=== PATIENT | male | born 1935 | race Caucasian/White ===

== ENCOUNTER 2020-04-11 13:55 | Inpatient (IN) ==
[2020-04-11] MEDS ORDERED: 0.9 % SODIUM CHLORIDE 1,000 ML IV ONE ×2 (15:27→17:23)
[2020-04-11] MEDS ORDERED: HYDROmorphone 0.5 MG/0.5 ML SYRINGE IV PRN (15:27)
[2020-04-11] MEDS ORDERED: ONDANSETRON 4 MG/2 ML VIAL IV ONE (15:27)
[2020-04-11] MEDS ORDERED: PIPERACILLIN SODIUM/TAZOBACTAM 3.375 GM in DEXTROSE 5% IN WATER 50 ML IV ONE (15:55)
[2020-04-11 16:56] LABS: Basophils # (Auto) 0.01 K/mcL (0.00-0.20); Basophils % (Auto) 0.1 % (0.0-2.0); Eosinophils # (Auto) 0.07 K/mcL (0.00-0.70); Eosinophils % (Auto) 0.8 % (0.0-7.0); Hematocrit 39.3 % (41.0-55.0); Hemoglobin 14.6 g/dL (13.5-16.5); Lymphocytes % (Auto) 14.3 % (15.0-49.0); Mean Cell Volume 91.4 fL (80.0-100.0); Mean Corpuscular HGB Conc 37.2 g/dL (31.0-36.0); Mean Platelet Volume 11.1 fL (7.4-10.4); Monocytes # (Auto) 1.18 K/mcL (0.10-0.90); Neutrophils % (Auto) 71.8 % (38.0-78.0); Platelet Count 227 K/mcL (140-440); Red Cell Distribution Width 12.2 % (11.5-14.5); WBC 9.1 K/mcL (4.5-11.0)
[2020-04-11 17:01] LABS: Thyroid Stimulating Hormone 2.68 uIU/mL (0.27-5.01)
[2020-04-11 17:06] LABS: ALT/SGPT 20 U/L (<40); AST/SGOT 28 U/L (<40); Albumin 3.8 gm/dL (3.2-5.2); Albumin/Globulin Ratio 1.1 (1.0-2.3); Alkaline Phosphatase 94 U/L (39-117); Bilirubin,Total 0.6 mg/dL (0.1-1.0); Blood Urea Nitrogen 72 mg/dL (8-23); Calcium 9.6 mg/dL (8.6-10.4); Carbon Dioxide 27 mmol/L (22-30); Chloride 80 mmol/L (96-108); Globulin 3.4 gm/dL (2.2-3.7); Glomerular Filtration Rate 20; Glucose 138 mg/dL (70-105)
[2020-04-11] MEDS ORDERED: POTASSIUM CHLORIDE 20 MEQ TABLET PO ONE ×2 (17:07→22:00)
[2020-04-11] MEDS ORDERED: POTASSIUM CHLORIDE 40 MEQ in DEXTROSE 5% IN WATER 500 ML IV ONE (17:07)
--- NOTE | 2020-04-11 17:13 | Emergency Department Note ---
HPI General Chief complaint: Weakness Stated complaint: Weak, cough Time Seen by Provider: 04/11/20 14:32 Source: patient and EMS Mode of arrival: EMS Limitations: no limitations History of Present Illness HPI Narrative: Narrative: Related Data Home Medications Medication Instructions Recorded Confirmed apixaban [Eliquis] 2.5 mg PO BID 04/11/20 04/11/20 atenolol 25 mg PO QDAY 04/11/20 04/11/20 fosinopril 40 mg PO QDAY 04/11/20 04/11/20 furosemide 80 mg PO QDAY 04/11/20 04/11/20 omeprazole 2 PO 04/11/20 simvastatin 10 mg PO QHS 04/11/20 04/11/20 Allergies Allergy/AdvReac Type Severity Reaction Status Date / Time NKA Allergy Unknown Uncoded 07/18/14 05:17 No to Iodine Allergy Unknown Unknown Uncoded 07/18/14 05:17 No to Latex Allergy Unknown Uncoded 07/18/14 05:17 Review of Systems ROS ROS Narrative: Narrative: PFSH Narrative Patient History Narrative: Narrative: Medical/Surgical/Family History All Active Problems (Updated 04/11/20 @ 18:02 by Moses Collins DO) Sepsis (Acute) Hypokalemia (Acute) Acute renal failure (ARF) (Acute) Hyponatremia (Acute) Hypermagnesemia (Acute) Elevated brain natriuretic peptide (BNP) level (Acute) Chronic anticoagulation (Acute) Daily consumption of alcohol (Acute) Obesity (BMI 30.0-34.9) (Acute) History of CHF (congestive heart failure) (Acute) Atrial fibrillation, chronic (Acute) Medical History (Updated 04/11/20 @ 18:02 by Moses Collins DO) Atrial fibrillation, chronic Chronic anticoagulation Apixaban/Eliquis Daily consumption of alcohol Was six beer per day. Changing to three drinks per day in March 2020. History of CHF (congestive heart failure) Presumptive, based on patient's description of why he was put on diuretics s everal years ago with "some fluid around my heart and lungs" and given by a clinical trial manager. Obesity (BMI 30.0-34.9) Surgical History (Updated 04/11/20 @ 17:50 by Moses Collins DO) History of appendectomy History of arthroscopy of right knee History of herniorrhaphy Umbilical History of herniorrhaphy Inguinal History of repair of right rotator cuff History of tonsillectomy Family History (Updated 04/11/20 @ 17:52 by Moses Collins DO) Myocardial infarction Mother, Onset Age: 78 Social History Smoking Status: Unknown if ever smoked Exam Narrative Narrative: Narrative: General Limitations: no limitations General appearance: Present alert, grimacing (At times with generalized discomforts.), in no apparent distress, malaise (Moderate) and nontoxic Head Head: Present atraumatic and normocephalic Eye Eye: Present normal appearance, PERRL and EOMI ENT ENT: Present mucous membranes dry Neck Neck: Present trachea midline; Absent lymphadenopathy and thyromegaly Chest Chest: Present symmetric chest wall rise Respiratory Respiratory: Present normal lung sounds bilaterally; Absent respiratory distress, rales/crackles, wheezes, stridor, accessory muscle use and prolonged expiratory phase Cardiovascular Cardiovascular: Present regular rate and irregular rhythm; Absent systolic murmur and diastolic murmur Adbominal Abdominal: Present soft; Absent distention, tenderness, guarding, rebound, rigidity, organomegaly and mass Extremities Extremities: Present pretibial edema (Trace or mild); Absent pedal edema, calf tenderness and cyanosis Back Back: Absent CVA tenderness (R), CVA tenderness (L) and spinous process tenderness Neurological Neurological: Present alert and oriented X3 Psychiatric Psychiatric: Present normal affect, flat affect (Mildly) and serious; Absent depressed, agitated, anxious and poor eye contact Skin Skin: Present warm (WNL), dry and other (Moderate to large skin slip on the outer left forearm with the slip not perfectly in place. On the right lower extremity has a bandaged lesion.); Absent cyanosis and pallor Course Vital Signs Vital signs: Vital Signs Temperature 97 F 04/11/20 13:56 Pulse Rate 61 04/11/20 13:56 Respiratory Rate 18 04/11/20 13:56 Blood Pressure 120/81 04/11/20 13:56 Pulse Oximetry (%) 96 04/11/20 13:56 Temperature 97 F 04/11/20 13:56 Pulse Rate 91 H 04/11/20 15:46 Respiratory Rate 18 04/11/20 16:31 Blood Pressure 137/87 04/11/20 17:17 Pulse Oximetry (%) 100 04/11/20 15:46 MDM MDM Narrative Medical decision making narrative: Narrative: 2:58 PM - interviewed and examined. Terms of multiple organ systems. Rule out sepsis, a urinary tract infection, dehydration, cardiac or metabolic or infectious complicating concerns and/or issues. Multiple labs, imaging, etc. EKG demonstrates atrial fibrillation without ACS. 5:06 PM - potassium level called as 2.5. Magnesium a bit elevated at 3.2. BNP elevated at 5576. No prior levels to compare with. Troponin 0 0.01. TSH 2.68. CBC is largely unremarkable. (Very slight decrease under normal of RBC at 4.30 (4.5-5.90) and hematocrit of 39.3 (41.0-55.0). CMP is pending. Because of the low potassium will go ahead with a potassium rider and oral potassium. 5:08 PM - chest x-ray on my review: No specific infiltrate (unless at the right cardiophrenic border). No pneumo. Ribs unremarkable. Borderline cardiomegaly. Fissures in the right side appeared to be visible/present. Possible mild CHF. 5:11 PM - CMP returns with a sodium also low at 128, chloride of 80, anion gap of 21.0, BUN 72, creatinine 2.8. Glucose is 138. 5:15 PM - spoke with patient and he reports he has no history prior of kidney disease. His CODE STATUS he indicates his DNR. He requested Covid test. He is likely to be admitted based on his Creatinine of 2.8, potassium of 2.5, and probable sepsis with a lactic acid elevated. I will request previous labs from [facility], February,. 5:20 PM -labs from [facility] on date February include a creatinine of 1.0 in the labs of 2 days prior were 1.1. In other words, he has acute renal failure presently. His urine was moderately dark yellow-orange just now. A year ago did have minor anemia at that time. Glucose was normal. Urine was unremarkable at that time Chest x-ray on 14 February demonstrated "infiltrate in the right upper lobe suspect for pneumonia." 5:32 AM - I spoke with Dr. Rosas, wool supplier, who will consult on patient. He requests order of a urine eosinophil evaluation which I ordered. He recommends this based on patient recently being on the Bactrim. He is aware of the elevated magnesium and the oral and IV potassium replacement. A second liter of normal saline also was previously initiated. Blood cultures were also obtained and Zosyn previously given. Urine was already sent for a culture but likely to be negative because of patient having his last antibiotic this morning. 5:46 PM - I spoke with Dr. Garcia, hospitalist, who will see patient and admit him to the hospital, assuming care. Lab Data Result diagrams: 04/11/20 15:53 04/11/20 15:53 Labs: Lab Results 04/11/20 04/11/20 04/11/20 Range/Units 15:53 15:53 15:53 WBC 9.1 (4.5-11.0) K/mcL RBC 4.30 L (4.50-5.90) M/mcL Hgb 14.6 (13.5-16.5) g/dL Hct 39.3 L (41.0-55.0) % MCV 91.4 (80.0-100.0) fL MCH 34.0 (26.0-34.0) pg MCHC 37.2 H (31.0-36.0) g/dL RDW 12.2 (11.5-14.5) % Plt Count 227 (140-440) K/mcL MPV 11.1 H (7.4-10.4) fL Neut % (Auto) 71.8 (38.0-78.0) % Lymph % (Auto) 14.3 L (15.0-49.0) % [place] % (Auto) 13.0 H (1.0-12.0) % Eos % (Auto) 0.8 (0.0-7.0) % Baso % (Auto) 0.1 (0.0-2.0) % Lymph # (Auto) 1.30 L (1.50-4.80) K/mcL [place] # (Auto) 1.18 H (0.10-0.90) K/mcL Eos # (Auto) 0.07 (0.00-0.70) K/mcL Baso # (Auto) 0.01 (0.00-0.20) K/mcL Absolute Neutrophils 6.55 (1.80-8.00) K/mcL Sodium 128 L (133-145) mmol/L Potassium 2.5 L* (3.3-5.1) mmol/L Chloride 80 L (96-108) mmol/L Carbon Dioxide 27 (22-30) mmol/L Anion Gap 21.0 H (8.0-16.0) BUN 72 H (8-23) mg/dL Creatinine 2.8 H (0.7-1.2) mg/dL GFR Calculation 20 Glucose 138 H (70-105) mg/dL Calcium 9.6 (8.6-10.4) mg/dL Magnesium 3.2 H (1.6-2.5) mg/dL Total Bilirubin 0.6 (0.1-1.0) mg/dL AST 28 (<40) U/L ALT 20 (<40) U/L Alkaline Phosphatase 94 (39-117) U/L Troponin T 0.01 (<0.03) ng/mL NT-Pro-B Natriuret Pep 5576.0 H (<450.0) pg/mL Total Protein 7.2 (5.9-8.4) gm/dL Albumin 3.8 (3.2-5.2) gm/dL Globulin 3.4 (2.2-3.7) gm/dL Albumin/Globulin Ratio 1.1 (1.0-2.3) TSH 2.68 (0.27-5.01) uIU/mL Discharge Plan Patient/Caregiver Discharge Instructions Pt seen by [employer]/PA only: No Clinical Impression: Sepsis, Hypokalemia, Acute renal failure (ARF), Hyponatremia, Hypermagnesemia, Elevated brain natriuretic peptide (BNP) level Patient Disposition: Xfer As Inpt ([facility]) Follow up with: Fitz Deleon MD [Primary Care Provider] - Prescriptions: No Action simvastatin 10 mg Tablet 10 mg PO QHS RF: 0 atenolol 25 mg Tablet 25 mg PO QDAY RF: 0 furosemide 80 mg Tablet 80 mg PO QDAY RF: 0 fosinopril 40 mg Tablet 40 mg PO QDAY RF: 0 Eliquis 2.5 mg Tablet 2.5 mg PO BID RF: 0 omeprazole 20 mg Capsule,Delayed Release(Dr/Ec) 2 PO RF: 0
[2020-04-11] MEDS ORDERED: POTASSIUM CHLORIDE 20 MEQ/10 ML VIAL IV ONE (17:36)
--- NOTE | 2020-04-11 18:06 | Internal Med History&Physical ---
HPI History of Present Illness Patient information: Note initiated : 04/11/20 at 5:57 pm Service Date, if different from initiated Date: [] Patient: Isaac Conde a 85 y/o M admitted on for Weak, cough. Chief Complaint: [] History of present illness: Mr. Conde is a 85 year old M Presents the ED with generalized aches and pains and feeling very weak and fatigued. He states that he started feeling crummy about a week ago. Was diagnosed with urinary tract infection and has had dysuria urgency frequency. He finished Bactrim this morning. Because of the worsening of his weakness generalized aches and pains that he came in the ED. All signs are stable. However he did have a hyponatremia and hypokalemia. He had acute kidney injury and an elevated lactate 3.5. Urinalysis is pending. He was started on IV antibiotics and given IV fluid boluses. Case discussed with Dr. Rosas who recommended checking urine eosinophils as since has been on Bactrim. Also describes decreased oral intake the past few days. Denies fever chills. Denies chest pain/ coughing. No diarrhea. Review of Systems: Pertinent positives as above. Denies headache/fever/chills/nausea/vomiting/chest or abdominal pain/cough/diarrhea. Remaining 10 point review of system reviewed negative PFSH PFSH All Active Problems (Updated 04/11/20 @ 18:02 by Moses Collins DO) Sepsis (Acute) Hypokalemia (Acute) Acute renal failure (ARF) (Acute) Hyponatremia (Acute) Hypermagnesemia (Acute) Elevated brain natriuretic peptide (BNP) level (Acute) Chronic anticoagulation (Acute) Daily consumption of alcohol (Acute) Obesity (BMI 30.0-34.9) (Acute) History of CHF (congestive heart failure) (Acute) Atrial fibrillation, chronic (Acute) Medical History (Updated 04/11/20 @ 18:02 by Moses Collins DO) Atrial fibrillation, chronic Chronic anticoagulation Apixaban/Eliquis Daily consumption of alcohol Was six beer per day. Changing to three drinks per day in March 2020. History of CHF (congestive heart failure) Presumptive, based on patient's description of why he was put on diuretics several years ago with "some fluid around my heart and lungs" and given by a rn maternal child. Obesity (BMI 30.0-34.9) Surgical History (Updated 04/11/20 @ 17:50 by Moses Collins DO) History of appendectomy History of arthroscopy of right knee History of herniorrhaphy Umbilical History of herniorrhaphy Inguinal History of repair of right rotator cuff History of tonsillectomy Family History (Updated 04/11/20 @ 17:52 by Moses Collins DO) Mother Myocardial infarction, Onset Age: 78 Social History (Updated 04/11/20 @ 18:01 by Bashir Garcia DO) smoking status: Unknown if ever smoked additional history: Social history: Patient quit smoking in the early 80s drinks 4-6 drinks of alcohol per night but lately has cut down to 3. Uses a cane to ambulate sometimes a walker in the middle the night. By himself. MEDS/ALLERGIES Home Medications and Allergies Home Medications Medication Instructions Recorded Confirmed Type apixaban [Eliquis] 2.5 mg PO BID 04/11/20 04/11/20 History atenolol 25 mg PO QDAY 04/11/20 04/11/20 History fosinopril 40 mg PO QDAY 04/11/20 04/11/20 History furosemide 80 mg PO QDAY 04/11/20 04/11/20 History omeprazole 2 PO 04/11/20 History simvastatin 10 mg PO QHS 04/11/20 04/11/20 History Allergies Allergy/AdvReac Type Severity Reaction Status Date / Time NKA Allergy Unknown Uncoded 07/18/14 05:17 No to Iodine Allergy Unknown Unknown Uncoded 07/18/14 05:17 No to Latex Allergy Unknown Uncoded 07/18/14 05:17 EXAM Constitutional Vitals: Temp Pulse Resp BP Pulse Ox 97 F 91 H 18 137/87 100 04/11/20 13:56 04/11/20 15:46 04/11/20 16:31 04/11/20 17:17 04/11/20 15:46 Exam: General: Alert, Awake, No acute Distress, obese Eyes/N/T: EOMI, PERRL, dry MM, Head/Neck: neck supple, normocephalic atraumatic, no JVD CV: irreg irreg, No murmurs, normal s1/s2 Pulm: Clear b/l, no wheezing/rhonchi/rales Abd: soft, nontender, +BS x4 Ext: no clubbing/cyanosis, 2-3+ chronic b/l LE edema Neuro: Alert, no focal deficits, moves all extremities, CN 2-12 grossly intact, symmetrical strength b/l upper/lower, sensations intact b/l upper/lower Skin: warm/dry DATA Data Completed and Pending Labs: Labs from last 24 hours 04/11/20 04/11/20 04/11/20 16:23 16:23 16:23 WBC RBC Hgb Hct MCV MCH MCHC RDW Plt Count MPV Neut % (Auto) Lymph % (Auto) [place] % (Auto) Eos % (Auto) Baso % (Auto) Lymph # (Auto) [place] # (Auto) Eos # (Auto) Baso # (Auto) Absolute Neutrophils Sodium Potassium Chloride Carbon Dioxide Anion Gap BUN Creatinine GFR Calculation Glucose Calcium Magnesium Total Bilirubin AST ALT Alkaline Phosphatase Total Creatine Kinase Troponin T NT-Pro-B Natriuret Pep Total Protein Albumin Globulin Albumin/Globulin Ratio TSH Urine Eosinophils Ur Random Creatinine Pending Ur Random Sodium Pending Urine Urea Nitrogen Pending 04/11/20 04/11/20 04/11/20 16:23 15:53 15:53 WBC RBC Hgb Hct MCV MCH MCHC RDW Plt Count MPV Neut % (Auto) Lymph % (Auto) [place] % (Auto) Eos % (Auto) Baso % (Auto) Lymph # (Auto) [place] # (Auto) Eos # (Auto) Baso # (Auto) Absolute Neutrophils Sodium Potassium Chloride Carbon Dioxide Anion Gap BUN Creatinine GFR Calculation Glucose Calcium Magnesium Total Bilirubin AST ALT Alkaline Phosphatase Total Creatine Kinase Pending Troponin T 0.01 NT-Pro-B Natriuret Pep Total Protein Albumin Globulin Albumin/Globulin Ratio TSH Urine Eosinophils Pending Ur Random Creatinine Ur Random Sodium Urine Urea Nitrogen 04/11/20 04/11/20 15:53 15:53 WBC 9.1 RBC 4.30 L Hgb 14.6 Hct 39.3 L MCV 91.4 MCH 34.0 MCHC 37.2 H RDW 12.2 Plt Count 227 MPV 11.1 H Neut % (Auto) 71.8 Lymph % (Auto) 14.3 L [place] % (Auto) 13.0 H Eos % (Auto) 0.8 Baso % (Auto) 0.1 Lymph # (Auto) 1.30 L [place] # (Auto) 1.18 H Eos # (Auto) 0.07 Baso # (Auto) 0.01 Absolute Neutrophils 6.55 Sodium 128 L Potassium 2.5 L* Chloride 80 L Carbon Dioxide 27 Anion Gap 21.0 H BUN 72 H Creatinine 2.8 H GFR Calculation 20 Glucose 138 H Calcium 9.6 Magnesium 3.2 H Total Bilirubin 0.6 AST 28 ALT 20 Alkaline Phosphatase 94 Total Creatine Kinase Troponin T NT-Pro-B Natriuret Pep 5576.0 H Total Protein 7.2 Albumin 3.8 Globulin 3.4 Albumin/Globulin Ratio 1.1 TSH 2.68 Urine Eosinophils Ur Random Creatinine Ur Random Sodium Urine Urea Nitrogen A/P Narrative A/P Narrative: A: *UTI: *Sepsis: w/elevated lactate. 2/2 above *WILLIAM: 2/2 above + volume depletion + ?bactrim *Volume depletion: *Hyponatremia/hypokalemia (been mildly hyponatremic on old labs): *HTN/HLD: *COPD (typically uses 2L@night, but stopped on own 1-month ago): *Chronic Afib: On Eliquis and atenolol *Obesity: *GERD: *Alcohol use 4-6 drinks/day but cut back this month to 3: P: -Rocephin, pending UC/BC -IVF -Monitor renal function and urine output -Monitor electrolytes and replace -pending urine eosinophils -Continue home Eliquis/BB -Hold home ACEI/Lasix for renal fxn -compression wraps to legs -PT/OT -Clarify home medications, Spiriva -ppx: Eliquis/home PPI DNR Time Spent With Patient Time: Total time spent is greater than 50% in coordination of care (as documented) at patient's floor/unit and/or counseling patient:
--- NOTE | 2020-04-11 18:34 | Nephrology Consult Note ---
HPI Data of Consult Primary Care Provider: Fitz Deleon Consult Narrative Patient Information: Note initiated : 04/11/20 at 6:32 pm Service Date, if different from initiated Date: [] Patient: Isaac Conde 85 y/o M admitted on for Weak, cough. Chief Complaint: [ARF] I was called by the ED physician concerning an 85 yr male with a Hx of chronic A fib, CHF, morbid obesity and chronic EtOH intake. Prior records suggest SCr 1.0-1.2 over past 13 months. Developed UTI Sx ~1 week ROD [employer] and was on TMP/SMX till this am. Developed worsening myalgias and fatigue and was brought by EMS to ED Tm 36.1 BP 109/60-137/75 HR 30-90 with most in 60-70 range RR 20's 02 sat >95% Laboratory Results - last 48 hr 04/11/20 04/11/20 04/11/20 15:53 15:53 15:53 WBC 9.1 RBC 4.30 L Hgb 14.6 Hct 39.3 L MCV 91.4 MCH 34.0 MCHC 37.2 H RDW 12.2 Plt Count 227 MPV 11.1 H Neut % (Auto) 71.8 Lymph % (Auto) 14.3 L [place] % (Auto) 13.0 H Eos % (Auto) 0.8 Baso % (Auto) 0.1 Lymph # (Auto) 1.30 L [place] # (Auto) 1.18 H Eos # (Auto) 0.07 Baso # (Auto) 0.01 Absolute Neutrophils 6.55 Sodium 128 L Potassium 2.5 L* Chloride 80 L Carbon Dioxide 27 Anion Gap 21.0 H BUN 72 H Creatinine 2.8 H GFR Calculation 20 Glucose 138 H Calcium 9.6 Magnesium 3.2 H Total Bilirubin 0.6 AST 28 ALT 20 Alkaline Phosphatase 94 Total Creatine Kinase 185 Troponin T 0.01 NT-Pro-B Natriuret Pep 5576.0 H Total Protein 7.2 Albumin 3.8 Globulin 3.4 Albumin/Globulin Ratio 1.1 TSH 2.68 Ur Random Creatinine 85 Ur Random Sodium 25 Urine Urea Nitrogen 655 FeNa 0.84% FeUrea 26.7% Home meds: NOAC B-Suma ACEi PPi loop diuretic Statin cc:: CC: Review of Systems All systems: reviewed and no additional remarkable complaints except as stated Constitutional Constitutional: Present malaise and weakness; Absent fever(s) Cardiovascular Cardiovascular: Present dyspnea, leg edema and orthopnea Respiratory Respiratory: Present dyspnea on exertion Gastrointestinal Gastrointestinal: Absent diarrhea and vomiting Neurological Neurological: Present weakness Psychiatric Psychiatric: Present other (No hx of DT'd or EtOH withdrawal Sz); Absent hallucinations PFSH PFSH All Active Problems (Updated 04/11/20 @ 18:02 by Moses Collins DO) Sepsis (Acute) Hypokalemia (Acute) Acute renal failure (ARF) (Acute) Hyponatremia (Acute) Hypermagnesemia (Acute) Elevated brain natriuretic peptide (BNP) level (Acute) Chronic anticoagulation (Acute) Daily consumption of alcohol (Acute) Obesity (BMI 30.0-34.9) (Acute) History of CHF (congestive heart failure) (Acute) Atrial fibrillation, chronic (Acute) Medical History (Updated 04/11/20 @ 18:02 by Moses Collins DO) Atrial fibrillation, chronic Chronic anticoagulation Apixaban/Eliquis Daily consumption of alcohol Was six beer per day. Changing to three drinks per day in March 2020. History of CHF (congestive heart failure) Presumptive, based on patient's description of why he was put on diuretics several years ago with "some fluid around my heart and lungs" and given by a middle school history teacher. Obesity (BMI 30.0-34.9) Surgical History (Updated 04/11/20 @ 17:50 by Moses Collins DO) History of appendectomy History of arthroscopy of right knee History of herniorrhaphy Umbilical History of herniorrhaphy Inguinal History of repair of right rotator cuff History of tonsillectomy Family History (Updated 04/11/20 @ 17:52 by Moses Collins DO) Mother Myocardial infarction, Onset Age: 78 Social History (Updated 04/11/20 @ 18:01 by Bashir Garcia DO) smoking status: Unknown if ever smoked additional history: Social history: Patient quit smoking in the early 80s drinks 4-6 drinks of alcohol per night but lately has cut down to 3. Uses a cane to ambulate sometimes a walker in the middle the night. By himself. MEDS/ALLERGIES Home Medications and Allergies Home Medications Medication Instructions Recorded Confirmed Type apixaban [Eliquis] 2.5 mg PO BID 04/11/20 04/11/20 History atenolol 25 mg PO QDAY 04/11/20 04/11/20 History febuxostat [Uloric] 40 mg PO QDAY 04/11/20 04/11/20 History fosinopril 40 mg PO QDAY 04/11/20 04/11/20 History furosemide 40 mg PO BID 04/11/20 04/11/20 History magnesium 250 mg PO QDAY 04/11/20 04/11/20 History methylprednisolone 4 mg PO QAM 04/11/20 04/11/20 History omeprazole 80 mg PO DAILY 04/11/20 04/11/20 History simvastatin 10 mg PO QHS 04/11/20 04/11/20 History tiotropium bromide [Spiriva with 1 cap INHALATION QDAY 04/11/20 04/11/20 History HandiHaler] vitamins A,C,Q-gziq-mwwdif 2 tab PO BID 04/11/20 04/11/20 History [Ocuvite Preservision] Allergies Allergy/AdvReac Type Severity Reaction Status Date / Time No Known Drug Allergies Allergy Verified 04/11/20 20:11 Physical Examination Vital Signs Vital signs: Temp Pulse Resp BP Pulse Ox 36.1 C 68 23 H 136/73 100 04/11/20 13:56 04/11/20 18:16 04/11/20 18:16 04/11/20 18:16 04/11/20 18:16 General Appearance General appearance: obese and chronically ill EENT EENT: PERRL and mucous membranes dry Neck Neck: no JVD and no carotid bruit Respiratory Respiratory: course breath sounds and rhonchi Cardiovascular Cardiology: no rub, no gallops, edema, normal S1 and normal S2 Integumentary Integumentary: erythema, ecchymotic, chronic venous stasis and hyperkeratosis Neurologic Neurologic: no focal deficit, no asterixis, alert and oriented x3 and CN 3-12 intact Musculoskeletal Musculoskeletal: decreased ROM Psychiatric Psychiatric: mood/affect appropriate Results Lab Results Result Diagrams: 04/11/20 15:53 04/11/20 15:53 Lab results: Most recent lab results Calcium 9.6 mg/dL (8.6-10.4) 04/11/20 15:53 Magnesium 3.2 mg/dL (1.6-2.5) H 04/11/20 15:53 A/P Assessment and plan (1) Acute renal failure (ARF): Assessment and plan: D/Dx 1. Acute prerenal azotemia Evidenced by low FeNa Likely etiology is dehydration from look diuretics and decreased po intake in combination with ACEi and possible underlying CHF If this is the case should improve within 72 hours after holding fosinopril and lasix Hydrate Review U/A 2. Recent Bactrim therapy requires examination for signs and sx of Acute Interstitial Nephritis. Urine eos Check peripheral smear for eos ESR and CRP 3. Obstruction Renal U/S 4. GN Nothing to date to suggest this Review urine studies 5. ATN Could have some early ATN but urine indicies currently favor prerenal insult Look for casts in urine Low CPK makes rhabdomyolysis unlikely Status: Acute Qualifiers: Acute renal failure type: unspecified Qualified Code(s): N17.9 - Acute kidney failure, unspecified (2) Hypokalemia: Assessment and plan: The combination of low Na and K strongly suggests diuretic related plus excess free water and low K intake from excessive BEER intake If he has CHF, sharad levels are usually high and contribute to the hyponatremia He must have a profound deficiency in K at baseline as Bactrim, ACEi and ARF all tend to raise the serum potassium. Check for GI K losses with diarrhea Status: Acute (3) Hyponatremia: Assessment and plan: As above: loop diuretics and excess free H20 (Beer) tend to drive Na down, as dose low grade elevation of Ang II/Sharad system with CHF. NS IV and free water restriction upon dischaarge Needs to quit drinking beer Status: Acute (4) Daily consumption of alcohol: Assessment and plan: Stopping EtOH will be colon to correcting and preventing future electrolyte abnormalities. Status: Acute Comment: Was six beer per day. Changing to three drinks per day in March 2020. Time Spent With Patient Time: Total time spent is greater than 50% in coordination of care (as joel dawson) at patient's floor/unit and/or counseling patient:
[2020-04-11] MEDS ORDERED: ONDANSETRON 4 MG/2 ML VIAL IV PRN (18:55)
[2020-04-11] MEDS ORDERED: POTASSIUM CHLORIDE 20 MEQ TABLET PO PRN ×2 (18:55)
[2020-04-11] MEDS ORDERED: SENNOSIDES 1 TABLET PO PRN (18:55)
[2020-04-11] MEDS ORDERED: POTASSIUM CHLORIDE 40 MEQ in DEXTROSE 5% IN WATER 500 ML IV PRN (18:55)
[2020-04-11] MEDS ORDERED: IPRATROPIUM/ALBUTEROL 3 ML AMPUL.NEB NEB PRN (18:55)
[2020-04-11] MEDS ORDERED: MAGNESIUM SULFATE 2 GM/50 ML BAG IV PRN (18:55)
--- NOTE | 2020-04-11 19:06 | XRay Report ---
CLINICAL INFORMATION: short of breath, wekaness edema COMPARISON: 11/09/2007 FINDINGS: Heart size, mediastinum and pulmonary vessels are normal. Minimal patchy right basilar infiltrate has developed. No effusions. IMPRESSION: Minimal patchy right basilar infiltrate. Interpreted and Authenticated by: Durga Woo 04/11/20
[2020-04-11 19:34] LABS: Appearance,Urine CLEAR (Clear); Bilirubin,Urine Negative (Negative); Color,Urine AMBER; Glucose,Urine (UA) Negative (Negative); Ketones,Urine 5 mg/dL (Negative); Leukocyte Esterase,Urine 250 /ug (Negative); Mucus,Urine FEW /hpf; Nitrate,Urine Color Interference (Negative); Protein,Urine 30 mg/dL (Negative); Specific Gravity,Urine 1.016 (1.000-1.035); Urine Blood Negative (Negative); Urine Hyaline Cast 19 /lph (0-2); Urine RBC 2 /hpf (0-3); Urine Squamous Epithelial Cell 0 /hpf (0-4); Urine WBC > 182 /hpf (0-4)
[2020-04-11 19:37] LABS: Culture Indicated,Urine No
[2020-04-11] MEDS: APIXABAN 5 MG TABLET PO SCH (21:14)
[2020-04-11] MEDS: cefTRIAXone 2 GM in DEXTROSE 5% IN WATER 50 ML IV SCH (21:14)
[2020-04-11] MEDS ORDERED: cefTRIAXone 2 GM VIAL ONE (21:14)
[2020-04-11] MEDS: DOCUSATE SODIUM 100 MG CAPSULE PO SCH (21:15)
[2020-04-11] MEDS: SIMVASTATIN 10 MG TABLET PO SCH (21:15)
[2020-04-11] MEDS: 0.9 % SODIUM CHLORIDE 10 ML SYRINGE IV SCH (21:15)
[2020-04-12] MEDS: 0.9 % SODIUM CHLORIDE 1,000 ML IV SCH ×3 (01:01→14:12)
[2020-04-12] MEDS: 0.9 % SODIUM CHLORIDE 10 ML SYRINGE IV SCH ×3 (05:56→21:32)
[2020-04-12 06:50] LABS: Hematocrit 34.6 % (41.0-55.0); Hemoglobin 12.4 g/dL (13.5-16.5); Mean Cell Volume 92.8 fL (80.0-100.0); Mean Corpuscular HGB Conc 35.8 g/dL (31.0-36.0); Mean Platelet Volume 10.4 fL (7.4-10.4); Platelet Count 178 K/mcL (140-440); RBC 3.73 M/mcL (4.50-5.90); Red Cell Distribution Width 12.3 % (11.5-14.5); WBC 7.4 K/mcL (4.5-11.0)
[2020-04-12] MEDS: PANTOPRAZOLE 40 MG PACKET PO SCH (07:43)
[2020-04-12 07:59] LABS: ALT/SGPT 17 U/L (<40); AST/SGOT 25 U/L (<40); Albumin 3.1 gm/dL (3.2-5.2); Albumin/Globulin Ratio 1.2 (1.0-2.3); Alkaline Phosphatase 73 U/L (39-117); Bilirubin,Direct < 0.2 mg/dL (<0.3); Bilirubin,Total 0.5 mg/dL (0.1-1.0); Blood Urea Nitrogen 55 mg/dL (8-23); Calcium 8.2 mg/dL (8.6-10.4); Carbon Dioxide 29 mmol/L (22-30); Chloride 91 mmol/L (96-108); Globulin 2.5 gm/dL (2.2-3.7); Glomerular Filtration Rate 26; Glucose 93 mg/dL (70-105); Lactate Dehydrogenase 255 U/L (135-225); Phosphorous 2.2 mg/dL (2.5-4.5); Triglycerides 211 mg/dL (<150); Uric Acid 10.7 mg/dL (2.5-8.0)
[2020-04-12] MEDS: ATENOLOL 25 MG TABLET PO SCH (08:41)
[2020-04-12] MEDS: DOCUSATE SODIUM 100 MG CAPSULE PO SCH ×2 (08:41→21:30)
[2020-04-12] MEDS: APIXABAN 5 MG TABLET PO SCH ×2 (08:42→21:29)
--- NOTE | 2020-04-12 08:47 | Internal Med Progress Note ---
SUBJECTIVE Subjective Patient information: Note initiated : 04/12/20 at 8:41 am Service Date, if different from initiated Date: [] Patient: Isaac Conde 85 y/o M admitted on 04/11/20 for Weak, cough. Chief Complaint: [] Interval history: History of present illness: Mr. Conde is a 85 year old M Presents the ED with generalized aches and pains and feeling very weak and fatigued. He states that he started feeling crummy about a week ago. Was diagnosed with urinary tract infection and has had dysuria urgency frequency. He finished Bactrim this morning. Because of the worsening of his weakness generalized aches and pains that he came in the ED. All signs are stable. However he did have a hyponatremia and hypokalemia. He had acute kidney injury and an elevated lactate 3.5. Urinalysis is pending. He was started on IV antibiotics and given IV fluid boluses. Case discussed with Dr. Rosas who recommended checking urine eosinophils as since has been on Bactrim. Also describes decreased oral intake the past few days. Denies fever chills. Denies chest pain/ coughing. No diarrhea. 04/12 Patient feeling better today no overnight event or new complaints. Low potassium. But improved renal function. Review of Systems: denies headache/fever/chills/nausea/vomiting/chest or abdominal pain/cough/dyspnea/diarrhea. Otherwise see above. Constitutional Vitals: Vital Signs Temp Pulse Resp BP Pulse Ox 98.5 F 79 18 135/70 96 04/12/20 06:49 04/12/20 06:49 04/12/20 06:49 04/12/20 06:49 04/12/20 06:49 Period Temp Pulse Resp BP Sys/Koo Pulse Ox Last 24 Hr 97 F-98.5 F 30-91 16-27 109-137/59-89 93-100 Intake and Output 04/11/20 04/12/20 04/12/20 21:59 05:59 13:59 Intake Total 1100 1940 240 Output Total 125 550 250 Balance 975 1390 -10 Weight 108.136 kg Intake & Output: Intake & Output 04/11/20 04/12/20 04/12/20 21:59 05:59 13:59 Intake Total 1100 1940 240 Output Total 125 550 250 Balance 975 1390 -10 Weight 108.136 kg Intake: IV 1100 1520 Sodium Chloride 0.9% 1,000 ml @ 1000 1000 Wide Open IV BOLUS ONE Rx#: [id number] Zosyn 3.375 gm In Dextrose 5% 50 in Water 50 ml @ 100 mls/hr IV ONCE ONE Rx#:[id number] Potassium Chloride 40 Meq In 520 Dextrose 5% in Water 500 ml @ 130 mls/hr IV ONCE ONE Rx#: [id number] Rocephin 2 gm In Dextrose 5% in 50 Water 50 ml @ 100 mls/hr IV Q24H [facility] Rx#:[id number] Oral 420 240 Output: Void Amount 125 550 250 Other: Meal Breakfast Percent of Meal Consumed 25% Feeding Ability Independent Urine Appearance Clear Clear Clear Urine Color [employer] Bright Yellow Exam: General: Alert, Awake, No acute Distress, obese Eyes/N/T: EOMI, Head/Neck: neck supple, CV: irreg irreg, No murmurs, Pulm: Clear b/l, no wheezing/rhonchi/rales Abd: soft, nontender, +BS x4 Ext: no clubbing/cyanosis, 2-3+ chronic b/l LE edema Neuro: Alert, no focal deficits, moves all extremities, Skin: warm/dry OBJ DATA Labs CBC & Chem 7: 04/12/20 05:24 04/12/20 05:24 Labs: Abnormal Lab Results 04/12/20 04/12/20 04/12/20 05:24 05:24 05:24 RBC 3.73 L Hgb 12.4 L Hct 34.6 L MCHC MPV Lymph % (Auto) [place] % (Auto) Lymph # (Auto) [place] # (Auto) Sodium 129 L Potassium 2.7 L* Chloride 91 L Anion Gap BUN 55 H Creatinine 2.2 H Glucose Uric Acid 10.7 H Calcium 8.2 L Phosphorus 2.2 L Magnesium 2.9 H Lactate Dehydrogenase 255 H NT-Pro-B Natriuret Pep Total Protein 5.6 L Albumin 3.1 L Triglycerides 211 H Procalcitonin 0.18 H Urine Protein Urine Ketones Urine Nitrate Urine Urobilinogen Ur Leukocyte Esterase Urine WBC Hyaline Casts Urine Mucus 04/11/20 04/11/20 04/11/20 17:30 15:53 15:53 RBC 4.30 L Hgb Hct 39.3 L MCHC 37.2 H MPV 11.1 H Lymph % (Auto) 14.3 L [place] % (Auto) 13.0 H Lymph # (Auto) 1.30 L [place] # (Auto) 1.18 H Sodium 128 L Potassium 2.5 L* Chloride 80 L Anion Gap 21.0 H BUN 72 H Creatinine 2.8 H Glucose 138 H Uric Acid Calcium Phosphorus Magnesium 3.2 H Lactate Dehydrogenase NT-Pro-B Natriuret Pep 5576.0 H Total Protein Albumin Triglycerides Procalcitonin Urine Protein 30 A Urine Ketones 5 A Urine Nitrate Color interference A Urine Urobilinogen 4.0 A Ur Leukocyte Esterase 250 A Urine WBC > 182 H Hyaline Casts 19 H Urine Mucus Few A Meds: Medications Acetaminophen (Acetaminophen 325 Mg Tablet) 650 mg PO Q6HP PRN PRN Reason: PAIN/FEVER > 101 Albuterol/Ipratropium (Ipratropium/Albuterol 3 Ml Ampul.Neb) 3 ml NEB Q4HP PRN PRN Reason: Shortness Of Breath Apixaban (Apixaban 5 Mg Tablet) 2.5 mg PO BID [facility] Last Admin: 04/11/20 21:14 Dose: 2.5 mg Documented by: Atenolol (Atenolol 25 Mg Tablet) 25 mg PO QDAY [facility] Docusate Sodium (Docusate Sodium 100 Mg Capsule) 100 mg PO BID [facility] Last Admin: 04/11/20 21:15 Dose: 100 mg Documented by: Potassium Chloride 40 meq/ (Dextrose) 520 mls @ 130 mls/hr IV UD PRN PRN Reason: Potassium < 3 Magnesium Sulfate (Magnesium Sulfate) 2 gm in 50 mls @ 50 mls/hr IV UD PRN PRN Reason: Magnesium </= 1.6 Sodium Chloride (Sodium Chloride 0.9%) 1,000 mls @ 100 mls/hr IV .Q10H [facility] Last Admin: 04/12/20 05:55 Dose: Not Given Documented by: Ceftriaxone Sodium 2 gm/ (Dextrose) 50 mls @ 100 mls/hr IV Q24H [facility]; Protocol Last Infusion: 04/11/20 21:55 Dose: Infused Documented by: Ondansetron HCl (Ondansetron 4 Mg/2 Ml Vial) 4 mg IV Q4HP PRN PRN Reason: Nausea And Vomiting Pantoprazole Sodium (Pantoprazole 40 Mg Packet) 40 mg PO QAMAC [facility] Last Admin: 04/12/20 07:43 Dose: 40 mg Documented by: Polyethylene Glycol (Polyethylene Glycol 3350 17 Gm Packet) 17 gm PO DAILYP PRN PRN Reason: Constipation Potassium Chloride (Potassium Chloride 20 Meq Tablet) 40 meq PO UD PRN PRN Reason: Potssium is 3-3.5 Potassium Chloride (Potassium Chloride 20 Meq Tablet) 40 meq PO UD PRN PRN Reason: Potassium < 3 Senna (Sennosides 1 Tablet) 2 tab PO DAILYP PRN PRN Reason: Constipation Simvastatin (Simvastatin 10 Mg Tablet) 10 mg PO QHS [facility] Last Admin: 04/11/20 21:15 Dose: 10 mg Documented by: Sodium Chloride (0.9 % Sodium Chloride 10 Ml Syringe) 10 ml IV Q8 [facility] Last Admin: 04/12/20 05:56 Dose: Not Given Documented by: A/P Narrative A/P Narrative: A: *UTI: *Sepsis: w/elevated lactate. 2/2 above *WILLIAM unkown baseline: 2/2 above + volume depletion + ?bactrim -improving *Volume depletion: *Hyponatremia/hypokalemia (has been mildly hyponatremic on old labs): -hypermag, is on supp daily at home *Generalized weakness/deconditioning: improving *HTN/HLD: *COPD (typically uses 2L@night, but stopped on own 1-month ago): -states he is on methylprednisolone for copd *Chronic Afib: On Eliquis and atenolol *Obesity: *GERD: *Alcohol use 4-6 drinks/day but cut back this month to 3: P: -Rocephin, pending UC/BC -IVF -Monitor renal function and urine output -Monitor electrolytes and replace -Continue home Eliquis/BB -Hold home ACEI/Lasix for renal fxn -cont home methylprednisolone -compression wraps to legs -PT/OT -ciwa monitor -ppx: Eliquis/home PPI DNR Time Spent With Patient Time: Total time spent is greater than 50% in coordination of care (as documented) at patient's floor/unit and/or counseling patient: QUALITY Stroke Symptom Onset Unknown: No VTE Deep Vein Thrombosis/Pulmonary Embolism Present on Admission: No
[2020-04-12] MEDS: cefTRIAXone 2 GM in DEXTROSE 5% IN WATER 50 ML IV SCH (09:47)
[2020-04-12] MEDS: TIOTROPIUM BROMIDE 18 MCG INHALANT INH SCH (09:48)
[2020-04-12 10:01] LABS: Band Neutrophils % 1 % (0-10); Lymphocytes % 8 % (15-49); Monocytes % (Manual) 6 % (1-12); Platelet Estimate NORMAL (Normal); RBC Morphology NORMAL (Normal); Segmented Neutrophils % 85 % (38-78)
--- NOTE | 2020-04-12 14:19 | Nephrology Progress Note ---
SUBJECTIVE Subjective Patient information: Note initiated : 04/12/20 at 2:13 pm Service Date, if different from initiated Date: [] Patient: Isaac Conde 85 y/o M admitted on 04/11/20 for Weak, cough. Chief Complaint: [feels bad all over] Patient admitted with recnt UTI tx with bactrim..Hx of daily EtOH use, CHF on Loop diuretic and ACEi. Hyponatremia, hypokalemia, and acute on chronic renal failure. Though to be septic by ED physician but I see little to support the Dx of sepsis (no fever, elevated WBC, hemodynamic instability or positive cultures), only a mildly elevated lactic acid. Now on vanco/ceftriaxone but I doubt sepsis Suspect pyuria has more to do with Acute tubulointerstial nephritis than infection I'd stop ABx when cultures return negative. Urine eos negative PO fluid restriction for hyponatremia Replace K and PO4 Spironolactone and Atenolol but ACEi and loop diuretic on hold Constitutional Vitals: Vital Signs Temp Pulse Resp BP Pulse Ox 36.7 C 82 20 114/68 96 04/12/20 11:00 04/12/20 11:00 04/12/20 11:00 04/12/20 11:00 04/12/20 11:00 Period Temp Pulse Resp BP Sys/Koo Pulse Ox Last 24 Hr 36.1 C-36.9 C 30-91 16-27 109-137/59-89 93-100 Intake and Output 04/12/20 04/12/20 04/12/20 05:59 13:59 21:59 Intake Total 1939 2049 Output Total 550 350 Balance 1390 1700 Intake & Output: Intake & Output 04/12/20 04/12/20 04/12/20 05:59 13:59 21:59 Intake Total 1939 2049 Output Total 550 350 Balance 1390 1700 Intake: IV 1520 1570 Sodium Chloride 0.9% 1,000 ml @ 1000 1000 100 mls/hr IV .Q10H [facility] Rx#: [id number] Potassium Chloride 40 Meq In 520 520 Dextrose 5% in Water 500 ml @ 130 mls/hr IV UD PRN Rx#: [id number] Rocephin 2 gm In Dextrose 5% in 50 Water 50 ml @ 100 mls/hr IV Q24H [facility] Rx#:[id number] Oral 420 480 Output: Void Amount 550 350 Other: Meal Lunch Percent of Meal Consumed 50% Feeding Ability Independent Urine Appearance Clear Clear Urine Color [place] Bright Yellow Laboratory Tests 04/12/20 04/12/20 05:24 05:24 Sodium 129 L Potassium 2.7 L* Chloride 91 L Carbon Dioxide 29 Anion Gap 9.0 BUN 55 H Creatinine 2.2 H GFR Calculation 26 Glucose 93 Uric Acid 10.7 H Calcium 8.2 L Phosphorus 2.2 L Magnesium 2.9 H AST 25 ALT 17 Alkaline Phosphatase 73 Lactate Dehydrogenase 255 H Albumin 3.1 L Procalcitonin 0.18 H 04/11/20 04/11/20 16:23 17:30 Urine pH 6.0 Ur Specific [place] 1.016 Urine Protein 30 A Urine Glucose (UA) Negative Urine Ketones 5 A Ur Leukocyte Esterase 250 A Urine RBC 2 Urine WBC > 182 H Urine Bacteria None Urine Eosinophils None seen General appearance: cooperative, no acute distress and obese Head Head exam: Present atraumatic and normocephalic Eye Eye exam: Present EOMI and PERRL ENT ENT exam: Present normal external ear exam Neck Neck exam: Present meningismus and normal inspection Respiratory Respiratory exam: Present decreased breath sounds Cardiovascular Cardiovascular exam: Present normal rate and rhythm, +S1 and +S2 GI/Abdominal GI/Abdominal exam: Present normal bowel sounds Neurological Exam Neurological exam: Present CN II-XII intact and oriented X3 Psychiatric Psychiatric exam: Present normal affect Skin Skin exam: Present dry; Absent rash Additional comments: ecchymosis A/P Assessment and plan (1) Acute renal failure (ARF): Assessment and plan: Acute renal failure (ARF): Assessment and plan: D/Dx 1. Acute prerenal azotemia Evidenced by low FeNa Likely etiology is dehydration from look diuretics and decreased po intake in combination with ACEi and possible underlying CHF If this is the case should improve within 72 hours after holding fosinopril and lasix Hydrate Review U/A 2. Recent Bactrim therapy requires examination for signs and sx of Acute Interstitial Nephritis. Urine eos Check peripheral smear for eos ESR and CRP 3. Obstruction Renal U/S 4. GN Nothing to date to suggest this Review urine studies 5. ATN Could have some early ATN but urine indicies currently favor prerenal insult Look for casts in urine Low CPK makes rhabdomyolysis unlikely Status: Acute Comment: Even though there are no eosinophils, the lg number of WBC and no bacteria s upports interstitial nephritis > UTI/sepsis Stop ABx if cultures negative at 48 hours Qualifiers: Acute renal failure type: unspecified Qualified Code(s): N17.9 - Acute kidney failure, unspecified (2) Hypokalemia: Assessment and plan: Hypokalemia: Assessment and plan: The combination of low Na and K strongly suggests diuretic related plus excess free water and low K intake from excessive BEER intake If he has CHF, sharad levels are usually high and contribute to the hyponatremia He must have a profound deficiency in K at baseline as Bactrim, ACEi and ARF all tend to raise the serum potassium. Check for GI K losses with diarrhea Status: Acute Comment: Replace K po/IV including KPO4 for phosphorous replacement Aldactone started for low K and CHF (3) Hyponatremia: Assessment and plan: Hyponatremia: Assessment and plan: As above: loop diuretics and excess free H20 (Beer) tend to drive Na down, as dose low grade elevation of Ang II/Sharad system with CHF. NS IV and free water restriction upon dischaarge Needs to quit drinking beer Status: Acute Comment: PO fluid restriction Use hyperosmolar TF (Nephro) in place of H2O to swallow Rx Stay on sodium restricted diet due to edema and probable CHF (4) Elevated brain natriuretic peptide (BNP) level: Status: Acute Comment: Sodium restrict diet Add spironolactone today, furosemide BID tomorrow Cardiac echo tomorrow Treat CHF with usual Tx of ACEi/ARB, loop diuretic and possibly B-benjie or ald osterone antagonist (5) History of CHF (congestive heart failure): Assessment and plan: As above Echocardiogrm Status: Acute Comment: Presumptive, based on patient's description of why he was put on diuretics several years ago with "some fluid around my heart and lungs" and given by a crop insurance claims adjuster. (6) Atrial fibrillation, chronic: Status: Chronic Comment: Noac and b-benjie Time Spent With Patient Time: Total time spent is greater than 50% in coordination of care (as docume nted) at patient's floor/unit and/or counseling patient:
[2020-04-12] MEDS ORDERED: POTASSIUM PHOSPHATE 20 MEQ in DEXTROSE 5% IN WATER 250 ML IV ONE (14:30)
[2020-04-12] MEDS: SPIRONOLACTONE 25 MG TABLET PO SCH (15:34)
[2020-04-12 16:10] LABS: POC Blood Urea Nitrogen 42 mg/dL (6-20); POC CO2 29 mmol/L (22-30); POC Calcium, Ionized 1.11 mmEq/L (1.16-1.32); POC Chloride 92 mEq/L (96-108); POC Glucose, Random 123 mg/dL (70-105); POC Hematocrit 35 % (41-55); POC Potassium 3.6 mEql/L (3.3-5.1); POC Sodium 130 mEq/L (133-145)
[2020-04-12 17:07] LABS: Uric Acid 8.9 mg/dL (2.5-8.0)
[2020-04-12] MEDS: SIMVASTATIN 10 MG TABLET PO SCH (21:30)
[2020-04-13] MEDS: POLYETHYLENE GLYCOL 3350 17 GM PACKET PO PRN ×2 (00:49→11:09)
[2020-04-13] MEDS: 0.9 % SODIUM CHLORIDE 1,000 ML IV SCH ×3 (00:59→12:03)
[2020-04-13] MEDS: 0.9 % SODIUM CHLORIDE 10 ML SYRINGE IV SCH ×3 (05:43→20:52)
[2020-04-13] MEDS: PANTOPRAZOLE 40 MG PACKET PO SCH (07:06)
[2020-04-13 07:17] LABS: ALT/SGPT 21 U/L (<40); AST/SGOT 36 U/L (<40); Albumin 3.3 gm/dL (3.2-5.2); Albumin/Globulin Ratio 1.1 (1.0-2.3); Alkaline Phosphatase 86 U/L (39-117); Bilirubin,Direct 0.2 mg/dL (<0.3); Bilirubin,Total 0.5 mg/dL (0.1-1.0); Blood Urea Nitrogen 37 mg/dL (8-23); Calcium 8.4 mg/dL (8.6-10.4); Carbon Dioxide 28 mmol/L (22-30); Chloride 94 mmol/L (96-108); Globulin 3.1 gm/dL (2.2-3.7); Glomerular Filtration Rate 42; Glucose 102 mg/dL (70-105); Lactate Dehydrogenase 332 U/L (135-225); Phosphorous 2.4 mg/dL (2.5-4.5); Triglycerides 168 mg/dL (<150); Uric Acid 8.3 mg/dL (2.5-8.0)
--- NOTE | 2020-04-13 07:31 | Internal Med Progress Note ---
SUBJECTIVE Subjective Patient information: Note initiated : 04/13/20 at 7:27 am Service Date, if different from initiated Date: [] Patient: Isaac Conde 85 y/o M admitted on 04/11/20 for Weak, cough. Chief Complaint: [] Interval history: History of present illness: Mr. Conde is a 85 year old M Presents the ED with generalized aches and pains and feeling very weak and fatigued. He states that he started feeling crummy about a week ago. Was diagnosed with urinary tract infection and has had dysuria urgency frequency. He finished Bactrim this morning. Because of the worsening of his weakness generalized aches and pains that he came in the ED. All signs are stable. However he did have a hyponatremia and hypokalemia. He had acute kidney injury and an elevated lactate 3.5. Urinalysis is pending. He was started on IV antibiotics and given IV fluid boluses. Case discussed with Dr. Rosas who recommended checking urine eosinophils as since has been on Bactrim. Also describes decreased oral intake the past few days. Denies fever chills. Denies chest pain/ coughing. No diarrhea. 04/12 Patient feeling better today no overnight event or new complaints. Low potassium. But improved renal function. 04/13 No overnight event or new complaints. Renal function improving. Urine culture not growing anything, however he was on antibiotics Review of Systems: denies headache/fever/chills/nausea/vomiting/chest or abdominal pain/co ugh/dyspnea/diarrhea. Otherwise see above. Constitutional Vitals: Vital Signs Temp Pulse Resp BP Pulse Ox 97 F 75 18 129/74 96 04/13/20 07:08 04/13/20 07:08 04/13/20 07:08 04/13/20 07:08 04/13/20 07:08 Period Temp Pulse Resp BP Sys/Koo Pulse Ox Last 24 Hr 97 F-98.8 F 70-83 16-20 114-138/66-74 93-96 Intake and Output 04/12/20 04/13/20 04/13/20 21:59 05:59 13:59 Intake Total 1534.5455 1000 Output Total 525 375 150 Balance 1009.5455 625 -150 Weight 109.543 kg Intake & Output: Intake & Output 04/12/20 04/13/2004/13/21 21:59 05:59 13:59 Intake Total 1534.5455 1000 Output Total 525 375 150 Balance 1009.5455 625 -150 Weight 109.543 kg Intake: IV 254.5455 1000 Sodium Chloride 0.9% 1,000 ml @ 1000 100 mls/hr IV .Q10H [facility] Rx#: [id number] Potassium Phosphate 20 Meq In 254.5455 Dextrose 5% in Water 250 ml @ 127.273 mls/hr IV ONCE ONE Rx#: [id number] Oral 1280 Output: Void Amount 525 375 150 Other: Meal Dinner Percent of Meal Consumed 100% Feeding Ability Assist with Tray Set Up Urine Appearance Clear Clear Clear Urine Color Bright Yellow Bright Yellow Bright Yellow Urine Odor Normal Exam: General: Alert, Awake, No acute Distress, obese Eyes/N/T: EOMI, Head/Neck: neck supple, CV: irreg irreg, No murmurs, Pulm: Clear b/l, no wheezing/rhonchi/rales Abd: soft, nontender, +BS x4 Ext: no clubbing/cyanosis, 1-2+ chronic b/l LE edema improved Neuro: Alert, no focal deficits, moves all extremities, Skin: warm/dry OBJ DATA Labs CBC & Chem 7: 04/12/20 05:24 04/13/20 05:16 Labs: Abnormal Lab Results 04/13/20 04/12/20 04/12/20 05:16 15:58 05:24 RBC Hgb Hct POC Hct 35 L MCHC MPV Lymph % (Auto) [place] % (Auto) Lymph # (Auto) [place] # (Auto) Seg Neutrophils % Lymphocytes % POC Sodium 130 L Sodium 131 L Potassium POC Chloride 92 L Chloride 94 L Anion Gap POC BUN 42 H BUN 37 H Creatinine 1.5 H POC Creatinine 2.0 H Glucose POC Glucose 123 H Uric Acid 8.3 H 8.9 H Calcium 8.4 L POC WB Ioniz Calcium 1.11 L Phosphorus 2.4 L Magnesium Lactate Dehydrogenase 332 H NT-Pro-B Natriuret Pep Total Protein Albumin Triglycerides 168 H Procalcitonin 0.18 H Urine Protein Urine Ketones Urine Nitrate Urine Urobilinogen Ur Leukocyte Esterase Urine WBC Hyaline Casts Urine Mucus 04/12/20 04/12/20 04/11/20 05:24 05:24 17:30 RBC 3.73 L Hgb 12.4 L Hct 34.6 L POC Hct MCHC MPV Lymph % (Auto) [place] % (Auto) Lymph # (Auto) [place] # (Auto) Seg Neutrophils % 85 H Lymphocytes % 8 L POC Sodium Sodium 129 L Potassium 2.7 L* POC Chloride Chloride 91 L Anion Gap POC BUN BUN 55 H Creatinine 2.2 H POC Creatinine Glucose POC Glucose Uric Acid 10.7 H Calcium 8.2 L POC WB Ioniz Calcium Phosphorus 2.2 L Magnesium 2.9 H Lactate Dehydrogenase 255 H NT-Pro-B Natriuret Pep Total Protein 5.6 L Albumin 3.1 L Triglycerides 211 H Procalcitonin Urine Protein 30 A Urine Ketones 5 A Urine Nitrate Color interference A Urine Urobilinogen 4.0 A Ur Leukocyte Esterase 250 A Urine WBC > 182 H Hyaline Casts 19 H Urine Mucus Few A 04/11/20 04/11/20 15:53 15:53 RBC 4.30 L Hgb Hct 39.3 L POC Hct MCHC 37.2 H MPV 11.1 H Lymph % (Auto) 14.3 L [place] % (Auto) 13.0 H Lymph # (Auto) 1.30 L [place] # (Auto) 1.18 H Seg Neutrophils % Lymphocytes % POC Sodium Sodium 128 L Potassium 2.5 L* POC Chloride Chloride 80 L Anion Gap 21.0 H POC BUN BUN 72 H Creatinine 2.8 H POC Creatinine Glucose 138 H POC Glucose Uric Acid Calcium POC WB Ioniz Calcium Phosphorus Magnesium 3.2 H Lactate Dehydrogenase NT-Pro-B Natriuret Pep 5576.0 H Total Protein Albumin Triglycerides Procalcitonin Urine Protein Urine Ketones Urine Nitrate Urine Urobilinogen Ur Leukocyte Esterase Urine WBC Hyaline Casts Urine Mucus Meds: Medications Acetaminophen (Acetaminophen 325 Mg Tablet) 650 mg PO Q6HP PRN PRN Reason: PAIN/FEVER > 101 Albuterol/Ipratropium (Ipratropium/Albuterol 3 Ml Ampul.Neb) 3 ml NEB Q4HP PRN PRN Reason: Shortness Of Breath Apixaban (Apixaban 5 Mg Tablet) 2.5 mg PO BID [facility] Last Admin: 04/12/20 21:29 Dose: 2.5 mg Documented by: Atenolol (Atenolol 25 Mg Tablet) 25 mg PO QDAY [facility] Last Admin: 04/12/20 08:41 Dose: 25 mg Documented by: Docusate Sodium (Docusate Sodium 100 Mg Capsule) 100 mg PO BID [facility] Last Admin: 04/12/20 21:30 Dose: 100 mg Documented by: Potassium Chloride 40 meq/ (Dextrose) 520 mls @ 130 mls/hr IV UD PRN PRN Reason: Potassium < 3 Last Infusion: 04/12/20 13:27 Dose: Infused Documented by: Magnesium Sulfate (Magnesium Sulfate) 2 gm in 50 mls @ 50 mls/hr IV UD PRN PRN Reason: Magnesium </= 1.6 Sodium Chloride (Sodium Chloride 0.9%) 1,000 mls @ 100 mls/hr IV .Q10H [facility] Last Admin: 04/13/20 02:19 Dose: 100 mls/hr Documented by: Ceftriaxone Sodium 2 gm/ (Dextrose) 50 mls @ 100 mls/hr IV Q24H [facility]; Protocol Last Infusion: 04/12/20 10:45 Dose: Infused Documented by: Methylprednisolone 4 (Mg Tablet) 1 mg PO [facility] Last Admin: 04/12/20 09:47 Dose: 1 mg Documented by: Ondansetron HCl (Ondansetron 4 Mg/2 Ml Vial) 4 mg IV Q4HP PRN PRN Reason: Nausea And Vomiting Pantoprazole Sodium (Pantoprazole 40 Mg Packet) 40 mg PO [facility] Last Admin: 04/13/20 07:06 Dose: 40 mg Documented by: Febuxostat [Uloric] (40 Mg Tablet) 1 dose PO QDAY [facility] Last Admin: 04/12/20 09:47 Dose: Not Given Documented by: Polyethylene Glycol (Polyethylene Glycol 3350 17 Gm Packet) 17 gm PO DAILYP PRN PRN Reason: Constipation Last Admin: 04/13/20 00:49 Dose: 17 gm Documented by: Potassium Chloride (Potassium Chloride 20 Meq Tablet) 40 meq PO UD PRN PRN Reason: Potssium is 3-3.5 Potassium Chloride (Potassium Chloride 20 Meq Tablet) 40 meq PO UD PRN PRN Reason: Potassium < 3 Last Admin: 04/12/20 08:41 Dose: 40 meq Documented by: Senna (Sennosides 1 Tablet) 2 tab PO DAILYP PRN PRN Reason: Constipation Simvastatin (Simvastatin 10 Mg Tablet) 10 mg PO QHS [facility] Last Admin: 04/12/20 21:30 Dose: 10 mg Documented by: Sodium Chloride (0.9 % Sodium Chloride 10 Ml Syringe) 10 ml IV Q8 [facility] Last Admin: 04/13/20 05:43 Dose: Not Given Documented by: Spironolactone (Spironolactone 25 Mg Tablet) 25 mg PO BIDD [facility] Last Admin: 04/12/20 15:34 Dose: 25 mg Documented by: Tiotropium [place] (Tiotropium [place] 18 Mcg Inhalant) 18 mcg INH QDAY [facility] Last Admin: 04/12/20 09:48 Dose: Not Given Documented by: A/P Narrative A/P Narrative: A: *UTI: *Sepsis: w/elevated lactate. 2/2 above *WILLIAM unkown baseline: 2/2 above + volume depletion + ?bactrim -improving *Volume depletion: improving *Hyponatremia/hypokalemia (has been mildly hyponatremic on old labs): -hypermag, is on supp daily at home *Generalized weakness/deconditioning: improving *HTN/HLD: *COPD (typically uses 2L@night, but stopped on own 1-month ago): -states he is on methylprednisolone for copd *Chronic Afib: On Eliquis and atenolol *Obesity: *GERD: *Alcohol use 4-6 drinks/day but cut back this month to 3: P: -Rocephin, pending UC/BC -IVF -Monitor renal function and urine output -Monitor electrolytes and replace -Continue home Eliquis/BB -Hold home ACEI/Lasix for renal fxn -cont home methylprednisolone -compression wraps to legs -PT/OT -ciwa monitor -ppx: Eliquis/home PPI DNR Time Spent With Patient Time: Total time spent is greater than 50% in coordination of care (as documented) at patient's floor/unit and/or counseling patient: QUALITY Stroke Symptom Onset Unknown: No VTE Deep Vein Thrombosis/Pulmonary Embolism Present on Admission: No
--- NOTE | 2020-04-13 07:36 | Nephrology Progress Note ---
SUBJECTIVE Subjective Patient information: Note initiated : 04/13/20 at 7:34 am Service Date, if different from initiated Date: [] Patient: Isaac Conde 85 y/o M admitted on 04/11/20 for Weak, cough. Chief Complaint: [weakness and malaise] 85-year-old gentleman with CKD 3, presumed CHF, ongoing daily alcohol intake in the form of beer. Admitted with acute on chronic renal failure, hyponatremia and hypokalemia, and a mild elevation in his lactic acid Pending today her renal ultrasound and an echocardiogram JANEL inhibitor and loop diuretic have been discontinued He was volume resuscitated with 2 L of saline He was started on Aldactone and atenolol Laboratory Tests 04/13/20 05:16 Sodium 131 L Potassium 3.3 Chloride 94 L Carbon Dioxide 28 Anion Gap 9.0 BUN 37 H Creatinine 1.5 H GFR Calculation 42 Glucose 102 Uric Acid 8.3 H Calcium 8.4 L Phosphorus 2.4 L Magnesium 2.5 Total Bilirubin 0.5 AST 36 ALT 21 Alkaline Phosphatase 86 Lactate Dehydrogenase 332 H Total Protein 6.4 Albumin 3.3 Serum creatinine Renal U/S: The right kidney measures 4.9 x 5.3 x 10.0 cm and the left measures 5.7 x 6.1 x 10.3 cm. Cortex in the right kidney measures 1.1 cm in thickness on the left measures up to 1.4 cm. The cortex is slightly echogenic bilaterally, compared to the adjacent liver and spleen. There is no evidence of a mass, cyst, calculus or hydronephrosis. Doppler shows flow of urine through both ureters into the bladder. In the posterior pararenal space, behind the right kidney there is a hypoechoic band of fluid which measures up to 9 mm in thickness. The patient had urinated immediately prior to the exam. He was unable urinate again, at the end of the ultrasound study. There is 172 cc of urine within the bladder. No abnormality is seen within the bladder. IMPRESSION: Mild thinning of the renal cortex of both kidneys with slightly echogenic renal parenchyma due to chronic medical renal disease. Functioning kidneys with urine output bilaterally Very small fluid collection in the right posterior pararenal space Interpreted and Authenticated by: Darron Gimenez 04/13/20 Echo results pending: Constitutional Vitals: Vital Signs Temp Pulse Resp BP Pulse Ox 36.1 C 75 18 129/74 96 04/13/20 07:08 04/13/20 07:08 04/13/20 07:08 04/13/20 07:08 04/13/20 07:08 Period Temp Pulse Resp BP Sys/Koo Pulse Ox Last 24 Hr 36.1 C-37.1 C 70-83 16-20 114-138/66-74 93-96 Intake and Output 04/12/20 04/13/20 04/13/20 21:59 05:59 13:59 Intake Total 1534.5455 1000 Output Total 525 375 150 Balance 1009.5455 625 -150 Weight 109.543 kg Intake & Output: Intake & Output 04/12/20 04/13/20 04/13/20 21:59 05:59 13:59 Intake Total 1534.5455 1000 Output Total 525 375 150 Balance 1009.5455 625 -150 Weight 109.543 kg Intake: IV 254.5455 1000 Sodium Chloride 0.9% 1,000 ml @ 1000 100 mls/hr IV .Q10H [facility] Rx#: [id number] Potassium Phosphate 20 Meq In 254.5455 Dextrose 5% in Water 250 ml @ 127.273 mls/hr IV ONCE ONE Rx#: [id number] Oral 1280 Output: Void Amount 525 375 150 Other: Meal Dinner Percent of Meal Consumed 100% Feeding Ability Assist with Tray Set Up Urine Appearance Clear Clear Clear Urine Color Bright Yellow Bright Yellow Bright Yellow Urine Odor Normal General appearance: no acute distress and obese Exam: Berny complexion Head Head exam: Present normocephalic Eye Eye exam: Present EOMI and PERRL; Absent nystagmus and scleral icterus ENT ENT exam: Present mucous membranes moist Neck Neck exam: Present full ROM and normal inspection; Absent meningismus Respiratory Respiratory exam: Present CTAB, prolonged expiratory phase and rhonchi Cardiovascular Cardiovascular exam: Present normal rate and rhythm, +S1 and +S2; Absent JVD and +S3 GI/Abdominal GI/Abdominal exam: Present normal bowel sounds and soft Additional comments: Central obesity Extremities Exam Extremities exam: Present pedal edema Additional comments: Venous stasis changes and peripheral edema (pitting 2+ kota ateral) Neurological Exam Neurological exam: Present alert, CN II-XII intact and oriented X3 Additional comments: No signs or symptoms of impending DTs Psychiatric Psychiatric exam: Present normal mood Skin Skin exam: Present dry A/P Assessment and plan (1) Acute renal failure (ARF): Assessment and plan: Acute renal failure (ARF): Assessment and plan: D/Dx 1. Acute prerenal azotemia Evidenced by low FeNa Likely etiology is dehydration from look diuretics and decreased po intake in combination with ACEi and possible underlying CHF If this is the case should improve within 72 hours after holding fosinopril and lasix Hydrate Review U/A 2. Recent Bactrim therapy requires examination for signs and sx of Acute Interstitial Nephritis. Urine eos Check peripheral smear for eos ESR and CRP 3. Obstruction Renal U/S 4. GN Nothing to date to suggest this Review urine studies 5. ATN Could have some early ATN but urine indicies currently favor prerenal insult Look for casts in urine Low CPK makes rhabdomyolysis unlikely Status: Acute Comment: Even though there are no eosinophils, the lg number of WBC and no bacteria supports interstitial nephritis > UTI/sepsis Stop ABx if cultures negative at 48 hours Qualifiers: Acute renal failure type: unspecified Qualified Code(s): N17.9 - Acute kidney failure, unspecified (2) Hypokalemia: Assessment and plan: Hypokalemia: Assessment and plan: The combination of low Na and K strongly suggests diuretic related plus excess free water and low K intake from excessive BEER intake If he has CHF, sharad levels are usually high and contribute to the hyponatremia He must have a profound deficiency in K at baseline as Bactrim, ACEi and ARF all tend to raise the serum potassium. Check for GI K losses with diarrhea Status: Acute Comment: Replace K po/IV including KPO4 for phosphorous replacement Aldactone started for low K and CHF (3) Hyponatremia: Assessment and plan: Hyponatremia: Assessment and plan: As above: loop diuretics and excess free H20 (Beer) tend to drive Na down, as dose low grade elevation of Ang II/Sharad system with CHF. NS IV and free water restriction upon dischaarge Needs to quit drinking beer Status: Acute Comment: PO fluid restriction Use hyperosmolar TF (Nephro) in place of H2O to swallow Rx Stay on sodium restricted diet due to edema and probable CHF (4) Elevated brain natriuretic peptide (BNP) level: Status: Acute Comment: Sodium restrict diet Add spironolactone today, furosemide BID tomorrow Cardiac echo tomorrow Treat CHF with usual Tx of ACEi/ARB, loop diuretic and possibly B-benjie or aldosterone antagonist (5) History of CHF (congestive heart failure): Assessment and plan: As above Echocardiogrm Status: Chronic Comment: Presumptive, based on patient's description of why he was put on diuretics several years ago with "some fluid around my heart and lungs" and given by a hl7 interface developer. (6) Atrial fibrillation, chronic: Status: Chronic Comment: NOAC and B-benjie Narrative A/P Narrative: (1) Acute renal failure (ARF): Assessment and plan: Acute renal failure (ARF): Assessment and plan: D/Dx 1. Acute prerenal azotemia Evidenced by low FeNa Likely etiology is dehydration from look diuretics and decreased po intake in combination with ACEi and possible underlying CHF If this is the case should improve within 72 hours after holding fosinopril and lasix Hydrate Review U/A 2. Recent Bactrim therapy requires examination for signs and sx of Acute Interstitial Nephritis. Urine eos Check peripheral smear for eos ESR and CRP 3. Obstruction Renal U/S 4. GN Nothing to date to suggest this Review urine studies 5. ATN Could have some early ATN but urine indicies currently favor prerenal insult Look for casts in urine Low CPK makes rhabdomyolysis unlikely (2) Hypokalemia: Assessment and plan: Hypokalemia: Assessment and plan: The combination of low Na and K strongly suggests diuretic related plus excess free water and low K intake from excessive BEER intake If he has CHF, sharad levels are usually high and contribute to the hyponatremia He must have a profound deficiency in K at baseline as Bactrim, ACEi and ARF all tend to raise the serum potassium. Check for GI K losses with diarrhea (3) Hyponatremia: Assessment and plan: Hyponatremia: Assessment and plan: As above: loop diuretics and excess free H20 (Beer) tend to drive Na down, as dose low grade elevation of Ang II/Sharad system with CHF. NS IV and free water restriction upon dischaarge Needs to quit drinking beer (4) Elevated brain natriuretic peptide (BNP) level: (5) History of CHF (congestive heart failure): Assessment and plan: As above Echocardiogrm (6) Atrial fibrillation, chronic: Time Spent With Patient Time: Total time spent is greater than 50% in coordination of care (as documented) at patient's floor/unit and/or counseling patient: Total time spent with greater than 50% in coordination of care (as documented) at patient's floor/unit and/or counseling patient:: Greater than 35 minutes
[2020-04-13] MEDS ORDERED: POTASSIUM PHOSPHATE 20 MEQ in DEXTROSE 5% IN WATER 250 ML IV ONE (07:42)
[2020-04-13] MEDS: TIOTROPIUM BROMIDE 18 MCG INHALANT INH SCH (08:48)
[2020-04-13] MEDS: cefTRIAXone 2 GM in DEXTROSE 5% IN WATER 50 ML IV SCH (08:54)
[2020-04-13] MEDS: APIXABAN 5 MG TABLET PO SCH ×2 (08:55→20:41)
[2020-04-13] MEDS: DOCUSATE SODIUM 100 MG CAPSULE PO SCH ×2 (08:55→20:41)
[2020-04-13] MEDS: SPIRONOLACTONE 25 MG TABLET PO SCH ×2 (08:55→15:56)
[2020-04-13] MEDS: ATENOLOL 25 MG TABLET PO SCH (08:55)
--- NOTE | 2020-04-13 09:02 | Ultrasound Report ---
History: Acute renal failure superimposed upon stage III chronic kidney disease FINDINGS: The right kidney measures 4.9 x 5.3 x 10.0 cm and the left measures 5.7 x 6.1 x 10.3 cm. Cortex in the right kidney measures 1.1 cm in thickness on the left measures up to 1.4 cm. The cortex is slightly echogenic bilaterally, compared to the adjacent liver and spleen. There is no evidence of a mass, cyst, calculus or hydronephrosis. Doppler shows flow of urine through both ureters into the bladder. In the posterior pararenal space, behind the right kidney there is a hypoechoic band of fluid which measures up to 9 mm in thickness. The patient had urinated immediately prior to the exam. He was unable urinate again, at the end of the ultrasound study. There is 172 cc of urine within the bladder. No abnormality is seen within the bladder. IMPRESSION: Mild thinning of the renal cortex of both kidneys with slightly echogenic renal parenchyma due to chronic medical renal disease. Functioning kidneys with urine output bilaterally Very small fluid collection in the right posterior pararenal space Interpreted and Authenticated by: Darron Gimenez 04/13/20
--- NOTE | 2020-04-13 10:09 | Discharge Summary ---
Discharge Provider Provider Patient information: Note initiated : 04/13/20 at 10:06 am Service Date, if different from initiated Date: [] Patient: Isaac Conde a 85 y/o M admitted on 04/11/20 for Weak, cough. Chief Complaint: [] Date of admission: 04/11/20 18:48 Primary care physician: Fitz Deleon Consults: 04/11/20 Consult to Physician [CONS] Stat Comment: Consulting Provider: Isaac Rosas Reason For Exam: Physician to Consult 04/12/20 07:44 Consult to Physician [CONS] Routine Comment: Consulting Provider: Bashir Garcia Reason For Exam: Physician to Consult Discharge Meds Discharge Medications Home Medications Eliquis 2.5 mg PO BID 04/11/20 [History Confirmed 04/11/20 Last Taken 04/10/20 19:00] Spiriva with HandiHaler 1 cap INHALATION QDAY 04/11/20 [History Confirmed 04/11/20 Last Taken 04/10/20 09:00] atenolol 25 mg PO QDAY 04/11/20 [History Confirmed 04/11/20 Last Taken 04/10/20 19:00] febuxostat [Uloric] 40 mg PO QDAY 04/11/20 [History Confirmed 04/11/20 Last Taken 04/11/20 09:00] magnesium 250 mg PO QDAY 04/11/20 [History Confirmed 04/11/20 Last Taken 04/10/20 09:00] methylprednisolone 4 mg PO QAM 04/11/20 [History Confirmed 04/11/20 Last Taken 04/11/20 09:00] omeprazole 80 mg PO DAILY 04/11/20 [History Confirmed 04/11/20 Last Taken 04/11/20 09:00] simvastatin 10 mg PO QHS 04/11/20 [History Confirmed 04/11/20 Last Taken 04/10/20 19:00] vitamins A,C,V-ygsn-vogoxg 2 tab PO BID 04/11/20 [History Confirmed 04/11/20 Last Taken 04/10/20 19:00] COURSE Hospital Course Hospital course: History of present illness: Mr. Conde is a 85 year old M Presents the ED with generalized aches and pains and feeling very weak and fatigued. He states that he started feeling crummy about a week ago. Was diagnosed with u rinary tract infection and has had dysuria urgency frequency. He finished Bactrim this morning. Because of the worsening of his weakness generalized aches and pains that he came in the ED. All signs are stable. However he did have a hyponatremia and hypokalemia. He had acute kidney injury and an elevated lactate 3.5. Urinalysis is pending. He was started on IV antibiotics and given IV fluid boluses. Case discussed with Dr. Rosas who recommended checking urine eosinophils as since has been on Bactrim. Also describes decreased oral intake the past few days. Denies fever chills. Denies chest pain/ coughing. No diarrhea. 04/12 Patient feeling better today no overnight event or new complaints. Low potassium. But improved renal function. 04/13 No overnight event or new complaints. Renal function improving. Urine culture negative. A: *WILLIAM unkown baseline: 03/17 volume depletion/meds + ?bactrim -improving *?UTI: recently treated with bactrim *Sepsis vs hypovolemia/renal insult: w/elevated lactate *Volume depletion: improving *Hyponatremia/hypokalemia (has been mildly hyponatremic on old labs): -hypermag, is on supp daily at home *Generalized weakness/deconditioning: improving *HTN/HLD: *COPD (typically uses 2L@night, but stopped on own 1-month ago): -states he is on methylprednisolone for copd *Chronic Afib: On Eliquis and atenolol *Obesity: *GERD: *Alcohol use 4-6 drinks/day but cut back this month to 3: Discharge diagnosis: acute kidney injury volume depletion ?uti/sepis, electrolyte abnormalities Secondary discharge diagnosis: Generalized weakness deconditioning COPD chronic A. fib obesity GERD alcohol use Time Spent with Patient Time attestation: Total time spent providing and/or coordinating discharge services: Time spent: Greater than 30 minutes EXAM Constitutional Vitals: Temp Pulse Resp BP Pulse Ox 97 F 75 18 129/74 96 04/13/20 07:08 04/13/20 07:08 04/13/20 07:08 04/13/20 07:08 04/13/20 07:08 Discharge Data Data Completed and Pending Labs on day of discharge: Labs from last 24 hours 04/13/20 04/12/20 05:16 15:58 POC Hct 35 L POC Sodium 130 L Sodium 131 L POC Potassium 3.6 Potassium 3.3 POC Chloride 92 L Chloride 94 L Carbon Dioxide 28 POC Total CO2 29 Anion Gap 9.0 POC BUN 42 H BUN 37 H Creatinine 1.5 H POC Creatinine 2.0 H GFR Calculation 42 Glucose 102 POC Glucose 123 H Uric Acid 8.3 H 8.9 H Calcium 8.4 L POC WB Ioniz Calcium 1.11 L Phosphorus 2.4 L Magnesium 2.5 Total Bilirubin 0.5 Direct Bilirubin 0.2 GGT 51 AST 36 ALT 21 Alkaline Phosphatase 86 Lactate Dehydrogenase 332 H Total Protein 6.4 Albumin 3.3 Globulin 3.1 Albumin/Globulin Ratio 1.1 Triglycerides 168 H Preliminary micro results at discharge 04/11/20 16:23 Blood Culture - Preliminary Blood 04/11/20 16:15 Blood Culture - Preliminary Blood 04/11/20 16:23 Urine Culture - Preliminary Urine - Clean Void Mid-Stream Discharge Plan Patient/Caregiver Discharge Instructions Activity: increase activity as tolerated Diet: Regular Diet Activity Restrictions/Additional Instructions: Follow up at wound healing center for skin tears to left arm within 1 week- they need ongoing treatment, monitoring Prescriptions: Continued simvastatin 10 mg Tablet 10 mg PO QHS RF: 0 atenolol 25 mg Tablet 25 mg PO QDAY RF: 0 Eliquis 2.5 mg Tablet 2.5 mg PO BID RF: 0 methylprednisolone 4 mg Tablet 4 mg PO QAM RF: 0 omeprazole 40 mg Capsule,Delayed Release(Dr/Ec) 80 mg PO DAILY RF: 0 magnesium 250 mg Tablet 250 mg PO QDAY RF: 0 Spiriva with HandiHaler 18 mcg Capsule, W/Inhalation Device 1 cap INHALATION QDAY RF: 0 febuxostat [Uloric] 40 mg Tablet 40 mg PO QDAY RF: 0 vitamins A,C,J-kgle-aphudv 7,160 unit- 113 mg-100 unit Tablet 2 tab PO BID RF: 0 Discontinued fosinopril 40 mg Tablet 40 mg PO QDAY RF: 0 furosemide 40 mg Tablet 40 mg PO BID RF: 0 Follow Up Plan Follow up with: Isaac Rosas MD [Physician] - Fitz Deleon MD [Primary Care Provider] - Patient Disposition: Home, Self-Care Prognosis: Fair Overall status at discharge: patient is progressing back to baseline QUALITY VTE Deep Vein Thrombosis/Pulmonary Embolism Present on Admission: No
[2020-04-13] MEDS: SIMVASTATIN 10 MG TABLET PO SCH (20:41)
[2020-04-14] MEDS: ACETAMINOPHEN 325 MG TABLET PO PRN (00:11)
[2020-04-14] MEDS: LORazepam 2 MG/ML VIAL IV PRN (02:13)
[2020-04-14] MEDS: 0.9 % SODIUM CHLORIDE 10 ML SYRINGE IV SCH ×4 (02:15→19:40)
[2020-04-14] MEDS ORDERED: LORazepam 2 MG/ML VIAL ONE (02:20)
[2020-04-14 07:12] LABS: Albumin 3.3 gm/dL (3.2-5.2); Blood Urea Nitrogen 28 mg/dL (8-23); Calcium 8.5 mg/dL (8.6-10.4); Carbon Dioxide 28 mmol/L (22-30); Chloride 101 mmol/L (96-108); Glomerular Filtration Rate 50; Glucose 106 mg/dL (70-105); Phosphorous 3.3 mg/dL (2.5-4.5)
--- NOTE | 2020-04-14 07:36 | Internal Med Progress Note ---
SUBJECTIVE Subjective Patient information: Note initiated : 04/14/20 at 7:32 am Service Date, if different from initiated Date: [] Patient: Isaac Conde 85 y/o M admitted on 04/11/20 for Weak, cough. Chief Complaint: [] Interval history: History of present illness: Mr. Conde is a 85 year old M Presents the ED with generalized aches and pains and feeling very weak and fatigued. He states that he started feeling crummy about a week ago. Was diagnosed with urinary tract infection and has had dysuria urgency frequency. He finished Bactrim this morning. Because of the worsening of his weakness generalized aches and pains that he came in the ED. All signs are stable. However he did have a hyponatremia and hypokalemia. He had acute kidney injury and an elevated lactate 3.5. Urinalysis is pending. He was started on IV antibiotics and given IV fluid boluses. Case discussed with Dr. Rosas who recommended checking urine eosinophils as since has been on Bactrim. Also describes decreased oral intake the past few days. Denies fever chills. Denies chest pain/ coughing. No diarrhea. 04/12 Patient feeling better today no overnight event or new complaints. Low potassium. But improved renal function. 04/13 No overnight event or new complaints. Renal function improving. Urine culture not growing anything, however he was on antibiotics 04/14 He went into alcohol withdrawal last night. Sedated this morning from Ativan. Unable to gather review of systems given sedation Constitutional Vitals: Vital Signs Temp Pulse Resp BP Pulse Ox 97.0 F 88 16 120/65 98 04/14/20 03:11 04/14/20 03:11 04/14/20 03:11 04/14/20 03:11 04/14/20 03:11 Period Temp Pulse Resp BP Sys/Koo Pulse Ox Last 24 Hr 97.0 F-98.6 F 79-96 16-20 120-143/62-78 95-99 Intake and Output 04/13/20 04/14/20 04/14/20 21:59 05:59 13:59 Intake Total 1824.5455 30 Output Total 325 175 Balance 1499.5455 -145 Weight 108.136 kg Intake & Output: Intake & Output 04/13/20 04/14/20 04/14/20 21:59 05:59 13:59 Intake Total 1824.5455 30 Output Total 325 175 Balance 1499.5455 -145 Weight 108.136 kg Intake: IV 1304.5455 Sodium Chloride 0.9% 1,000 ml @ 1000 100 mls/hr IV .Q10H [facility] Rx#: [id number] Potassium Phosphate 20 Meq In 254.5455 Dextrose 5% in Water 250 ml @ 127.273 mls/hr IV ONCE ONE Rx#: [id number] Rocephin 2 gm In Dextrose 5% in 50 Water 50 ml @ 100 mls/hr IV Q24H [facility] Rx#:[id number] Oral 520 30 Output: Void Amount 325 175 Other: Meal Dinner Percent of Meal Consumed 80 Feeding Ability Independent Urine Appearance Clear Clear Urine Color Pale Bright Yellow Urine Odor Normal Stool Size Small # Voids 1 1 # Bowel Movements 1 Exam: General: sleeping No acute Distress, obese Eyes/N/T: EOMI, Head/Neck: neck supple, CV: irreg irreg, No murmurs, Pulm: Clear b/l, no wheezing/rhonchi/rales Abd: soft, nontender, +BS x4 Ext: no clubbing/cyanosis, 1-2+ chronic b/l LE edema improved Neuro: sedated, responds to touch, spontaneously moves all extremities, Skin: warm/dry OBJ DATA Labs CBC & Chem 7: 04/12/20 05:24 04/14/20 05:12 Labs: Abnormal Lab Results 04/14/20 04/13/20 04/12/20 05:12 05:16 15:58 RBC Hgb Hct POC Hct 35 L MCHC MPV Lymph % (Auto) [place] % (Auto) Lymph # (Auto) [place] # (Auto) Seg Neutrophils % Lymphocytes % POC Sodium 130 L Sodium 131 L Potassium POC Chloride 92 L Chloride 94 L Anion Gap 7.0 L POC BUN 42 H BUN 28 H 37 H Creatinine 1.3 H 1.5 H POC Creatinine 2.0 H Glucose 106 H POC Glucose 123 H Uric Acid 8.3 H 8.9 H Calcium 8.5 L 8.4 L POC WB Ioniz Calcium 1.11 L Phosphorus 2.4 L Magnesium Lactate Dehydrogenase 332 H NT-Pro-B Natriuret Pep 6381.0 H Total Protein Albumin Triglycerides 168 H Procalcitonin Urine Protein Urine Ketones Urine Nitrate Urine Urobilinogen Ur Leukocyte Esterase Urine WBC Hyaline Casts Urine Mucus 04/12/20 04/12/20 04/12/20 05:24 05:24 05:24 RBC 3.73 L Hgb 12.4 L Hct 34.6 L POC Hct MCHC MPV Lymph % (Auto) [place] % (Auto) Lymph # (Auto) [place] # (Auto) Seg Neutrophils % 85 H Lymphocytes % 8 L POC Sodium Sodium 129 L Potassium 2.7 L* POC Chloride Chloride 91 L Anion Gap POC BUN BUN 55 H Creatinine 2.2 H POC Creatinine Glucose POC Glucose Uric Acid 10.7 H Calcium 8.2 L POC WB Ioniz Calcium Phosphorus 2.2 L Magnesium 2.9 H Lactate Dehydrogenase 255 H NT-Pro-B Natriuret Pep Total Protein 5.6 L Albumin 3.1 L Triglycerides 211 H Procalcitonin 0.18 H Urine Protein Urine Ketones Urine Nitrate Urine Urobilinogen Ur Leukocyte Esterase Urine WBC Hyaline Casts Urine Mucus 04/11/20 04/11/20 04/11/20 17:30 15:53 15:53 RBC 4.30 L Hgb Hct 39.3 L POC Hct MCHC 37.2 H MPV 11.1 H Lymph % (Auto) 14.3 L [place] % (Auto) 13.0 H Lymph # (Auto) 1.30 L [place] # (Auto) 1.18 H Seg Neutrophils % Lymphocytes % POC Sodium Sodium 128 L Potassium 2.5 L* POC Chloride Chloride 80 L Anion Gap 21.0 H POC BUN BUN 72 H Creatinine 2.8 H POC Creatinine Glucose 138 H POC Glucose Uric Acid Calcium POC WB Ioniz Calcium Phosphorus Magnesium 3.2 H Lactate Dehydrogenase NT-Pro-B Natriuret Pep 5576.0 H Total Protein Albumin Triglycerides Procalcitonin Urine Protein 30 A Urine Ketones 5 A Urine Nitrate Color interference A Urine Urobilinogen 4.0 A Ur Leukocyte Esterase 250 A Urine WBC > 182 H Hyaline Casts 19 H Urine Mucus Few A Meds: Medications Acetaminophen (Acetaminophen 325 Mg Tablet) 650 mg PO Q6HP PRN PRN Reason: PAIN/FEVER > 101 Last Admin: 04/14/20 00:11 Dose: 650 mg Documented by: Albuterol/Ipratropium (Ipratropium/Albuterol 3 Ml Ampul.Neb) 3 ml NEB Q4HP PRN PRN Reason: Shortness Of Breath Apixaban (Apixaban 5 Mg Tablet) 2.5 mg PO BID [facility] Last Admin: 04/13/20 20:41 Dose: 2.5 mg Documented by: Atenolol (Atenolol 25 Mg Tablet) 25 mg PO QDAY [facility] Last Admin: 04/13/20 08:55 Dose: 25 mg Documented by: Docusate Sodium (Docusate Sodium 100 Mg Capsule) 100 mg PO BID [facility] Last Admin: 04/13/20 20:41 Dose: 100 mg Documented by: Potassium Chloride 40 meq/ (Dextrose) 520 mls @ 130 mls/hr IV UD PRN PRN Reason: Potassium < 3 Last Infusion: 04/12/20 13:27 Dose: Infused Documented by: Magnesium Sulfate (Magnesium Sulfate) 2 gm in 50 mls @ 50 mls/hr IV UD PRN PRN Reason: Magnesium </= 1.6 Lorazepam (Lorazepam 2 Mg/Ml Vial) 0 mg IV Q4HP PRN; Protocol PRN Reason: ANXIETY/SEDATION Last Admin: 04/14/20 02:13 Dose: 4 mg Documented by: Methylprednisolone 4 (Mg Tablet) 1 mg PO [facility] Last Admin: 04/13/20 10:24 Dose: 1 mg Documented by: Ondansetron HCl (Ondansetron 4 Mg/2 Ml Vial) 4 mg IV Q4HP PRN PRN Reason: Nausea And Vomiting Pantoprazole Sodium (Pantoprazole 40 Mg Packet) 40 mg PO [facility] Last Admin: 04/13/20 07:06 Dose: 40 mg Documented by: Febuxostat [Uloric] (40 Mg Tablet) 1 dose PO QDAY [facility] Last Admin: 04/13/20 08:48 Dose: Not Given Documented by: Polyethylene Glycol (Polyethylene Glycol 3350 17 Gm Packet) 17 gm PO DAILYP PRN PRN Reason: Constipation Last Admin: 04/13/20 11:09 Dose: 17 gm Documented by: Potassium Chloride (Potassium Chloride 20 Meq Tablet) 40 meq PO UD PRN PRN Reason: Potssium is 3-3.5 Last Admin: 04/13/20 11:55 Dose: 40 meq Documented by: Potassium Chloride (Potassium Chloride 20 Meq Tablet) 40 meq PO UD PRN PRN Reason: Potassium < 3 Last Admin: 04/12/20 08:41 Dose: 40 meq Documented by: Senna (Sennosides 1 Tablet) 2 tab PO DAILYP PRN PRN Reason: Constipation Simvastatin (Simvastatin 10 Mg Tablet) 10 mg PO QHS [facility] Last Admin: 04/13/20 20:41 Dose: 10 mg Documented by: Sodium Chloride (0.9 % Sodium Chloride 10 Ml Syringe) 10 ml IV Q8 [facility] Last Admin: 04/14/20 02:15 Dose: 10 ml Documented by: Spironolactone (Spironolactone 25 Mg Tablet) 25 mg PO BIDD [facility] Last Admin: 04/13/20 15:56 Dose: 25 mg Documented by: Tiotropium Olive (Tiotropium Olive 18 Mcg Inhalant) 18 mcg INH QDAY [facility] Last Admin: 04/13/20 08:48 Dose: Not Given Documented by: A/P Narrative A/P Narrative: A: *WILLIAM unkown baseline: 2/2 volume depletion/meds + ?bactrim + ?recent uti -improving *?UTI: recently treated with bactrim, UC negative *?Sepsis vs hypovolemia/renal insult: w/elevated lactate *Volume depletion: improving *Hyponatremia/hypokalemia (has been mildly hyponatremic on old labs): -hypermag, is on supp daily at home -improved *Alcohol disorder with Withdrawal: *Generalized weakness/deconditioning: improving *HTN/HLD: *COPD (typically uses 2L@night, but stopped on own 1-month ago): -states he is on methylprednisolone for copd *Chronic Afib: On Eliquis and atenolol *Obesity: *GERD: *Concern if pt able to care for self at home P: -CIWA, vitamins, prn benzo -UC/BC neg, will d/c abx -IVF d/c -Monitor renal function and urine output -Monitor electrolytes and replace -Continue home Eliquis/BB -Hold home ACEI/Lasix for renal fxn -cont home methylprednisolone -compression wraps to legs -PT/OT -CM for placement needs -ppx: Eliquis/home PPI DNR Time Spent With Patient Time: Total time spent is greater than 50% in coordination of care (as documented) at patient's floor/unit and/or counseling patient: QUALITY Stroke Symptom Onset Unknown: No VTE Deep Vein Thrombosis/Pulmonary Embolism Present on Admission: No
[2020-04-14] MEDS ORDERED: LEVOFLOXACIN 750 MG TABLET PO SCH (09:00)
[2020-04-14] MEDS: TIOTROPIUM BROMIDE 18 MCG INHALANT INH SCH (11:40)
[2020-04-14] MEDS: THIAMINE 100 MG in 0.9 % SODIUM CHLORIDE 50 ML IV SCH ×2 (12:00→14:49)
[2020-04-14] MEDS: PANTOPRAZOLE 40 MG PACKET PO SCH (13:46)
[2020-04-14] MEDS: SPIRONOLACTONE 25 MG TABLET PO SCH ×2 (13:46→16:35)
[2020-04-14] MEDS: APIXABAN 5 MG TABLET PO SCH ×2 (13:47→19:40)
[2020-04-14] MEDS: FOLIC ACID 1 MG TABLET PO SCH (13:47)
[2020-04-14] MEDS: DOCUSATE SODIUM 100 MG CAPSULE PO SCH ×2 (13:47→19:40)
[2020-04-14] MEDS: MULTIVIT,THER IRON,CA,FA & MIN 1 TABLET PO SCH (13:48)
[2020-04-14] MEDS: ATENOLOL 25 MG TABLET PO SCH (13:48)
--- NOTE | 2020-04-14 16:00 | Nephrology Progress Note ---
SUBJECTIVE Subjective Patient information: Note initiated : 04/14/20 at 3:57 pm Service Date, if different from initiated Date: [] Patient: Isaac Conde 85 y/o M admitted on 04/11/20 for Weak, cough. Chief Complaint: [weakness] Patient was admitted with acute on chronic renal failure, hyponatremia and hypokalemia along with hypophosphatemia in the setting of daily alcohol intake. He has responded to some volume expansion with normal saline, potassium and phosphorus replacement, and improvement in his serum creatinine over the past 4- days. Although he has no history of alcohol withdrawal syndromes, today he has been started on treatment for impending DTs./Alcohol withdrawal. This appears to have included a [facility] Laboratory Tests 04/14/20 05:12 Sodium 136 Potassium 3.6 Chloride 101 Carbon Dioxide 28 Anion Gap 7.0 L BUN 28 H Creatinine 1.3 H GFR Calculation 50 Glucose 106 H Calcium 8.5 L Phosphorus 3.3 Magnesium 2.4 NT-Pro-B Natriuret Pep 6381.0 H Albumin 3.3 Renal U/S 04/13/20: The right kidney measures 4.9 x 5.3 x 10.0 cm and the left measures 5.7 x 6.1 x 10.3 cm. Cortex in the right kidney measures 1.1 cm in thickness on the left measures up to 1.4 cm. The cortex is slightly echogenic bilaterally, compared to the adjacent liver and spleen. There is no evidence of a mass, cyst, calculus or hydronephrosis. Doppler shows flow of urine through both ureters into the bladder. In the posterior pararenal space, behind the right kidney there is a hypoechoic band of fluid which measures up to 9 mm in thickness. The patient had urinated immediately prior to the exam. He was unable urinate again, at the end of the ultrasound study. There is 172 cc of urine within the bladder. No abnormality is seen within the bladder. IMPRESSION: Mild thinning of the renal cortex of both kidneys with slightly echogenic renal parenchyma due to chronic medical renal disease. Functioning kidneys with urine output bilaterally Very small fluid collection in the right posterior pararenal space Constitutional Vitals: Vital Signs Temp Pulse Resp BP Pulse Ox 36.3 C 104 H 16 136/83 97 04/14/20 11:00 04/14/20 11:00 04/14/20 11:00 04/14/20 11:00 04/14/20 11:00 Period Temp Pulse Resp BP Sys/Koo Pulse Ox Last 24 Hr 36.0 C-36.8 C 78-104 16-20 120-136/62-83 95-100 Intake and Output 04/14/20 04/14/20 04/14/20 05:59 13:59 21:59 Intake Total 30 13 Output Total 175 176 100 Balance -145 -176 -87 Intake & Output: Intake & Output 04/14/20 04/14/20 04/14/20 05:59 13:59 21:59 Intake Total 30 13 Output Total 175 176 100 Balance -145 -176 -87 Intake: IV 13 Vitamin B1 100 mg In Sodium 13 Chloride 0.9% 50 ml @ 50 mls/hr IV DAILY [facility] Rx#:[id number] Oral 30 Output: Void Amount 175 175 100 # of times incontinent of urine 1 Other: Urine Appearance Clear Clear Urine Color Bright Yellow Dark Yellow # Voids 1 General appearance: obese Head Head exam: Present normocephalic Eye Eye exam: Present EOMI and PERRL; Absent nystagmus ENT ENT exam: Present mucous membranes moist Neck Neck exam: Present normal inspection Respiratory Respiratory exam: Present rhonchi Cardiovascular Cardiovascular exam: Present normal rate and rhythm, +S1 and +S2 GI/Abdominal GI/Abdominal exam: Present normal bowel sounds and soft Extremities Exam Extremities exam: Present pedal edema Neurological Exam Neurological exam: Present CN II-XII intact and oriented X3 Psychiatric Psychiatric exam: Present anxious A/P Assessment and plan (1) Acute renal failure (ARF): Assessment and plan: Acute renal failure (ARF): Assessment and plan: D/Dx 1. Acute prerenal azotemia Evidenced by low FeNa Likely etiology is dehydration from look diuretics and decreased po intake in combination with ACEi and possible underlying CHF If this is the case should improve within 72 hours after holding fosinopril and lasix Hydrate Review U/A 2. Recent Bactrim therapy requires examination for signs and sx of Acute Interstitial Nephritis. Urine eos Check peripheral smear for eos ESR and CRP 3. Obstruction Renal U/S 4. GN Nothing to date to suggest this Review urine studies 5. ATN Could have some early ATN but urine indicies currently favor prerenal insult Look for casts in urine Low CPK makes rhabdomyolysis unlikely Status: Acute Comment: Even though there are no eosinophils, the lg number of WBC and no bacteria supports interstitial nephritis > UTI/sepsis Stop ABx if cultures negative at 48 hours Qualifiers: Acute renal failure type: unspecified Qualified Code(s): N17.9 - Acute kidney failure, unspecified (2) Hypokalemia: Assessment and plan: Hypokalemia: Assessment and plan: The combination of low Na and K strongly suggests diuretic related plus excess free water and low K intake from excessive BEER intake If he has CHF, sharad levels are usually high and contribute to the hyponatremia He must have a profound deficiency in K at baseline as Bactrim, ACEi and ARF all tend to raise the serum potassium. Check for GI K losses with diarrhea Status: Acute Comment: Replace K po/IV including KPO4 for phosphorous replacement Aldactone started for low K and CHF (3) Hyponatremia: Assessment and plan: Hyponatremia: Assessment and plan: As above: loop diuretics and excess free H20 (Beer) tend to drive Na down, as dose low grade elevation of Ang II/Sharad system with CHF. NS IV and free water restriction upon dischaarge Needs to quit drinking beer in an ideal world...this is not going to happen Status: Acute Comment: PO fluid restriction Use hyperosmolar TF (Nephro) in place of H2O to swallow Rx Stay on sodium restricted diet due to edema and probable CHF (4) Elevated brain natriuretic peptide (BNP) level: Status: Acute Comment: Sodium restrict diet Add spironolactone today, (5) History of CHF (congestive heart failure): Assessment and plan: As above Echocardiogrm results pending Status: Chronic Comment: Presumptive, based on patient's description of why he was put on diuretics several years ago with "some fluid around my heart and lungs" and given by a buffing wheel raker. (6) Atrial fibrillation, chronic: Assessment and plan: Consider Holiday heart NOAC in an alcoholic is risky Status: Chronic Comment: NOAC and B-benjie Narrative A/P Narrative: Right now he is being managed under likely home conditions including beer drinking Time Spent With Patient Time: Total time spent is greater than 50% in coordination of care (as documented) at patient's floor/unit and/or counseling patient: Total time spent with greater than 50% in coordination of care (as documented) at patient's floor/unit and/or counseling patient:: 25 - 35 minutes
--- NOTE | 2020-04-14 17:14 | General Surgery Consult Note ---
HPI Data of Consult Consult date: 04/13/20 Requesting physician: Bashir Garcia Primary Care Provider: Fitz Deleon Consult Narrative Patient Information: Note initiated : 04/14/20 at 5:04 pm Service Date, if different from initiated Date: [] Patient: Isaac Conde 85 y/o M admitted on 04/11/20 for Weak, cough. Chief Complaint: [] Chief complaint: Alcohol intoxication, UTI, Skin tears LEFT UE. Reason for consult: Wound care / management and follow up cc:: CC:I saw this patient on Med/Surg floor today with Constanza BENAVIDES, In patient wound care nurse. Reviewed EHR notes and input from Dr. Garcia, Hospitalist Physician and Dr. Rosas Investment Specialist. PFSH PFSH All Active Problems CKD (chronic kidney disease) stage 3, GFR 30-59 ml/min (Acute) Sepsis (Acute) Hypokalemia (Acute) Acute renal failure (ARF) (Acute) Hyponatremia (Acute) Hypermagnesemia (Acute) Elevated brain natriuretic peptide (BNP) level (Acute) Chronic anticoagulation (Acute) Daily consumption of alcohol (Acute) Obesity (BMI 30.0-34.9) (Acute) History of CHF (congestive heart failure) (Chronic) Atrial fibrillation, chronic (Chronic) Medical History Atrial fibrillation, chronic NOAC and B-benjie Chronic anticoagulation Apixaban/Eliquis Daily consumption of alcohol Was six beer per day. Changing to three drinks per day in March 2020. History of CHF (congestive heart failure) Presumptive, based on patient's description of why he was put on diuretics several years ago with "some fluid around my heart and lungs" and given by a package delivery driver. Obesity (BMI 30.0-34.9) Surgical History History of appendectomy History of arthroscopy of right knee History of herniorrhaphy Umbilical History of herniorrhaphy Inguinal History of repair of right rotator cuff History of tonsillectomy Family History Mother Myocardial infarction, Onset Age: 78 Social History (Updated 04/11/20 @ 18:01 by Bashir Garcia DO) smoking status: Former smoker additional history: Social history: Patient quit smoking in the early 80s drinks 4-6 drinks of alcohol per night but lately has cut down to 3. Uses a cane to ambulate sometimes a walker in the middle the night. By himself. MEDS/ALLERGIES Home Medications and Allergies Home Medications Medication Instructions Recorded Confirmed Type Eliquis 2.5 mg PO BID 04/11/20 04/11/20 History Spiriva with HandiHaler 1 cap INHALATION QDAY 04/11/20 04/11/20 History atenolol 25 mg PO QDAY 04/11/20 04/11/20 History febuxostat [Uloric] 40 mg PO QDAY 04/11/20 04/11/20 History magnesium 250 mg PO QDAY 04/11/20 04/11/20 History methylprednisolone 4 mg PO QAM 04/11/20 04/11/20 History omeprazole 80 mg PO DAILY 04/11/20 04/11/20 History simvastatin 10 mg PO QHS 04/11/20 04/11/20 History vitamins A,C,Q-ikpi-reusmy 2 tab PO BID 04/11/20 04/11/20 History Allergies Allergy/AdvReac Type Severity Reaction Status Date / Time No Known Drug Allergies Allergy Verified 04/11/20 20:11 Physical Examination Vital Signs Vital signs: Temp Pulse Resp BP Pulse Ox 97.3 F 104 H 16 136/83 97 04/14/20 11:00 04/14/20 11:00 04/14/20 11:00 04/14/20 11:00 04/14/20 11:00 General physical appearance General physical exam: well developed, well nourished and other (Confused, ON NRB mask for respiration. ( Breathing treatment )) Eyes Eye exam: PERRL and normal ocular movement ENT ENT exam: normal pinna, normal mucosa and no congestion Head Head exam IM: Present atraumatic and normocephalic Neck Neck exam: no masses and no venous distension Cardiovascular Cardiovascular exam IM: Present normal rate and rhythm Respiratory Respiratory exam: normal expansion and other (Patient on breathing treatment at time of examination. ) Abdomen Abdomen: Present soft, non tender and bowel sounds Integumentary Integumentary: Present other (Softy tissue edema and skin tears Stage 2 LEFT forearm posterior lateral and LEFT arm. Soft issue edema of forearm and arm. Radial puse palpated. FROM of shouder, elbow and hand. ) Neurologic Neurologic: Present other (DTs. Moves all 4 extremities purposefully) Results Labs Result diagrams: 04/12/20 05:24 04/14/20 05:12 Labs: Abnormal lab results 04/14/20 Range/Units 05:12 Anion Gap 7.0 L (8.0-16.0) BUN 28 H (8-23) mg/dL Creatinine 1.3 H (0.7-1.2) mg/dL Glucose 106 H (70-105) mg/dL Calcium 8.5 L (8.6-10.4) mg/dL NT-Pro-B Natriuret Pep 6381.0 H (<450.0) pg/mL Diabetes panel 04/14/20 Range/Units 05:12 Sodium 136 (133-145) mmol/L Potassium 3.6 (3.3-5.1) mmol/L Chloride 101 (96-108) mmol/L Carbon Dioxide 28 (22-30) mmol/L BUN 28 H (8-23) mg/dL Creatinine 1.3 H (0.7-1.2) mg/dL Glucose 106 H (70-105) mg/dL Calcium 8.5 L (8.6-10.4) mg/dL Albumin 3.3 (3.2-5.2) gm/dL Calcium panel 04/14/20 Range/Units 05:12 Calcium 8.5 L (8.6-10.4) mg/dL Phosphorus 3.3 (2.5-4.5) mg/dL Albumin 3.3 (3.2-5.2) gm/dL Pituitary panel 04/14/20 Range/Units 05:12 Sodium 136 (133-145) mmol/L Potassium 3.6 (3.3-5.1) mmol/L Chloride 101 (96-108) mmol/L Carbon Dioxide 28 (22-30) mmol/L BUN 28 H (8-23) mg/dL Creatinine 1.3 H (0.7-1.2) mg/dL Glucose 106 H (70-105) mg/dL Calcium 8.5 L (8.6-10.4) mg/dL Adrenal panel 04/14/20 Range/Units 05:12 Sodium 136 (133-145) mmol/L Potassium 3.6 (3.3-5.1) mmol/L Chloride 101 (96-108) mmol/L Carbon Dioxide 28 (22-30) mmol/L BUN 28 H (8-23) mg/dL Creatinine 1.3 H (0.7-1.2) mg/dL Glucose 106 H (70-105) mg/dL Calcium 8.5 L (8.6-10.4) mg/dL Albumin 3.3 (3.2-5.2) gm/dL All other labs normal. A/P Narrative A/P Narrative: Assessment; UTI on treatment. Reviewed input from Dr. Rosas Investment Specialist. Reviewed patient's progress and subsequent relapse of DTs. Skin tears LEFT arm with serous oozing. No active bleeding, No purulence. Plan: Silvasorb and absorbent dressing at this time. Will follow patient during his hospitalization latera at the clinic. If discharged from hospital, please schedule F/U at wound care center. Time Spent With Patient Time: Total time spent is greater than 50% in coordination of care (as documented) at patient's floor/unit and/or counseling patient: Total time spent with greater than 50% in coordination of care (as documented) at patient's floor/unit and/or counseling patient:: 25 - 35 minutes
[2020-04-14] MEDS ORDERED: OLANZapine 10 MG VIAL IM PRN (19:11)
[2020-04-14] MEDS ORDERED: OLANZapine 5 MG TABLET PO ONE (19:13)
[2020-04-14] MEDS ORDERED: GABAPENTIN 300 MG CAPSULE PO ONE ×2 (19:15)
[2020-04-14] MEDS ORDERED: cloNIDine TTS 2 1 PATCH PATCH TD ONE (19:17)
[2020-04-14] MEDS ORDERED: hydrOXYzine 25 MG TABLET PO PRN (19:19)
[2020-04-14] MEDS: SIMVASTATIN 10 MG TABLET PO SCH (19:40)
[2020-04-14] MEDS ORDERED: MELATONIN 3 MG TABLET PO SCH (21:00)
[2020-04-15] MEDS: LORazepam 2 MG/ML VIAL IV PRN (00:59)
[2020-04-15] MEDS: 0.9 % SODIUM CHLORIDE 10 ML SYRINGE IV SCH ×3 (04:31→22:08)
--- NOTE | 2020-04-15 07:32 | Internal Med Progress Note ---
SUBJECTIVE Subjective Patient information: Note initiated : 04/15/20 at 7:28 am Service Date, if different from initiated Date: [] Patient: Isaac Conde 85 y/o M admitted on 04/11/20 for Weak, cough. Chief Complaint: [] Interval history: History of present illness: Mr. Conde is a 85 year old M Presents the ED with generalized aches and pains and feeling very weak and fatigued. He states that he started feeling crummy about a week ago. Was diagnosed with urinary tract infection and has had dysuria urgency frequency. He finished Bactrim this morning. Because of the worsening of his weakness generalized aches and pains that he came in the ED. All signs are stable. However he did have a hyponatremia and hypokalemia. He had acute kidney injury and an elevated lactate 3.5. Urinalysis is pending. He was started on IV antibiotics and given IV fluid boluses. Case discussed with Dr. Rosas who recommended checking urine eosinophils as since has been on Bactrim. Also describes decreased oral intake the past few days. Denies fever chills. Denies chest pain/ coughing. No diarrhea. 04/12 Patient feeling better today no overnight event or new complaints. Low potassium. But improved renal function. 04/13 No overnight event or new complaints. Renal function improving. Urine culture not growing anything, however he was on antibiotics 04/14 He went into alcohol withdrawal last night. Sedated this morning from Ativan. 04/15 CIWA Ativan last night for withdrawal. Deep sleep this morning. But respond to touch only. Vital signs stable. Unable to gather review of systems given sedation Constitutional Vitals: Vital Signs Temp Pulse Resp BP Pulse Ox 98.6 F 83 18 108/66 97 04/15/20 03:49 04/15/20 03:49 04/15/20 03:49 04/15/20 03:49 04/15/20 03:49 Period Temp Pulse Resp BP Sys/Koo Pulse Ox Last 24 Hr 97.3 F-98.6 F 83-104 16-20 108-149/66-83 97-99 Intake and Output 04/14/20 04/15/20 04/15/20 21:59 05:59 13:59 Intake Total 531 Output Total 503 104 Balance 28 -104 Weight 108.136 kg Intake & Output: Intake & Output 04/14/20 04/15/20 04/15/20 21:59 05:59 13:59 Intake Total 531 Output Total 503 104 Balance 28 -104 Weight 108.136 kg Intake: IV 51 Vitamin B1 100 mg In Sodium 51 Chloride 0.9% 50 ml @ 50 mls/hr IV DAILY ANA Rx#:[id number] Oral 480 Output: Void Amount 500 100 # of times incontinent of urine 3 4 Other: Meal Dinner Percent of Meal Consumed 100% Urine Appearance Clear Clear Urine Color Bright Yellow Bright Yellow Urine Odor Normal Normal Exam: General: sleeping No acute Distress, obese Eyes/N/T: PEERL Head/Neck: neck supple, CV: irreg irreg, No murmurs, Pulm: Clear b/l, no wheezing/rhonchi/rales Abd: soft, nontender, +BS x4 Ext: no clubbing/cyanosis, 1+ chronic b/l LE edema improved Neuro: sedated, responds to touch, spontaneously moves all extremities, Skin: warm/dry OBJ DATA Labs CBC & Chem 7: 04/12/20 05:24 04/14/20 05:12 Labs: Abnormal Lab Results 04/14/20 04/13/20 04/12/20 05:12 05:16 15:58 POC Hct 35 L Seg Neutrophils % Lymphocytes % POC Sodium 130 L Sodium 131 L Potassium POC Chloride 92 L Chloride 94 L Anion Gap 7.0 L POC BUN 42 H BUN 28 H 37 H Creatinine 1.3 H 1.5 H POC Creatinine 2.0 H Glucose 106 H POC Glucose 123 H Uric Acid 8.3 H 8.9 H Calcium 8.5 L 8.4 L POC WB Ioniz Calcium 1.11 L Phosphorus 2.4 L Magnesium Lactate Dehydrogenase 332 H NT-Pro-B Natriuret Pep 6381.0 H Total Protein Albumin Triglycerides 168 H Procalcitonin 04/12/20 04/12/20 04/12/20 05:24 05:24 05:24 POC Hct Seg Neutrophils % 85 H Lymphocytes % 8 L POC Sodium Sodium 129 L Potassium 2.7 L* POC Chloride Chloride 91 L Anion Gap POC BUN BUN 55 H Creatinine 2.2 H POC Creatinine Glucose POC Glucose Uric Acid 10.7 H Calcium 8.2 L POC WB Ioniz Calcium Phosphorus 2.2 L Magnesium 2.9 H Lactate Dehydrogenase 255 H NT-Pro-B Natriuret Pep Total Protein 5.6 L Albumin 3.1 L Triglycerides 211 H Procalcitonin 0.18 H Meds: Medications Acetaminophen (Acetaminophen 325 Mg Tablet) 650 mg PO Q6HP PRN PRN Reason: PAIN/FEVER > 101 Last Admin: 04/14/20 00:11 Dose: 650 mg Documented by: Albuterol/Ipratropium (Ipratropium/Albuterol 3 Ml Ampul.Neb) 3 ml NEB Q4HP PRN PRN Reason: Shortness Of Breath Apixaban (Apixaban 5 Mg Tablet) 2.5 mg PO BID [facility] Last Admin: 04/14/20 19:40 Dose: 2.5 mg Documented by: Atenolol (Atenolol 25 Mg Tablet) 25 mg PO QDAY [facility] Last Admin: 04/14/20 13:48 Dose: Not Given Documented by: Docusate Sodium (Docusate Sodium 100 Mg Capsule) 100 mg PO BID [facility] Last Admin: 04/14/20 19:40 Dose: 100 mg Documented by: Folic Acid (Folic Acid 1 Mg Tablet) 1 mg PO DAILY [facility] Last Admin: 04/14/20 13:47 Dose: Not Given Documented by: Hydroxyzine HCl (Hydroxyzine 25 Mg Tablet) 50 mg PO HSP PRN PRN Reason: Acne Potassium Chloride 40 meq/ (Dextrose) 520 mls @ 130 mls/hr IV UD PRN PRN Reason: Potassium < 3 Last Infusion: 04/12/20 13:27 Dose: Infused Documented by: Magnesium Sulfate (Magnesium Sulfate) 2 gm in 50 mls @ 50 mls/hr IV UD PRN PRN Reason: Magnesium </= 1.6 Thiamine HCl 100 mg/ Sodium (Chloride) 51 mls @ 50 mls/hr IV DAILY [facility] Stop: 04/16/20 10:02 Last Infusion: 04/14/20 16:31 Dose: Infused Documented by: Iron Carb/Multivit/Swabber/Folic Acid (Multivit,Ther Iron,Ca,Fa & Min 1 Tablet) 1 tab PO DAILY [facility] Last Admin: 04/14/20 13:48 Dose: Not Given Documented by: Lorazepam (Lorazepam 2 Mg/Ml Vial) 0 mg IV Q4HP PRN; Protocol PRN Reason: ANXIETY/SEDATION Last Admin: 04/15/20 00:59 Dose: 2 mg Documented by: Melatonin (Melatonin 3 Mg Tablet) 3 mg PO QHS [facility] Last Admin: 04/14/20 19:40 Dose: 3 mg Documented by: Methylprednisolone 4 (Mg Tablet) 1 mg PO [facility] Last Admin: 04/14/20 13:47 Dose: Not Given Documented by: Olanzapine (Olanzapine 10 Mg Vial) 5 mg IM Q6HP PRN PRN Reason: Alcohol Withdrawal Ondansetron HCl (Ondansetron 4 Mg/2 Ml Vial) 4 mg IV Q4HP PRN PRN Reason: Nausea And Vomiting Pantoprazole Sodium (Pantoprazole 40 Mg Packet) 40 mg PO [facility] Last Admin: 04/14/20 13:46 Dose: Not Given Documented by: Febuxostat [Uloric] (40 Mg Tablet) 1 dose PO QDAY [facility] Last Admin: 04/14/20 11:39 Dose: Not Given Documented by: Polyethylene Glycol (Polyethylene Glycol 3350 17 Gm Packet) 17 gm PO DAILYP PRN PRN Reason: Constipation Last Admin: 04/13/20 11:09 Dose: 17 gm Documented by: Potassium Chloride (Potassium Chloride 20 Meq Tablet) 40 meq PO UD PRN PRN Reason: Potssium is 3-3.5 Last Admin: 04/13/20 11:55 Dose: 40 meq Documented by: Potassium Chloride (Potassium Chloride 20 Meq Tablet) 40 meq PO UD PRN PRN Reason: Potassium < 3 Last Admin: 04/12/20 08:41 Dose: 40 meq Documented by: Senna (Sennosides 1 Tablet) 2 tab PO DAILYP PRN PRN Reason: Constipation Simvastatin (Simvastatin 10 Mg Tablet) 10 mg PO QHS [facility] Last Admin: 04/14/20 19:40 Dose: 10 mg Documented by: Sodium Chloride (0.9 % Sodium Chloride 10 Ml Syringe) 10 ml IV Q8 [facility] Last Admin: 04/15/20 04:31 Dose: 10 ml Documented by: Spironolactone (Spironolactone 25 Mg Tablet) 25 mg PO BIDD [facility] Last Admin: 04/14/20 16:35 Dose: 25 mg Documented by: Tiotropium [place] (Tiotropium [place] 18 Mcg Inhalant) 18 mcg INH QDAY [facility] Last Admin: 04/14/20 11:40 Dose: Not Given Documented by: A/P Narrative A/P Narrative: A: *Alcohol disorder with Withdrawal: *WILLIAM unknown baseline: 2/2 volume depletion/meds + ?bactrim + ?recent uti -improved *?UTI: recently treated with bactrim, UC negative *?Sepsis vs hypovolemia/renal insult: w/elevated lactate *Volume depletion: improved *Hyponatremia/hypokalemia (has been mildly hyponatremic on old labs): -hypermag, is on supp daily at home -resolved *Generalized weakness/deconditioning: improved *HTN/HLD: *COPD (typically uses 2L@night, but stopped on own 1-month ago): -on methylprednisolone 4mg daily chronically *Chronic Afib: On Eliquis and atenolol *Obesity: *GERD: *skin tears from fall: *Concern if pt able to care for self at home P: -awaiting recovery from etoh w/d -CIWA, vitamins, prn benzo -IVF d/c'd -abx d/c'd as uc/bc neg -Nephrology following -wound care, f/u with Dr. Garcia outpt -Continue home Eliquis/BB -Hold home ACEI/Lasix for renal fxn -cont home methylprednisolone -compression wraps to legs -PT/OT -CM for placement needs -ppx: Eliquis/home PPI DNR Time Spent With Patient Time: Total time spent is greater than 50% in coordination of care (as documented) at patient's floor/unit and/or counseling patient: QUALITY Stroke Symptom Onset Unknown: No VTE Deep Vein Thrombosis/Pulmonary Embolism Present on Admission: No
--- NOTE | 2020-04-15 08:36 | Nephrology Progress Note ---
SUBJECTIVE Subjective Patient information: Note initiated : 04/15/20 at 8:33 am Service Date, if different from initiated Date: [] Patient: Isaac Conde 85 y/o M admitted on 04/11/20 for Weak, cough. Chief Complaint: [Weakness] Patient was admitted with concern for sepsis due to a mildly elevated serum lactate level (venous) but has been culture negative since admission and without fever or white count or other signs or symptoms of sepsis. He had acute on chronic renal insufficiency along with hyponatremia and hypokalemia in the setting of daily beer consumption as well as JANEL inhibitor and diuretic therapy. His GFR is improved by discontinuing his JANEL inhibitor and with some volume exp ansion. He does have peripheral edema and an elevated BNP around 7000 Echocardiogram interpretation is pending He is currently on Aldactone and carvedilol. This morning he seems overly medicated and is fairly obtunded. I would recommend that you stop treating his impending DTs and at this point if I used anything it would be gabapentin as he is > 48 hrs from last drink except his Modelo yesterday. At this point time I think it is better that all his psychoactive medications be discontinued particularly those that can contribute to his hyponatremia such as Zyprexa. Constitutional Vitals: Vital Signs Temp Pulse Resp BP Pulse Ox 37.0 C 83 18 108/66 97 04/15/20 03:49 04/15/20 03:49 04/15/20 03:49 04/15/20 03:49 04/15/20 03:49 Period Temp Pulse Resp BP Sys/Koo Pulse Ox Last 24 Hr 36.3 C-37.0 C 83-104 16-20 108-149/66-83 97-99 Intake and Output 04/14/20 04/15/20 04/15/20 21:59 05:59 13:59 Intake Total 531 Output Total 503 104 Balance 28 -104 Weight 108.136 kg Intake & Output: Intake & Output 04/14/20 04/15/20 04/15/20 21:59 05:59 13:59 Intake Total 531 Output Total 503 104 Balance 28 -104 Weight 108.136 kg Intake: IV 51 Vitamin B1 100 mg In Sodium 51 Chloride 0.9% 50 ml @ 50 mls/hr IV DAILY ANA Rx#:[id number] Oral 480 Output: Void Amount 500 100 # of times incontinent of urine 3 4 Other: Meal Dinner Percent of Meal Consumed 100% Urine Appearance Clear Clear Urine Color Bright Yellow Bright Yellow Urine Odor Normal Normal General appearance: obese Exam: Obtunded Head Head exam: Present atraumatic and normocephalic Eye Eye exam: Present EOMI and PERRL; Absent nystagmus Neck Neck exam: Present normal inspection; Absent meningismus Respiratory Respiratory exam: Present normal respiratory exam and rhonchi Cardiovascular Cardiovascular exam: Present normal rate and rhythm, +S1 and +S2; Absent JVD GI/Abdominal GI/Abdominal exam: Present normal bowel sounds and soft Additional comments: Central obesity Extremities Exam Extremities exam: Present pedal edema Neurological Exam Neurological exam: Present altered; Absent oriented X3 Additional comments: Withdrawals to noxious stimuli Psychiatric Additional comments: Obtunded Skin Skin exam: Present dry A/P Assessment and plan (1) Acute renal failure (ARF): Assessment and plan: Acute renal failure (ARF): Assessment and plan: D/Dx 1. Acute prerenal azotemia Evidenced by low FeNa Likely etiology is dehydration from look diuretics and decreased po intake in combination with ACEi and possible underlying CHF If this is the case should improve within 72 hours after holding fosinopril and lasix Hydrate Review U/A 2. Recent Bactrim therapy requires examination for signs and sx of Acute Interstitial Nephritis. Urine eos Check peripheral smear for eos ESR and CRP 3. Obstruction Renal U/S 4. GN Nothing to date to suggest this Review urine studies 5. ATN Could have some early ATN but urine indicies currently favor prerenal insult Look for casts in urine Low CPK makes rhabdomyolysis unlikely Status: Acute Comment: Even though there are no eosinophils, the lg number of WBC and no bacteria supports interstitial nephritis > UTI/sepsis Stop ABx if cultures negative at 48 hours Qualifiers: Acute renal failure type: unspecified Qualified Code(s): N17.9 - Acute kidney failure, unspecified (2) Hypokalemia: Assessment and plan: Hypokalemia: Assessment and plan: The combination of low Na and K strongly suggests diuretic related plus excess free water and low K intake from excessive BEER intake If he has CHF, sharad levels are usually high and contribute to the hyponatremia He must have a profound deficiency in K at baseline as Bactrim, ACEi and ARF all tend to raise the serum potassium. Check for GI K losses with diarrhea Status: Acute Comment: Replace K po/IV including KPO4 for phosphorous replacement Aldactone started for low K and CHF (3) Hyponatremia: Assessment and plan: Hyponatremia: Assessment and plan: As above: loop diuretics and excess free H20 (Beer) tend to drive Na down, as dose low grade elevation of Ang II/Sharad system with CHF. NS IV and free water restriction upon dischaarge Needs to quit drinking beer in an ideal world...this is not going to happen Status: Acute Comment: PO fluid restriction Use hyperosmolar TF (Nephro) in place of H2O to swallow Rx Stay on sodium restricted diet due to edema and probable CHF (4) Elevated brain natriuretic peptide (BNP) level: Status: Acute Comment: Sodium restrict diet Add spironolactone today, (5) History of CHF (congestive heart failure): Assessment and plan: As above Echocardiogrm results pending Status: Chronic Comment: Presumptive, based on patient's description of why he was put on diuretics several years ago with "some fluid around my heart and lungs" and given by a board design engineer. (6) Atrial fibrillation, chronic: Assessment and plan: Consider Holiday heart NOAC in an alcoholic is risky Status: Chronic Comment: NOAC and B-benjie Time Spent With Patient Time: Total time spent is greater than 50% in coordination of care (as documented) at patient's floor/unit and/or counseling patient:
[2020-04-15] MEDS: PANTOPRAZOLE 40 MG PACKET PO SCH (08:38)
[2020-04-15] MEDS: SPIRONOLACTONE 25 MG TABLET PO SCH ×2 (08:39→16:05)
[2020-04-15] MEDS: THIAMINE 100 MG in 0.9 % SODIUM CHLORIDE 50 ML IV SCH (09:34)
[2020-04-15] MEDS: APIXABAN 5 MG TABLET PO SCH ×2 (09:44→22:07)
[2020-04-15] MEDS: DOCUSATE SODIUM 100 MG CAPSULE PO SCH ×2 (09:44→22:08)
[2020-04-15] MEDS: MULTIVIT,THER IRON,CA,FA & MIN 1 TABLET PO SCH (09:44)
[2020-04-15] MEDS: FOLIC ACID 1 MG TABLET PO SCH (09:44)
[2020-04-15] MEDS: ATENOLOL 25 MG TABLET PO SCH (09:45)
[2020-04-15] MEDS: TIOTROPIUM BROMIDE 18 MCG INHALANT INH SCH (09:45)
--- NOTE | 2020-04-15 16:20 | General Surgery Progress Note ---
SUBJECTIVE Subjective Patient information: Note initiated : 04/15/20 at 4:16 pm Service Date, if different from initiated Date: [] Patient: Isaac Conde 85 y/o M admitted on 04/11/20 for Weak, cough. Chief Complaint: [] Additional PMFSH (Level 3 Only): Patient seen on rounds this morning along with Kenny RN In patient wound care nurse. Fast asleep and snoring at the time. Dressings LUE CDI, NO strike thru bleeding or staining. Constitutional Vitals: Vital Signs Temp Pulse Resp BP Pulse Ox 97.6 F 78 18 121/67 95 04/15/20 12:00 04/15/20 12:00 04/15/20 12:00 04/15/20 12:00 04/15/20 12:00 Period Temp Pulse Resp BP Sys/Koo Pulse Ox Last 24 Hr 97.4 F-98.6 F 78-89 18-20 108-130/62-67 95-98 Intake and Output 04/15/20 04/15/20 04/15/20 05:59 13:59 21:59 Intake Total 51 Output Total 104 2 1 Balance -104 49 -1 Intake & Output: Intake & Output 04/15/20 04/15/20 04/15/20 05:59 13:59 21:59 Intake Total 51 Output Total 104 2 1 Balance -104 49 -1 Intake: IV 51 Vitamin B1 100 mg In Sodium 51 Chloride 0.9% 50 ml @ 50 mls/hr IV DAILY ANA Rx#:[id number] Output: Void Amount 100 # of times incontinent of urine 4 2 1 Other: Urine Appearance Clear Urine Color Bright Yellow Urine Odor Normal Exam: NO changes SARY. LUE dressings CDI. No break thru blood os fluid staining. Fingers PWD. A/P Narrative A/P Narrative: Assessment; Stable from wound care point of view. Plan: Await developments. Continue to monitor wound dressing. Time Spent With Patient Time: Total time spent is greater than 50% in coordination of care (as documented) at patient's floor/unit and/or counseling patient: Total time spent with greater than 50% in coordination of care (as documented) at patient's floor/unit and/or counseling patient:: less than 15 minutes
[2020-04-15] MEDS: SIMVASTATIN 10 MG TABLET PO SCH (22:08)
[2020-04-15] MEDS: ACETAMINOPHEN 325 MG TABLET PO PRN (22:20)
[2020-04-16] MEDS: 0.9 % SODIUM CHLORIDE 10 ML SYRINGE IV SCH ×3 (04:17→12:12)
[2020-04-16 06:36] LABS: Basophils # (Auto) 0.03 K/mcL (0.00-0.20); Basophils % (Auto) 0.4 % (0.0-2.0); Eosinophils # (Auto) 0.28 K/mcL (0.00-0.70); Eosinophils % (Auto) 3.9 % (0.0-7.0); Hematocrit 36.8 % (41.0-55.0); Hemoglobin 12.8 g/dL (13.5-16.5); Lymphocytes # (Auto) 1.12 K/mcL (1.50-4.80); Lymphocytes % (Auto) 15.4 % (15.0-49.0); Mean Cell Volume 97.1 fL (80.0-100.0); Mean Corpuscular HGB Conc 34.8 g/dL (31.0-36.0); Mean Platelet Volume 10.1 fL (7.4-10.4); Monocytes # (Auto) 0.74 K/mcL (0.10-0.90); Monocytes % (Auto) 10.2 % (1.0-12.0); Neutrophils % (Auto) 70.1 % (38.0-78.0); Platelet Count 159 K/mcL (140-440); RBC 3.79 M/mcL (4.50-5.90); Red Cell Distribution Width 12.9 % (11.5-14.5); WBC 7.3 K/mcL (4.5-11.0)
[2020-04-16 06:59] LABS: ALT/SGPT 30 U/L (<40); AST/SGOT 40 U/L (<40); Albumin 2.8 gm/dL (3.2-5.2); Albumin/Globulin Ratio 0.9 (1.0-2.3); Alkaline Phosphatase 90 U/L (39-117); Bilirubin,Direct 0.2 mg/dL (<0.3); Bilirubin,Total 0.8 mg/dL (0.1-1.0); Blood Urea Nitrogen 17 mg/dL (8-23); Calcium 9.1 mg/dL (8.6-10.4); Carbon Dioxide 30 mmol/L (22-30); Chloride 97 mmol/L (96-108); Globulin 3.2 gm/dL (2.2-3.7); Glomerular Filtration Rate 78; Glucose 104 mg/dL (70-105); Lactate Dehydrogenase 336 U/L (135-225); Phosphorous 2.5 mg/dL (2.5-4.5); Triglycerides 181 mg/dL (<150); Uric Acid 8.7 mg/dL (2.5-8.0)
[2020-04-16] MEDS ORDERED: THIAMINE 100 MG/ML VIAL ONE (08:54)
[2020-04-16] MEDS: FOLIC ACID 1 MG TABLET PO SCH (09:00)
[2020-04-16] MEDS: APIXABAN 5 MG TABLET PO SCH (09:00)
[2020-04-16] MEDS: SPIRONOLACTONE 25 MG TABLET PO SCH (09:01)
[2020-04-16] MEDS: MULTIVIT,THER IRON,CA,FA & MIN 1 TABLET PO SCH (09:01)
[2020-04-16] MEDS: THIAMINE 100 MG in 0.9 % SODIUM CHLORIDE 50 ML IV SCH (09:01)
[2020-04-16] MEDS: ATENOLOL 25 MG TABLET PO SCH (09:01)
[2020-04-16] MEDS: DOCUSATE SODIUM 100 MG CAPSULE PO SCH (09:01)
[2020-04-16] MEDS: TIOTROPIUM BROMIDE 18 MCG INHALANT INH SCH (09:07)
--- NOTE | 2020-04-16 10:38 | General Surgery Progress Note ---
SUBJECTIVE Subjective Patient information: Note initiated : 04/16/20 at 10:36 am Service Date, if different from initiated Date: [] Patient: Isaac Conde 85 y/o M admitted on 04/11/20 for Weak, cough. Chief Complaint: [] Additional PMFSH (Level 3 Only): Patient seen with Kenny BENAVIDES. In Patient wound care nurse. Reviewed progress and nephrology input. Wound care / dressings plan reviewed Dr. Hughes. Hospitalist. Constitutional Vitals: Vital Signs Temp Pulse Resp BP Pulse Ox 96.5 F L 89 16 141/84 91 04/16/20 08:00 04/16/20 08:00 04/16/20 08:00 04/16/20 08:00 04/16/20 08:00 Period Temp Pulse Resp BP Sys/Koo Pulse Ox Last 24 Hr 96.5 F-97.9 F 78-94 15-20 104-141/58-84 91-96 Intake and Output 04/15/20 04/16/20 04/16/20 21:59 05:59 13:59 Intake Total 240 0 740 Output Total 202 152 100 Balance 38 -152 640 Weight 238 lb Intake & Output: Intake & Output 04/15/20 04/16/20 04/16/20 21:59 05:59 13:59 Intake Total 240 0 740 Output Total 202 152 100 Balance 38 -152 640 Weight 238 lb Intake: Nourishment/Supplement quantity 440 (ml) Oral 240 0 300 Output: Void Amount 200 150 100 # of times incontinent of urine 2 2 Other: Meal Dinner Breakfast Percent of Meal Consumed 25% 75% Feeding Ability Assist with Tray Set Up Assist with Tray Set Up Nourishment/Supplement name Nepro Urine Appearance Clear Clear Clear Urine Color Dark Yellow Dark Yellow Light Jessy Urine Odor Normal Normal Normal General appearance: cooperative, no acute distress and obese Exam: Awake, Lucid and conversational. Ate breakfast. No fever. VSS. Unremarkable SARY. L/E: LEFT upper extremity. Lymphedema has improved. Skin tear sites are dry and Epidermal torn skin is adhering to wound base. Right arm skin tear sites are dry and healing. A/P Narrative A/P Narrative: Assessment: Soft tissue lymphedema LUE improving. Skin tear sites are dry and healing / Epithelializing. Plan: Continue present wound care management as discussed. If discharged, F/U at wound care clinic in 1 week. Time Spent With Patient Time: Total time spent is greater than 50% in coordination of care (as documented) at patient's floor/unit and/or counseling patient: Total time spent with greater than 50% in coordination of care (as documented) at patient's floor/unit and/or counseling patient:: 25 - 35 minutes
--- NOTE | 2020-04-16 14:31 | Discharge Summary ---
Discharge Provider Provider Patient information: Note initiated : 04/16/20 at 2:28 pm Service Date, if different from initiated Date: [] Patient: Isaac Conde 85 y/o M admitted on 04/11/20 for Weak, cough. Date of admission: 04/11/20 18:48 Discharge date: 04/16/20 Primary care physician: Fitz Deleon Attending physician on admission: Bashir Garcia Consults: 04/11/20 Consult to Physician [CONS] Stat Comment: Consulting Provider: Isaac Rosas Reason For Exam: Physician to Consult 04/12/20 07:44 Consult to Physician [CONS] Routine Comment: Consulting Provider: Bashir Garcia Reason For Exam: Physician to Consult 04/14/20 10:39 Consult to Physician [CONS] Routine Comment: left arm wounds Consulting Provider: Shaan Garcia Reason For Exam: Physician to Consult Attending physician on discharge: Anni Hughes Discharge Meds Discharge Medications Home Medications Eliquis 2.5 mg PO BID 04/11/20 [History Confirmed 04/11/20 Last Taken 04/10/20 19:00] Spiriva with HandiHaler 1 cap INHALATION QDAY 04/11/20 [History Confirmed 04/11/20 Last Taken 04/10/20 09:00] atenolol 25 mg PO QDAY 04/11/20 [History Confirmed 04/11/20 Last Taken 04/10/20 19:00] febuxostat [Uloric] 40 mg PO QDAY 04/11/20 [History Confirmed 04/11/20 Last Taken 04/11/20 09:00] magnesium 250 mg PO QDAY 04/11/20 [History Confirmed 04/11/20 Last Taken 04/10/20 09:00] methylprednisolone 4 mg PO QAM 04/11/20 [History Confirmed 04/11/20 Last Taken 04/11/20 09:00] omeprazole 80 mg PO DAILY 04/11/20 [History Confirmed 04/11/20 Last Taken 04/11/20 09:00] simvastatin 10 mg PO QHS 04/11/20 [History Confirmed 04/11/20 Last Taken 04/10/20 19:00] vitamins A,C,U-vkgg-vgkdys 2 tab PO BID 04/11/20 [History Confirmed 02/27/21 Last Taken 04/10/20 19:00] folic acid 1 mg PO DAILY #30 tab 04/16/20 [Rx Last Taken Unknown] ggyyomme-qmpm-SV-calcium-mins [Thera M Plus (ferrous fumarat)] 1 tab PO DAILY #30 tab 04/16/20 [Rx Last Taken Unknown] spironolactone 25 mg PO BIDD #30 tab 04/16/20 [Rx Last Taken Unknown] thiamine HCl (vitamin B1) 100 mg PO QDAY #30 tab 04/16/20 [Rx Last Taken Unknown] COURSE Hospital Course Hospital course: History of present illness: Mr. Conde is a 85 year old M Presents the ED with generalized aches and pains and feeling very weak and fatigued. He states that he started feeling crummy about a week ago. Was diagnosed with urinary tract infection and has had dysuria urgency frequency. He finished Bactrim this morning. Because of the worsening of his weakness generalized aches and pains that he came in the ED. All signs are stable. However he did have a hyponatremia and hypokalemia. He had acute kidney injury and an elevated lactate 3.5. Urinalysis is pending. He was started on IV antibiotics and given IV fluid boluses. Case discussed with Dr. Rosas who recommended checking urine eosinophils as since has been on Bactrim. Also describes decreased oral intake the past few days. Denies fever chills. Denies chest pain/ coughing. No diarrhea. 04/12 Patient feeling better today no overnight event or new complaints. Low potassium. But improved renal function. 04/13 No overnight event or new complaints. Renal function improving. Urine culture not growing anything, however he was on antibiotics 04/14 He went into alcohol withdrawal last night. Sedated this morning from Ativan. 04/15 CIWA Ativan last night for withdrawal. Deep sleep this morning. But respond to touch only. Vital signs stable. 04/16 Patient awake and alert. He became more alert and interactive yesterday afternoon. Showing no signs of withdrawal. Is being provided 3 beers a day to help prevent withdrawal, discussed abstinence with the patient, but he cannot commit to abstaining from further alcohol. Rather than putting him through complicated withdrawal, will continue to provide alcoholic beverage. His acute kidney injury suggested prerenal azotemia with low fractional excretion of sodium on labs. He had decreased oral intake as well as loop diuretic and JANEL inhibitor use. There may have been a component of trimethoprim effect. He did have pyuria without significant growth on culture suggesting a nephritis (query TMP/SMX effect). Hyponatremia was thought to be combination of excess water (in the form of beer). He was on a fluid restriction and sodium restriction, and spironolactone was started during this hospitalization. Discharge diagnosis: Acute kidney injury, resolved, likely secondary to volume depletion and med Secondary discharge diagnosis: Alcohol abuse with withdrawal Hyponatremia Hypokalemia Hypertension Deconditioning Chronic atrial fibrillation Fall with skin tears Procedures: Local wound care by Dr. Garcia and the wound care team Time Spent with Patient Time attestation: Total time spent providing and/or coordinating discharge services: Time spent: Greater than 30 minutes EXAM Constitutional Vitals: Temp Pulse Resp BP Pulse Ox 96.8 F L 1 L 16 132/77 97 04/16/20 12:00 04/16/20 12:00 04/16/20 12:00 04/16/20 12:00 04/16/20 12:00 General: In no acute distress, in bed having wound care done Chest: Clear, unlabored respirations Cardiovascular: Irregular, trace lower extremity edema Abdomen: Soft Extremities: Skin tears and ecchymoses on the upper extremities, dressings being changed Neuro: Alert, oriented to person, place and situation with generalized weakness Discharge Data Data Completed and Pending Labs on day of discharge: Labs from last 24 hours 04/16/20 04/16/20 05:36 05:36 WBC 7.3 RBC 3.79 L Hgb 12.8 L Hct 36.8 L MCV 97.1 MCH 33.8 MCHC 34.8 RDW 12.9 Plt Count 159 MPV 10.1 Neut % (Auto) 70.1 Lymph % (Auto) 15.4 [place] % (Auto) 10.2 Eos % (Auto) 3.9 Baso % (Auto) 0.4 Lymph # (Auto) 1.12 L [place] # (Auto) 0.74 Eos # (Auto) 0.28 Baso # (Auto) 0.03 Absolute Neutrophils 5.10 Sodium 134 Potassium 3.3 Chloride 97 Carbon Dioxide 30 Anion Gap 7.0 L BUN 17 Creatinine 0.9 GFR Calculation 78 Glucose 104 Uric Acid 8.7 H Calcium 9.1 Phosphorus 2.5 Magnesium 2.2 Total Bilirubin 0.8 Direct Bilirubin 0.2 GGT 60 AST 40 H ALT 30 Alkaline Phosphatase 90 Lactate Dehydrogenase 336 H Total Protein 6.0 Albumin 2.8 L Globulin 3.2 Albumin/Globulin Ratio 0.9 L Triglycerides 181 H Preliminary micro results at discharge 04/11/20 16:23 Blood Culture - Preliminary Blood 04/11/20 16:15 Blood Culture - Preliminary Blood Impressions Impressions: Renal ultrasound: Mild thinning of the renal cortex of both kidneys with slightly echogenic renal parenchyma due to chronic medical renal disease. Functioning kidneys with urine output bilaterally. Very small fluid collection in the right posterior pararenal space. Chest x-ray: Minimal patchy right basilar infiltrate. Echocardiogram: Report pending at discharge Discharge Plan Patient/Caregiver Discharge Instructions Activity: increase activity as tolerated Diet: Low Sodium (2gm) Instructions: Acute Kidney Injury (DC), Urinary Tract Infection in Men (DC), Sepsis (GEN) Activity Restrictions/Additional Instructions: Follow up at wound healing center for skin tears to left arm within 1 week- they need ongoing treatment, monitoring. Low sodium (2 gram) diet as tolerated. Increase activity as tolerated. Call your physician for sustained fever greater than 100.5, increase in weakness, or any questions/concerns. This discharge packet is provided to you to help keep you informed about your care. We want to ensure you get everything you need when you go home. You will also be receiving a call from us in a few days to follow up with you and see how you are doing since your discharge. This gives us a chance to listen to any concerns you maybe experiencing since you were discharged or any additional needs you may have, as well as providing us feedback on your care experience. We strive to always provide excellent care and thank you for your feedback and for choosing [facility]. Prescriptions: New spironolactone 25 mg Tablet 25 mg PO BIDD Qty: 30 RF: 0 folic acid 1 mg Tablet 1 mg PO DAILY Qty: 30 RF: 0 Thera M Plus (ferrous fumarat) 9 mg iron-400 mcg Tablet 1 tab PO DAILY Qty: 30 RF: 0 thiamine HCl (vitamin B1) 100 mg tablet 100 mg PO QDAY Qty: 30 RF: 0 Continued simvastatin 10 mg Tablet 10 mg PO QHS RF: 0 atenolol 25 mg Tablet 25 mg PO QDAY RF: 0 Eliquis 2.5 mg Tablet 2.5 mg PO BID RF: 0 methylprednisolone 4 mg Tablet 4 mg PO QAM RF: 0 omeprazole 40 mg Capsule,Delayed Release(Dr/Ec) 80 mg PO DAILY RF: 0 magnesium 250 mg Tablet 250 mg PO QDAY RF: 0 Spiriva with HandiHaler 18 mcg Capsule, W/Inhalation Device 1 cap INHALATION QDAY RF: 0 febuxostat [Uloric] 40 mg Tablet 40 mg PO QDAY RF: 0 vitamins A,C,T-pwlu-wigcbj 7,160 unit- 113 mg-100 unit Tablet 2 tab PO BID RF: 0 Discontinued fosinopril 40 mg Tablet 40 mg PO QDAY RF: 0 furosemide 40 mg Tablet 40 mg PO BID RF: 0 Other Ambulatory Orders: OT Discharge Order (Routine) Location: None Selected Ordered By: Anni Hughes Physical Therapy at Discharge - General (Routine) Location: None Selected Ordered By: Anni Hughes Follow Up Plan Follow up with: Shaan Garcia MD [Physician] - (Please call and schedule a hospital follow to be seen within one week for wounds on arms.) Isaac Rosas MD [Physician] - (Please call and schedule a hospital follow up.) Fitz Deleon MD [Primary Care Provider] - (Please call and schedule a hospital follow up.) Patient Disposition: Xfer SNF Prognosis: Fair Rehab Potential: Fair I certify that the patient requires SNF services: Yes Overall status at discharge: patient is progressing back to baseline Discharge Orders: Discharge Order (Routine); Ordered 04/16/20 Ordered By: Anni Hughes QUALITY VTE Deep Vein Thrombosis/Pulmonary Embolism Present on Admission: No
== END 2020-04-16 15:22 | DRG 683 ==
LOC: ED 13:55 → MEDSUR 18:48
PROVIDERS: ADMIT Internal Medicine; ATTEND Internal Medicine

== ENCOUNTER 2021-06-03 17:55 | Observation (INO) ==
--- NOTE | 2021-06-03 18:20 | Emergency Department Note ---
HPI General Chief complaint: Dizziness Stated complaint: Dizzy and confusion Time Seen by Provider: 06/03/21 18:15 Source: patient Mode of arrival: ambulatory Limitations: no limitations History of Present Illness HPI Narrative: Narrative: 86 yo M w/ h/o HTN, AF on eliquis, CHF, [place] palsy p/w a resolved episode of confusion and lightheadedness. He reports that he was at home watching TV when he had the unprovoked onset of lightheadedness and confusion. This resolved spontaneously after a few minutes. He currently feels that he is at his baseline. He had a similar episode three weeks ago and was evaluated at [facility] apparently w/ CT and MRI and was eventually told that he was dehydrated. He reports eating/drinking as well as he can but this is limited by chronic swallowing issues. He denies CP, SOB, F/C, N/V/D. Related Data Home Medications Medication Instructions Recorded Confirmed tiotropium bromide 18 mcg capsule 1 cap INHALATION QDAY 04/11/20 05/31/21 with inhalation device (Spiriva with HandiHaler) simvastatin 10 mg tablet 20 mg PO QHS tab 12/24/20 05/31/21 omeprazole 20 mg capsule,delayed 40 mg PO QDAY cap 02/02/21 05/31/21 release apixaban 5 mg tablet (Eliquis) 5 mg PO BID 05/05/21 05/31/21 furosemide 40 mg tablet 80 mg PO QAM tab 05/05/21 05/31/21 apixaban 2.5 mg tablet 2.5 mg PO BID 06/03/21 06/03/21 Previous Rx's Medication Instructions Recorded atenolol 25 mg tablet 25 mg PO QDAY #90 tab 01/01/21 methylprednisolone 4 mg tablet 4 mg PO QDAY #90 tab 02/16/21 febuxostat 80 mg tablet 40 mg PO QDAY 90 Days #45 tab 03/17/21 spironolactone 25 mg tablet 25 mg PO QAM #90 tab 03/23/21 cephalexin 500 mg capsule 500 mg PO tid 10 Days #30 cap 05/25/21 Allergies Allergy/AdvReac Type Severity Reaction Status Date / Time No Known Drug Allergies Allergy Verified 05/31/21 13:47 Review of Systems ROS ROS Narrative: Narrative: All systems ED: reviewed and negative except as stated. PFSH Narrative Patient History Narrative: Narrative: Medical/Surgical/Family History All Active Problems (Updated 06/03/21 @ 21:38 by Matt Nuñez MD) Lightheadedness (Acute) Acute confusion (Acute) Parotid gland enlargement (Acute) Dysphagia (Acute) Hip pain, right (Acute) Hypertension (Chronic) Headache (Acute) Acute sinusitis (Acute) GERD (gastroesophageal reflux disease) (Chronic) Skin tear of forearm without complication (Acute) Sore throat (Acute) Chronic use of steroids (Chronic) Gout (Chronic) UTI (urinary tract infection) (Acute) COPD (chronic obstructive pulmonary disease) (Acute) Atrial fibrillation, chronic (Chronic) History of CHF (congestive heart failure) (Chronic) Obesity (BMI 30.0-34.9) (Acute) Daily consumption of alcohol (Acute) Chronic anticoagulation (Acute) Sepsis (Acute) Hypokalemia (Acute) Acute renal failure (ARF) (Acute) Hyponatremia (Acute) Hypermagnesemia (Acute) Elevated brain natriuretic peptide (BNP) level (Acute) Head injury, acute (Acute) Chronic anticoagulation (Acute) Multiple skin tears (Acute) Edema (Acute) Medical History Acute sinusitis Atrial fibrillation, chronic Chronic anticoagulation Apixaban/Eliquis Chronic use of steroids COPD (chronic obstructive pulmonary disease) Daily consumption of alcohol Was six beer per day. Changed to 2 beers and two mixed drinks per day in March 2020. GERD (gastroesophageal reflux disease) Gout Headache Hip pain, right History of CHF (congestive heart failure) Hypertension Obesity (BMI 30.0-34.9) Skin tear of forearm without complication Sore throat Surgical History History of appendectomy History of arthroscopy of right knee History of cataract surgery both, [id number] History of esophagogastroduodenoscopy (EGD) 05/24/2021 History of herniorrhaphy Umbilical History of herniorrhaphy Inguinal History of repair of right rotator cuff History of tonsillectomy Family History Mother Myocardial infarction, Onset Age: 78 High blood pressure Father Dementia Brother Myocardial infarction Schizoaffective disorder Social History Smoking Status: Never smoker Alcohol Intake Frequency: 2+ drinks per day Substance Use: does not use Exam Narrative Narrative: Narrative: General Limitations: no limitations General appearance: Present alert and in no apparent distress Head Head: Present atraumatic and normocephalic ENT ENT: Present normal oropharynx and mucous membranes moist Chest Chest: Present normal inspection and symmetric chest wall rise Respiratory Respiratory: Present normal lung sounds bilaterally; Absent respiratory distress, accessory muscle use or decreased breath sounds Cardiovascular Cardiovascular: Present regular rate, normal rhythm, +S1, +S2 and other (2+ B/L radial pulse); Absent systolic murmur or diastolic murmur Adbominal Abdominal: Present soft and normal bowel sounds; Absent distention or tenderness Extremities Extremities: Absent pedal edema Neurological Neurological: Present alert, oriented X3 and other (NIHSS 0) Psychiatric Psychiatric: Present normal affect Skin Skin: Present warm (WNL) and dry Course Vital Signs Vital signs: Vital Signs Temperature 97.3 F 06/03/21 18:01 Pulse Rate 66 06/03/21 18:01 Respiratory Rate 16 06/03/21 18:01 Blood Pressure 149/78 06/03/21 18:01 Pulse Oximetry (%) 100 06/03/21 18:01 Temperature 97.3 F 06/03/21 18:01 Pulse Rate 58 L 06/03/21 21:31 Respiratory Rate 15 06/03/21 21:31 Blood Pressure 137/79 06/03/21 21:31 Pulse Oximetry (%) 100 06/03/21 21:31 MDM MDM Narrative Medical decision making narrative: Narrative: 86 yo M w/ h/o HTN, AF on eliquis, CHF, [place] palsy p/w a resolved episode of confusion and lightheadedness. DDx - CVA, arrhythmia, metabolic/electrolyte d/o, endocrine d/o, arrhythmia, seizure d/o Pt presented clinically stable, in NAD. His NIHSS on arrival was 0. EKG showed a fib w/ normal rate, no evidence of ischemia. CMP was unremarkable, CBC showed no significant anemia or leukocytosis. CT head was negative for bleed, mass effect. There was nothing to suggest an infectious process such as fever, meningeal signs, encephalopathy. However, he had been seen at [facility] w/ a very similar complaint and per records there was Dx'd w/ TIA although MRI was negative. Therefore I d/w teleneuro, Dr Rose, who felt this could still be a CVA vs seizure. He recommended admission for MRI, MRA, carotid duplex and felt that an EEG could be done as an outpt if the above W/U was negative. Pt was then accepted by Dr Johnson for admission. Lab Data Lab results reviewed: Yes I reviewed the patient's lab results. Result diagrams: 06/03/21 18:26 06/03/21 18:26 Labs: Lab Results 06/03/21 06/03/21 06/03/21 Range/Units 18:26 18:26 20:30 WBC 9.4 (4.5-11.0) K/mcL RBC 4.08 L (4.63-6.08) M/mcL Hgb 14.0 (13.7-17.5) g/dL Hct 39.6 L (40.1-51.0) % MCV 97.1 (80.0-100.0) fL MCH 34.3 H (26.0-34.0) pg MCHC 35.4 (31.0-36.0) g/dL RDW 13.2 (11.5-14.5) % Plt Count 177 (140-440) K/mcL MPV 10.4 (7.4-10.4) fL Neut % (Auto) 80.6 H (38.0-78.0) % Lymph % (Auto) 12.9 L (15.5-49.0) % [place] % (Auto) 6.3 (1.0-12.0) % Eos % (Auto) 0.1 (0.0-7.0) % Baso % (Auto) 0.1 (0.0-2.0) % Lymph # (Auto) 1.21 L (1.50-4.80) K/mcL [place] # (Auto) 0.59 (0.10-0.90) K/mcL Eos # (Auto) 0.01 (0.00-0.70) K/mcL Baso # (Auto) 0.01 (0.00-0.30) K/mcL Absolute Neutrophils 7.56 (1.80-8.00) K/mcL Sodium 134 (133-145) mmol/L Potassium 4.3 (3.3-5.1) mmol/L Chloride 96 (96-108) mmol/L Carbon Dioxide 25 (22-30) mmol/L Anion Gap 13.0 (8.0-16.0) BUN 26 H (8-23) mg/dL Creatinine 1.5 H (0.7-1.2) mg/dL GFR Calculation 42 Glucose 102 (70-105) mg/dL Calcium 9.1 (8.6-10.4) mg/dL Total Bilirubin 0.6 (0.1-1.0) mg/dL AST 30 (<40) U/L ALT 23 (<40) U/L Alkaline Phosphatase 94 (39-117) U/L Total Protein 6.5 (5.9-8.4) gm/dL Albumin 3.9 (3.2-5.2) gm/dL Globulin 2.6 (2.2-3.7) gm/dL Albumin/Globulin Ratio 1.5 (1.0-2.3) TSH 2.37 (0.27-5.01) uIU/mL Thyroxine (T4) 4.6 L (5.0-12.0) ug/dl Urine Color Yellow Urine Appearance Clear (Clear) Urine pH 7.0 (5.0-9.0) Ur Specific [place] 1.008 (1.000-1.035) Urine Protein Negative (Negative) mg/dL Urine Glucose (UA) Negative (Negative) mg/dL Urine Ketones Negative (Negative) mg/dL Urine Occult Blood Negative (Negative) mg/dL Urine Nitrate Negative (Negative) Urine Bilirubin Negative (Negative) mg/dL Urine Urobilinogen Negative mg/dL Ur Leukocyte Esterase Negative (Negative) /uL Ur Culture Indicated? No EKG Data EKG #1: EKG attestation: Yes I reviewed and interpreted this EKG. and Yes There are no EKG findings of acute coronary syndrome EKG results narrative: A fib rate of 71 No ND interval QRS, QT, QTc intervals WNL No STEMI Similar to previous Discharge Plan Patient/Caregiver Discharge Instructions Pt seen by [employer]/PA only: No Clinical Impression: Lightheadedness, Acute confusion, Atrial fibrillation, chronic, History of CHF (congestive heart failure), COPD (chronic obstructive pulmonary disease) Patient Disposition: Xfer As Inpt ([facility]) Condition: Fair Follow up with: Randall Orozco MD [Primary Care Provider] - Prescriptions: No Action simvastatin 10 mg tablet 20 mg PO QHS 0RF atenolol 25 mg tablet 25 mg PO QDAY Qty: 90 1RF methylprednisolone 4 mg tablet 4 mg PO QDAY Qty: 90 1RF febuxostat 80 mg tablet 40 mg PO QDAY 90 Days Qty: 45 3RF spironolactone 25 mg tablet 25 mg PO QAM Qty: 90 1RF omeprazole 20 mg capsule,delayed release(DR/EC) 40 mg PO QDAY 0RF Eliquis 5 mg tablet 5 mg PO BID 0RF furosemide 40 mg tablet 80 mg PO QAM 0RF cephalexin 500 mg capsule 500 mg PO tid 10 Days Qty: 30 0RF Spiriva with HandiHaler 18 mcg Capsule, W/Inhalation Device 1 cap INHALATION QDAY 0RF apixaban 2.5 mg Tablet 2.5 mg PO BID 0RF
[2021-06-03 18:54] LABS: Basophils # (Auto) 0.01 K/mcL (0.00-0.30); Basophils % (Auto) 0.1 % (0.0-2.0); Eosinophils # (Auto) 0.01 K/mcL (0.00-0.70); Eosinophils % (Auto) 0.1 % (0.0-7.0); Hematocrit 39.6 % (40.1-51.0); Lymphocytes # (Auto) 1.21 K/mcL (1.50-4.80); Lymphocytes % (Auto) 12.9 % (15.5-49.0); Mean Cell Volume 97.1 fL (80.0-100.0); Mean Corpuscular HGB Conc 35.4 g/dL (31.0-36.0); Mean Platelet Volume 10.4 fL (7.4-10.4); Monocytes # (Auto) 0.59 K/mcL (0.10-0.90); Monocytes % (Auto) 6.3 % (1.0-12.0); Neutrophils % (Auto) 80.6 % (38.0-78.0); Platelet Count 177 K/mcL (140-440); RBC 4.08 M/mcL (4.63-6.08); Red Cell Distribution Width 13.2 % (11.5-14.5); WBC 9.4 K/mcL (4.5-11.0)
[2021-06-03 19:39] LABS: T4 (Thyroxine) 4.6 ug/dl (5.0-12.0); Thyroid Stimulating Hormone 2.37 uIU/mL (0.27-5.01)
[2021-06-03 19:41] LABS: ALT/SGPT 23 U/L (<40); AST/SGOT 30 U/L (<40); Albumin 3.9 gm/dL (3.2-5.2); Albumin/Globulin Ratio 1.5 (1.0-2.3); Alkaline Phosphatase 94 U/L (39-117); Bilirubin,Total 0.6 mg/dL (0.1-1.0); Blood Urea Nitrogen 26 mg/dL (8-23); Calcium 9.1 mg/dL (8.6-10.4); Carbon Dioxide 25 mmol/L (22-30); Chloride 96 mmol/L (96-108); Globulin 2.6 gm/dL (2.2-3.7); Glomerular Filtration Rate 42; Glucose 102 mg/dL (70-105)
[2021-06-03 21:31] LABS: Appearance,Urine CLEAR (Clear); Bilirubin,Urine Negative (Negative); Color,Urine YELLOW; Culture Indicated,Urine No; Glucose,Urine (UA) Negative (Negative); Ketones,Urine Negative (Negative); Leukocyte Esterase,Urine Negative /uL (Negative); Nitrate,Urine Negative (Negative); Protein,Urine Negative (Negative); Specific Gravity,Urine 1.008 (1.000-1.035); Urine Blood Negative (Negative); Urobilinogen,Urine Negative
--- NOTE | 2021-06-03 21:56 | Internal Med History&Physical ---
HPI History of Present Illness Patient information: Note initiated : 06/03/21 at 9:54 pm Service Date, if different from initiated Date: [] Patient: Isaac Conde 86 y/o M admitted on for Dizzy and confusion. Chief Complaint: [] History of present illness: Mr. 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 The symptoms resolved after few minutes, the patient was at his baseline when he presented to the emergency department. Similar symptoms occurred recently prompting evaluation at [facility], after a CT and MRI stroke work-up with the patient was reportedly told that he was dehydrated. Shon monk says that his symptoms have been occurring intermittently and are causing him to be concerned. In addition the patient has been having difficulty with swallowing. At the [facility] ED the patient underwent a CT head without contrast which did not show any acute changes. The patient was found to have an acute on chronic kidney disease injury. Telestroke neurology was consulted, recommended admitting the patient for a stroke work-up and possible EEG after discharge pending work-up. Hospital medicine was consulted for admission. Review of system Constitutional: no fever, fatigue, or weight loss Eyes: no vision changes or pain Cardiovascular: no chest pain, no palpitations Respiratory: no cough or dyspnea Gastrointestinal: Difficulty swallowing, no abdominal pain, no nausea, vomiting, or diarrhea Genitourinary: no dysuria or difficulty voiding Musculoskeletal: no arthralgia or myalgia Integumentary: no skin lesion or wound Neurological: no focal weakness or numbness Psychiatric: no anxiety or depression Physical exam Head: Atraumatic, normal inspection. Eyes: normal appearance, no scleral icterus. Neck: full ROM Respiratory: no respiratory distress. Cardiovascular: normal rate and rhythm, S1, S2. GI/Abdominal: soft, nontender, no guarding. Extremities: full range of motion, nontender. Neurological: CN II-XII intact, intact motor, intact sensation. Psychiatric: normal mood. Skin: warm, normal color PFSH PFSH All Active Problems (Updated 04/21/22 @ 21:38 by Matt Nuñez MD) Lightheadedness (Acute) Acute confusion (Acute) Parotid gland enlargement (Acute) Dysphagia (Acute) Hip pain, right (Acute) Hypertension (Chronic) Headache (Acute) Acute sinusitis (Acute) GERD (gastroesophageal reflux disease) (Chronic) Skin tear of forearm without complication (Acute) Sore throat (Acute) Chronic use of steroids (Chronic) Gout (Chronic) UTI (urinary tract infection) (Acute) COPD (chronic obstructive pulmonary disease) (Acute) Atrial fibrillation, chronic (Chronic) History of CHF (congestive heart failure) (Chronic) Obesity (BMI 30.0-34.9) (Acute) Daily consumption of alcohol (Acute) Chronic anticoagulation (Acute) Sepsis (Acute) Hypokalemia (Acute) Acute renal failure (ARF) (Acute) Hyponatremia (Acute) Hypermagnesemia (Acute) Elevated brain natriuretic peptide (BNP) level (Acute) Head injury, acute (Acute) Chronic anticoagulation (Acute) Multiple skin tears (Acute) Edema (Acute) Medical History Acute sinusitis Atrial fibrillation, chronic Chronic anticoagulation Apixaban/Eliquis Chronic use of steroids COPD (chronic obstructive pulmonary disease) Daily consumption of alcohol Was six beer per day. Changed to 2 beers and two mixed drinks per day in March 2020. GERD (gastroesophageal reflux disease) Gout Headache Hip pain, right History of CHF (congestive heart failure) Hypertension Obesity (BMI 30.0-34.9) Skin tear of forearm without complication Sore throat Surgical History History of appendectomy History of arthroscopy of right knee History of cataract surgery both, [id number] History of esophagogastroduodenoscopy (EGD) 05/24/2021 History of herniorrhaphy Umbilical History of herniorrhaphy Inguinal History of repair of right rotator cuff History of tonsillectomy Family History Mother Myocardial infarction, Onset Age: 78 High blood pressure Father Dementia Brother Myocardial infarction Schizoaffective disorder Social History household members: alone housing: house lives independently: Yes marital status: occupational status: retired smoking status: Former smoker smoking status stop date: 02/13/79 alcohol intake frequency: 2+ drinks per day substance use type: does not use additional history: Social history: Patient quit smoking in the early drinks 4-6 drinks of alcohol per night but lately has cut down to 3. Uses a cane to ambulate sometimes a walker in the middle the night. By himself. MEDS/ALLERGIES Home Medications and Allergies Home Medications Medication Instructions Recorded Confirmed Type tiotropium bromide 18 mcg capsule 1 cap INHALATION QDAY 04/11/20 06/04/21 History with inhalation device (Spiriva with HandiHaler) simvastatin 10 mg tablet 20 mg PO QHS tab 12/24/20 06/04/21 History atenolol 25 mg tablet 25 mg PO QDAY #90 tab 01/01/21 06/04/21 Rx omeprazole 20 mg capsule,delayed 40 mg PO QDAY cap 02/02/21 06/04/21 History release methylprednisolone 4 mg tablet 4 mg PO QDAY #90 tab 02/16/21 06/04/21 Rx febuxostat 80 mg tablet 40 mg PO QDAY 90 Days #45 tab 03/17/21 06/04/21 Rx spironolactone 25 mg tablet 25 mg PO QAM #90 tab 03/23/21 06/04/21 Rx furosemide 40 mg tablet 40 mg PO BID tab 05/05/21 06/04/21 History cephalexin 500 mg capsule 500 mg PO tid 10 Days #30 cap 05/25/21 06/04/21 Rx apixaban 2.5 mg tablet 2.5 mg PO BID 06/03/21 06/04/21 History Allergies Allergy/AdvReac Type Severity Reaction Status Date / Time No Known Drug Allergies Allergy Verified 05/31/21 13:47 EXAM Constitutional Vitals: Temp Pulse Resp BP Pulse Ox 97.3 F 58 L 15 137/79 100 06/03/21 18:01 06/03/21 21:31 06/03/21 21:31 06/03/21 21:31 06/03/21 21:31 DATA Data Completed and Pending Labs: Labs from last 24 hours 06/03/21 06/03/21 06/03/21 20:30 18:26 18:26 WBC 9.4 RBC 4.08 L Hgb 14.0 Hct 39.6 L MCV 97.1 MCH 34.3 H MCHC 35.4 RDW 13.2 Plt Count 177 MPV 10.4 Neut % (Auto) 80.6 H Lymph % (Auto) 12.9 L Ray % (Auto) 6.3 Eos % (Auto) 0.1 Baso % (Auto) 0.1 Lymph # (Auto) 1.21 L Ray # (Auto) 0.59 Eos # (Auto) 0.01 Baso # (Auto) 0.01 Absolute Neutrophils 7.56 Sodium 134 Potassium 4.3 Chloride 96 Carbon Dioxide 25 Anion Gap 13.0 BUN 26 H Creatinine 1.5 H GFR Calculation 42 Glucose 102 Calcium 9.1 Total Bilirubin 0.6 AST 30 ALT 23 Alkaline Phosphatase 94 Total Protein 6.5 Albumin 3.9 Globulin 2.6 Albumin/Globulin Ratio 1.5 TSH 2.37 Thyroxine (T4) 4.6 L Urine Color Yellow Urine Appearance Clear Urine pH 7.0 Ur Specific [place] 1.008 Urine Protein Negative Urine Glucose (UA) Negative Urine Ketones Negative Urine Occult Blood Negative Urine Nitrate Negative Urine Bilirubin Negative Urine Urobilinogen Negative Ur Leukocyte Esterase Negative Ur Culture Indicated? No A/P Narrative A/P Narrative: Assessment: 86 year old male with a history of hypertension, hyperlipidemia, atrial fibrillation on Eliquis, HFpEF, COPD, mild pulmonary hypertension, CKD stage 3a, duodenal mass (biopsy positive for gastric metaplasia) admitted for further evaluation of an episode of acute confusion and concern for possible stroke vs TIA. The patient also has a WILLIAM on CKD. #Resolved acute encephalopathy and vertigo #Concern for possible ischemic stroke vs TIA #Acute on chronic kidney disease stage 3a injury -likely prerenal WILLIAM #Atrial fibrillation on low dose Eliquis #Dysphagia #Hypertension #Hyperlipidemia #COPD, stable #Pulmonary hypertension, mild #HFpEF, stable #Gout #Duodenal mass (biopsy positive for gastric metaplasia) Plan -Admit to observation for stroke/TIA workup. -MRI and MRA head. -Bilateral carotid Doppler. -Transthoracic echocardiogram. -Lipid panel and hemoglobin A1c. -Neuro checks and NIHSS. -Eliquis 5 mg BID. -Atorvastatin 40 mg daily. -IV fluid, hold home diuretics for now. -Permissive blood pressure. -Consider CT neck to evaluate for difficulty swallowing. -Home medication reconciliation then resume other important medications. -media monitor. -PT consult. -Speech therapy consult. -Regular diet. -DVT prophylaxis: heparin SQ -Disposition: home after stroke workup, may need to decrease diuretic dose. Consider outpatient EEG per neurology. Time Spent With Patient Time: Total time spent is greater than 50% in coordination of care (as documented) at patient's floor/unit and/or counseling patient:
[2021-06-03] MEDS ORDERED: 0.9 % SODIUM CHLORIDE 1,000 ML IV ONE (23:53)
[2021-06-03] MEDS ORDERED: ACETAMINOPHEN 325 MG TABLET PO PRN (23:53)
[2021-06-03] MEDS ORDERED: IPRATROPIUM/ALBUTEROL 3 ML AMPUL.NEB NEB PRN (23:53)
[2021-06-03] MEDS ORDERED: ONDANSETRON 4 MG/2 ML VIAL IV PRN (23:53)
--- NOTE | 2021-06-04 04:22 | Cat Scan Report ---
CLINICAL INFORMATION: Confusion COMPARISON: 06/09/2020 TECHNIQUE: 2.5 mm helical slices were obtained in the skull base to vertex. Following reconstruction, axial reformatted images were reviewed at bone and parenchymal windows. The exam was performed using radiation dose optimization techniques including, but not limited to, automated exposure control, adjustment of the mA and/or kV according to patient size and use of iterative reconstruction technique. FINDINGS: The ventricles, sulci, fissures, and cisterns are symmetrically enlarged compatible with mild age-related atrophy. No extra-axial fluid collections are identified. Mild patchy chronic ischemic changes, in the deep cerebral white matter, are expected for age. Moderate region of encephalomalacia in the anterior left temporal lobe again noted likely representing a remote infarct. There is no hemorrhage, mass effect, or edema. Bone windows show no osseous abnormality. IMPRESSION: Mild atrophy and chronic ischemic changes in the deep cerebral white matter-expected for age. Moderate encephalomalacia left anterior temporal lobe stable. No acute findings Interpreted and Authenticated by: Durga Woo 06/04/21
[2021-06-04] MEDS: 0.9 % SODIUM CHLORIDE 10 ML SYRINGE IV SCH ×3 (05:59→20:51)
[2021-06-04 06:20] LABS: Basophils # (Auto) 0.02 K/mcL (0.00-0.30); Basophils % (Auto) 0.3 % (0.0-2.0); Eosinophils # (Auto) 0.04 K/mcL (0.00-0.70); Eosinophils % (Auto) 0.5 % (0.0-7.0); Hematocrit 36.6 % (40.1-51.0); Hemoglobin 13.2 g/dL (13.7-17.5); Lymphocytes # (Auto) 1.32 K/mcL (1.50-4.80); Lymphocytes % (Auto) 16.9 % (15.5-49.0); Mean Cell Volume 97.1 fL (80.0-100.0); Mean Corpuscular HGB Conc 36.1 g/dL (31.0-36.0); Mean Platelet Volume 10.2 fL (7.4-10.4); Monocytes # (Auto) 0.63 K/mcL (0.10-0.90); Monocytes % (Auto) 8.1 % (1.0-12.0); Neutrophils % (Auto) 74.2 % (38.0-78.0); Platelet Count 155 K/mcL (140-440); RBC 3.77 M/mcL (4.63-6.08); Red Cell Distribution Width 13.2 % (11.5-14.5); WBC 7.8 K/mcL (4.5-11.0)
[2021-06-04 06:31] LABS: Estimated Average Glucose(eAG) 114 mg/dL; Hemoglobin A1C 5.6 % Hgb (4.0-6.0)
[2021-06-04 06:40] LABS: ALT/SGPT 19 U/L (<40); AST/SGOT 22 U/L (<40); Albumin 3.3 gm/dL (3.2-5.2); Albumin/Globulin Ratio 1.4 (1.0-2.3); Alkaline Phosphatase 75 U/L (39-117); Bilirubin,Direct 0.3 mg/dL (<0.3); Bilirubin,Total 0.9 mg/dL (0.1-1.0); Blood Urea Nitrogen 21 mg/dL (8-23); Calcium 8.9 mg/dL (8.6-10.4); Carbon Dioxide 25 mmol/L (22-30); Chloride 99 mmol/L (96-108); Globulin 2.4 gm/dL (2.2-3.7); Glomerular Filtration Rate 45; Glucose 98 mg/dL (70-105); HDL Cholesterol 48 mg/dL (>40); LDL Cholesterol,Calculated 56 mg/dL (<100); Lactate Dehydrogenase 220 U/L (135-225); Non-HDL Cholesterol 94 mg/dL (<130); Phosphorous 2.5 mg/dL (2.5-4.5); Triglycerides 193 mg/dL (<150); Uric Acid 5.9 mg/dL (2.5-8.0)
--- NOTE | 2021-06-04 07:29 | EKG ---
[facility] Test Date: 2021-06-03 Pat Name: Isaac Conde Department: ED Room: Gender: Male Member Services Coordinator: : 1935 Requested By: Matt Nuñez Order Number: [id number] Reading MD: Leoncio Cox Measurements Intervals [place] Rate: 72 P: 0 KS: 44 QRS: 20 QRSD: 99 T: 62 QT: 409 QTc: 448 Interpretive Statements Atrial fibrillation Artifact Wandering baseline Electronically Signed On 06-04-2021 7:29:21 PDT by Leoncio Cox /store/M0/[id number]
--- NOTE | 2021-06-04 07:29 | EKG ---
[facility] Test Date: 2021-06-03 Pat Name: Isaac Conde Department: [facility] Room: 108 Gender: Male Edge Blacker: ALIDA : 1935 Requested By: Leo Johnson Order Number: [id number] Reading MD: Leoncio Cox Measurements Intervals [place] Rate: 71 P: MD: QRS: 31 QRSD: 89 T: 55 QT: 414 QTc: 450 Interpretive Statements Atrial fibrillation Ventricular premature complex Low voltage, precordial leads Electronically Signed On 06-04-2021 7:29:31 PDT by Leoncio Cox /[facility] [place]/M0/[id number]/[id number]
[2021-06-04] MEDS: APIXABAN 5 MG TABLET PO SCH ×2 (08:18→20:51)
[2021-06-04] MEDS: ATORVASTATIN 40 MG TABLET PO SCH (08:18)
[2021-06-04] MEDS: DOCUSATE SODIUM 100 MG CAPSULE PO SCH ×2 (08:19→20:04)
[2021-06-04] MEDS: TIOTROPIUM BROMIDE 18 MCG INHALANT INH SCH (09:49)
--- NOTE | 2021-06-04 10:55 | Ultrasound Report ---
CLINICAL INFORMATION: Dizziness and confusion COMPARISON: None. TECHNIQUE: Spectral Doppler velocity measurements were obtained in the proximal, mid and distal common and internal carotid, both vertebral and proximal external carotid arteries bilaterally. Supplemental color and power Doppler imaging was also obtained to optimize stenosis detection. In reporting, any internal carotid stenosis was indirectly quantified comparing the distal internal carotid velocity. For ratio comparison, the internal carotid artery, at the level of stenosis, was utilized in the numerator and the normal distal internal carotid artery velocity was utilized as the denominator. Velocities are validated with angiographic measurements extrapolated from diameter data - as defined by the Society of Radiologists in Ultrasound Consensus Conference .Radiology 2003; 229; 340 - 346. FINDINGS: See worksheet by the technologist for velocities in PACS IMPRESSION: 1. 50% stenosis of the proximal right internal carotid artery. The right common and external carotid arteries are widely patent. 2. The left common, internal and external carotid arteries are widely patent. There is fibrofatty calcific plaque in both carotid bifurcations 3. Antegrade flow present in both vertebral arteries Please correlate with CTA CT Angiography or MRA MR Angiography if surgery is contemplated. Interpreted and Authenticated by: Durga Woo 06/04/21
--- NOTE | 2021-06-04 12:48 | Magnetic Resonance Report ---
CLINICAL INFORMATION: Dizziness and confusion COMPARISON: None. TECHNIQUE:Sagittal T1 FLAIR, T2 FLAIR propeller, diffusion, and ADC weighted images were acquired. FINDINGS: The ventricles, sulci, fissures and cisterns are symmetrically enlarged compatible with moderate age-related atrophy-no extra-axial fluid collection or mass identified. Chronic ischemic changes scattered throughout the cerebral white matter expected for age. There is a 3 mm acute nonhemorrhagic lacunar infarct within the cortex of the posterior right parietal lobe near vertex. No other acute findings.. IMPRESSION: 3 mm acute nonhemorrhagic lacunar infarct in the posterior right parietal cortex near vertex Moderate atrophy and chronic ischemic changes scattered within the cerebral white matter-expected for age. Interpreted and Authenticated by: Durga Woo 06/04/21
--- NOTE | 2021-06-04 13:17 | Magnetic Resonance Report ---
CLINICAL INFORMATION: Acute nonhemorrhagic lacunar infarct in the right parietal cortex near vertex COMPARISON: None. TECHNIQUE: 3D [id number] SPGR was used to study the cerebral vasculature. FINDINGS: The intracranial internal carotid, vertebral, basilar, both anterior, middle and posterior cerebral arteries are normal in contour and caliber and signal without occlusion, significant stenosis or other pathology. IMPRESSION: Normal intracerebral arterial vasculature Interpreted and Authenticated by: Durga Woo 06/04/21
[2021-06-04] MEDS ORDERED: SENNOSIDES 1 TABLET PO SCH (21:00)
[2021-06-04] MEDS ORDERED: SIMVASTATIN 10 MG TABLET PO SCH (21:00)
[2021-06-05] MEDS: 0.9 % SODIUM CHLORIDE 10 ML SYRINGE IV SCH (05:55)
[2021-06-05] MEDS: ATORVASTATIN 40 MG TABLET PO SCH (08:24)
[2021-06-05] MEDS: APIXABAN 5 MG TABLET PO SCH (08:24)
[2021-06-05] MEDS: DOCUSATE SODIUM 100 MG CAPSULE PO SCH (08:25)
[2021-06-05 08:49] LABS: Albumin 3.1 gm/dL (3.2-5.2); Blood Urea Nitrogen 16 mg/dL (8-23); Calcium 8.8 mg/dL (8.6-10.4); Carbon Dioxide 26 mmol/L (22-30); Chloride 100 mmol/L (96-108); Glomerular Filtration Rate 55; Glucose 104 mg/dL (70-105); Phosphorous 3.4 mg/dL (2.5-4.5)
[2021-06-05] MEDS ORDERED: ATENOLOL 25 MG TABLET PO SCH (09:00)
[2021-06-05] MEDS ORDERED: OMEPRAZOLE 20 MG CAPSULE PO SCH (09:00)
[2021-06-05] MEDS: TIOTROPIUM BROMIDE 18 MCG INHALANT INH SCH (09:47)
--- NOTE | 2021-06-05 11:01 | Discharge Summary ---
Discharge Provider Provider Patient information: Note initiated : 06/05/21 at 10:53 am Service Date, if different from initiated Date: [] Patient: Isaac Conde 86 y/o M admitted on 06/03/21 for Dizzy and confusion. Chief Complaint: [] Date of admission: 06/03/21 23:37 Discharge date: 06/05/21 Primary care physician: Randall Orozco MD Consults: 06/03/21 Consult to Physician [CONS] Stat Comment: Consulting Provider: Leo Johnson Reason For Exam: Physician to Consult Discharge Meds Discharge Medications Home Medications tiotropium bromide 18 mcg capsule with inhalation device (Spiriva with HandiHaler) 1 cap INHALATION QDAY 04/11/20 [History Confirmed 06/04/21 Last Taken 06/03/21 08:00] atenolol 25 mg tablet 25 mg PO QDAY #90 tab 01/01/21 [Rx Confirmed 06/04/21 Last Taken 06/02/21 20:00] omeprazole 20 mg capsule,delayed release 40 mg PO QDAY cap 02/02/21 [History Confirmed 06/04/21 Last Taken 06/03/21 07:00] methylprednisolone 4 mg tablet 4 mg PO QDAY #90 tab 02/16/21 [Rx Confirmed 06/04/21 Last Taken 06/03/21 07:00] febuxostat 80 mg tablet 40 mg PO QDAY 90 Days #45 tab 03/17/21 [Rx Confirmed 06/04/21 Last Taken 06/03/21 08:00] cephalexin 500 mg capsule 500 mg PO tid 10 Days #30 cap 05/25/21 [Rx Confirmed 06/04/21 Last Taken 06/03/21 12:00] apixaban 5 mg tablet (Eliquis) 5 mg PO BID #90 tab 06/05/21 [Rx Last Taken Unknown] atorvastatin 40 mg tablet 40 mg PO DAILY #60 tab 06/05/21 [Rx Last Taken Unknown] furosemide 40 mg tablet (Lasix) 40 mg PO QAM #60 tab 06/05/21 [Rx Last Taken Unknown] potassium chloride 10 mEq tablet,extended release 10 meq PO QDAY #60 tab 06/05/21 [Rx Last Taken Unknown] COURSE Hospital Course Hospital course: Mr. 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 The symptoms resolved after few minutes, the patient was at his baseline when he presented to the emergency department. Similar symptoms occurred recently prompting evaluation at [facility], after a CT and MRI stroke work-up with the patient was reportedly told that he was dehydrated. Patient says that his symptoms have been occurring intermittently and are causing him to be concerned. In addition the patient has been having difficulty with swallowing. At the [facility] ED the patient underwent a CT head without contrast which did not show any acute changes. The patient was found to have an acute on chronic kidney disease injury. Telestroke neurology was consulted, recommended admitting the patient for a stroke work-up and possible EEG after discharge pending work-up. Hospital medicine was consulted for admission. 06/05 Patient is independent with activities of daily living, able to walk the hospital hallways independently. MRI brain showed a 3 mm acute nonhemorrhagic lacunar infarct in the posterior right parietal cortex. MRI brain did not show any hemodynamically significant stenosis, bilateral carotid Doppler showed 50% stenosis of the proximal right internal carotid artery, the right common and external carotid arteries were widely patent. Left common internal and external carotid arteries were widely patent. Anterior grade flow present in both vertebral arteries. Transthoracic echocardiogram showed LVEF 60 to 65%, normal right ventricular systolic function, severely dilated left and right atria, estimated pulmonary artery pressure 35 to 40 mmHg, mild aortic stenosis. Discussed speech therapy consult which would not be available until Monday, the patient prefers to discharge to home today and follow-up with outpatient speech therapy. Discussed a modified diet at discharge, mildly thick fluids given dysphagia symptoms. Renal function has improved with IV fluids and holding home Lasix and spironolactone. Increased Eliquis to 5 mg twice daily, transition from simvastatin to atorvastatin for high potency statin therapy. Discharged on Lasix 40 mg once a day and low-dose potassium supplementation. Prior to admission the patient was on Lasix 40 mg twice a day and spironolactone 25 mg daily. The patient is not drinking much fluid given dysphagia symptoms therefore prone to develop hypovolemia which is why I decreased the dose of diuretic. Patient's volume status is euvolemic on discharge. Discharged to home with family. Outpatient speech therapy referral, modified diet for dysphagia at discharge. Follow-up with primary care provider for further management, recommend repeating renal function panel at follow-up. Physical exam Head: Atraumatic, normal inspection. Eyes: normal appearance, no scleral icterus. Neck: full ROM Respiratory: no respiratory distress. Cardiovascular: normal rate and rhythm, S1, S2. GI/Abdominal: soft, nontender, no guarding. Extremities: full range of motion, nontender. Neurological: CN II-XII intact, intact motor, intact sensation. Psychiatric: normal mood. 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 Secondary discharge diagnosis: Dysphagia Hypovolemia Time Spent with Patient Time attestation: Total time spent providing and/or coordinating discharge services: EXAM Constitutional Vitals: Temp Pulse Resp BP Pulse Ox 98.2 F 88 20 116/69 91 06/05/21 07:02 06/05/21 08:00 06/05/21 07:02 06/05/21 08:00 06/05/21 07:02 Discharge Data Data Completed and Pending Labs on day of discharge: Labs from last 24 hours 06/05/21 06/05/21 07:45 07:36 Hgb 12.7 L Sodium 135 Potassium 3.7 Chloride 100 Carbon Dioxide 26 Anion Gap 9.0 BUN 16 Creatinine 1.2 GFR Calculation 55 Glucose 104 Calcium 8.8 Phosphorus 3.4 Albumin 3.1 L Discharge Plan Patient/Caregiver Discharge Instructions Activity: increase activity as tolerated Diet: Dysphagia Level 6 Soft & Bite-Sized Foods and Thickened Liquids Prescriptions: New atorvastatin 40 mg Tablet 40 mg PO DAILY Qty: 60 6RF Eliquis 5 mg Tablet 5 mg PO BID Qty: 90 8RF furosemide [Lasix] 40 mg tablet 40 mg PO QAM Qty: 60 6RF potassium chloride 10 mEq tablet extended release 10 meq PO QDAY Qty: 60 6RF Continued atenolol 25 mg tablet 25 mg PO QDAY Qty: 90 1RF methylprednisolone 4 mg tablet 4 mg PO QDAY Qty: 90 1RF febuxostat 80 mg tablet 40 mg PO QDAY 90 Days Qty: 45 3RF omeprazole 20 mg capsule,delayed release(DR/EC) 40 mg PO QDAY 0RF cephalexin 500 mg capsule 500 mg PO tid 10 Days Qty: 30 0RF Spiriva with HandiHaler 18 mcg Capsule, W/Inhalation Device 1 cap INHALATION QDAY 0RF Discontinued simvastatin 10 mg tablet 20 mg PO QHS 0RF spironolactone 25 mg tablet 25 mg PO QAM Qty: 90 1RF furosemide 40 mg tablet 40 mg PO BID 0RF apixaban 2.5 mg Tablet 2.5 mg PO BID 0RF Other Ambulatory Orders: ST Discharge Order (Routine) Location: None Selected Ordered By: Leo Johnson Follow Up Plan Follow up with: Randall Orozco MD [Primary Care Provider] - Patient Disposition: Home, Self-Care Prognosis: Fair Overall status at discharge: patient is progressing back to baseline Discharge Orders: Discharge Order (Routine); Ordered 06/05/21 Ordered By: Leo Johnson QUALITY VTE Deep Vein Thrombosis/Pulmonary Embolism Present on Admission: No
== END 2021-06-05 12:25 | disposition home or self-care (01) ==
LOC: MEDSUR 17:55 → ED 17:55 → MEDSUR 23:38
PROVIDERS: ADMIT Internal Medicine; ATTEND Internal Medicine

== ENCOUNTER 2021-07-27 12:28 | Inpatient (IN) ==
[2021-07-27] MEDS ORDERED: 0.9 % SODIUM CHLORIDE 1,000 ML IV ONE (13:31)
[2021-07-27 14:15] LABS: Hematocrit 41.8 % (40.1-51.0); Hemoglobin 13.7 g/dL (13.7-17.5); Mean Cell Volume 99.8 fL (80.0-100.0); Mean Corpuscular HGB Conc 32.8 g/dL (31.0-36.0); Mean Platelet Volume 10.9 fL (7.4-10.4); Platelet Count 316 K/mcL (140-440); RBC 4.19 M/mcL (4.63-6.08); Red Cell Distribution Width 13.4 % (11.5-14.5); WBC 10.1 K/mcL (4.5-11.0)
[2021-07-27 14:39] LABS: Band Neutrophils % 4 % (0-10); Eosinophils % (Manual) 1 % (0-7); Lymphocytes % 10 % (15-49); Monocytes % (Manual) 6 % (1-12); Platelet Estimate NORMAL (Normal); RBC Morphology NORMAL (Normal); Segmented Neutrophils % 79 % (38-78)
--- NOTE | 2021-07-27 14:54 | Emergency Department Note ---
HPI General Chief complaint: Fall Stated complaint: Fall Time Seen by Provider: 07/27/21 12:31 Source: patient Mode of arrival: wheelchair Limitations: no limitations History of Present Illness HPI Narrative: 86-year-old male with a history of advanced COPD, hypertension, hyperlipidemia, chronic atrial fibrillation on Eliquis, alcohol abuse, dysphagia 2/2 prior CVA who presents from home for inability to care for self. He was admitted to [facility] on 07/19 -07/22/2021 for inability to swallow. He was seen by Dr. Alexis olvera at [facility] and he underwent an EGD and unsuccessful placement of an gastrostomy tube. He was then transferred to [facility] where Dr. Cleveland placed a PEG tube on 07/19/2021. During that admission he was noted to have an WILLIAM with urinary retention and a Lo catheter was placed. He was discharged home with home health, but his stepson notes that they did not come until today. For the last 5 days he has only been able to feed him approximately 1 boost daily. He has been giving him his apixaban, metoprolol, and finasteride only. His son-in-law notes that he has had frequent diarrhea. Patient denies pain with his PEG tube use. He denies abdominal pain. Denies N/V. Denies F/C/S. Has chronic lower extremity edema, but has been unable to take his furosemide to his lower extremity edema is increased. Related Data Home Medications Medication Instructions Recorded Confirmed omeprazole 20 mg capsule,delayed 40 mg PO QDAY cap 02/02/21 07/27/21 release apixaban 2.5 mg tablet (Eliquis) 2.5 mg PO BID 07/02/21 07/27/21 febuxostat 80 mg tablet 80 mg PO DAILY 07/27/21 07/27/21 finasteride 5 mg tablet 5 mg PO QDAY 07/27/21 07/27/21 metoprolol succinate 50 mg 50 mg PO BID 07/27/21 07/27/21 tablet,extended release 24 hr Previous Rx's Medication Instructions Recorded methylprednisolone 4 mg tablet 4 mg PO QDAY #90 tab 02/16/21 atorvastatin 40 mg tablet 40 mg PO DAILY #60 tab 06/05/21 potassium chloride 10 mEq 10 meq PO QDAY #60 tab 06/05/21 tablet,extended release Allergies Allergy/AdvReac Type Severity Reaction Status Date / Time No Known Drug Allergies Allergy Verified 07/27/21 12:33 Review of Systems ROS ROS Narrative: Narrative: All systems ED: reviewed and negative except as stated. ON LICENSE OF [facility] Narrative Patient History Narrative: Narrative: Medical/Surgical/Family History All Active Problems (Updated 07/27/21 @ 18:21 by Diamante Alaniz PA-C) Acute hypernatremia (Acute) Acute hypokalemia (Acute) Self-care deficit (Acute) COVID-19 virus infection (Acute) COVID (Acute) Failure to thrive in adult (Acute) Frequent falls (Acute) Chronic kidney disease (CKD) stage G3a/A1, moderately decreased glomerular filtration rate (GFR) between 45-59 mL/min/1.73 square meter and albuminuria creatinine ratio less than 30 mg/g (Acute) Acute dehydration (Acute) Dysphagia as late effect of stroke (Acute) Dysphagia (Acute) Lightheadedness (Acute) Acute confusion (Acute) Parotid gland enlargement (Acute) Dysphagia (Acute) Hip pain, right (Acute) Hypertension (Chronic) Headache (Acute) Acute sinusitis (Acute) GERD (gastroesophageal reflux disease) (Chronic) Skin tear of forearm without complication (Acute) Sore throat (Acute) Chronic use of steroids (Chronic) Gout (Chronic) UTI (urinary tract infection) (Acute) COPD (chronic obstructive pulmonary disease) (Acute) Atrial fibrillation, chronic (Chronic) History of CHF (congestive heart failure) (Chronic) Obesity (BMI 30.0-34.9) (Acute) Daily consumption of alcohol (Acute) Chronic anticoagulation (Acute) Sepsis (Acute) Hypokalemia (Acute) Acute renal failure (ARF) (Acute) Hyponatremia (Acute) Hypermagnesemia (Acute) Elevated brain natriuretic peptide (BNP) level (Acute) Head injury, acute (Acute) Chronic anticoagulation (Acute) Multiple skin tears (Acute) Edema (Acute) Medical History Acute sinusitis Atrial fibrillation, chronic Chronic anticoagulation Apixaban/Eliquis Chronic use of steroids COPD (chronic obstructive pulmonary disease) Daily consumption of alcohol Was six beer per day. Changed to 2 beers and two mixed drinks per day in March 2020. GERD (gastroesophageal reflux disease) Gout Headache Hip pain, right History of CHF (congestive heart failure) Hypertension Obesity (BMI 30.0-34.9) Skin tear of forearm without complication Sore throat Surgical History History of appendectomy History of arthroscopy of right knee History of cataract surgery both, [id number] History of esophagogastroduodenoscopy (EGD) 05/24/2021 History of herniorrhaphy Umbilical History of herniorrhaphy Inguinal History of repair of right rotator cuff History of tonsillectomy Family History Mother Myocardial infarction, Onset Age: 78 High blood pressure Father Dementia Brother Myocardial infarction Schizoaffective disorder Social History Smoking Status: Former smoker Alcohol Intake Frequency: 2+ drinks per day Substance Use: does not use Exam Narrative Narrative: General: AOx3, NAD, nontoxic appearing. Pleasant and conversant. HEENT: PERRL, EOMI, normocephalic. Dry mucous membranes. Normal facies. Chest: Symmetric, no pain to palpation Respiratory: Lungs clear to auscultation bilaterally. No respiratory distress. Unlabored breathing. Heart: Regular rate and rhythm, no murmurs/clicks/rubs. Abdomen: Non-tender, Non distended, normal bowel tones. No organomegaly. PEG tube in place with minimal brown drainage from the tube. There is no fluctuance or fluid collections. There is only mildly tender to palpation, there is some adjacent erythema. Extremities: Feet are cold and there is 3+ pitting edema bilaterally to the ankles. No venous stasis. Neuro: No focal deficits. Cranial nerves II-XII grossly normal. Skin: Warm dry, no rashes or lesions, nailbeds are cyanotic. Bilateral upper extremities with diffuse ecchymosis. No hematomas. Psych: Normal mood and affect Heme/Lymph: Bruising as described above General Limitations: no limitations Course Course Course Narrative: 86-year-old male with recent PEG tube placement on 07/19/[address] Cleveland at [facility] present for significant self-care deficits. Reevaluation(s) Reevaluation #1: Will obtain basic labs in query for renal injury given poor oral intake Obtain chest x-ray Patient will likely need admission for safe disposition plan/placement Reevaluation #2: CMP with significant elevation of his liver enzymes and hypernatremia with a sodium of 148. He also has a mild hypokalemia with a potassium of 3.0. Creatinine is 1.3. Will give IV fluids. Chest x-ray is negative Vital Signs Vital signs: Vital Signs Temperature 97.5 F 07/27/21 12:30 Respiratory Rate 16 07/27/21 12:30 Blood Pressure 114/69 07/27/21 12:30 Temperature 97.5 F 07/27/21 12:30 Pulse Rate 86 07/27/21 17:13 Respiratory Rate 25 H 07/27/21 17:28 Blood Pressure 101/68 07/27/21 17:15 Pulse Oximetry (%) 95 07/27/21 17:13 MDM MDM Narrative Medical decision making narrative: Severe dysphagia History of PEG tube placement Transaminitis Hypernatremia Self-care deficits COVID 19 infection Patient is being admitted for self-care deficits, electrolyte derangement, new onset transaminitis. I did reach out to Dr. Handy who has accepted the patient for admission. Patient is COVID-positive on admission screening. Lab Data Result diagrams: 07/27/21 12:49 07/27/21 12:49 Labs: Lab Results 07/27/21 07/27/21 07/27/21 Range/Units 12:49 12:49 15:44 WBC 10.1 (4.5-11.0) K/mcL RBC 4.19 L (4.63-6.08) M/mcL Hgb 13.7 (13.7-17.5) g/dL Hct 41.8 (40.1-51.0) % MCV 99.8 (80.0-100.0) fL MCH 32.7 (26.0-34.0) pg MCHC 32.8 (31.0-36.0) g/dL RDW 13.4 (11.5-14.5) % Plt Count 316 (140-440) K/mcL MPV 10.9 H (7.4-10.4) fL Seg Neutrophils % 79 H (38-78) % Band Neutrophils % 4 (0-10) % Lymphocytes % 10 L (15-49) % Monocytes % (Manual) 6 (1-12) % Eosinophils % (Manual) 1 (0-7) % Platelet Estimate Normal (Normal) RBC Morphology Normal (Normal) Sodium 148 H (133-145) mmol/L Potassium 3.0 L (3.3-5.1) mmol/L Chloride 104 (96-108) mmol/L Carbon Dioxide 33 H (22-30) mmol/L Anion Gap 11.0 (8.0-16.0) BUN 38 H (8-23) mg/dL Creatinine 1.3 H (0.7-1.2) mg/dL GFR Calculation 50 Glucose 90 (70-105) mg/dL Calcium 9.5 (8.6-10.4) mg/dL Total Bilirubin 1.3 H (0.1-1.0) mg/dL AST 100 H (<40) U/L ALT 94 H (<40) U/L Alkaline Phosphatase 256 H (39-117) U/L Total Protein 6.8 (5.9-8.4) gm/dL Albumin 2.9 L (3.2-5.2) gm/dL Globulin 3.9 H (2.2-3.7) gm/dL Albumin/Globulin Ratio 0.7 L (1.0-2.3) Urine Color Jessy Urine Appearance Hazy A (Clear) Urine pH 5.0 (5.0-9.0) Ur Specific [place] 1.018 (1.000-1.035) Urine Protein 30 A (Negative) mg/dL Urine Glucose (UA) Negative (Negative) mg/dL Urine Ketones 5 A (Negative) mg/dL Urine Occult Blood 0.03 (Negative) mg/dL Urine Nitrate Negative (Negative) Urine Bilirubin Negative (Negative) mg/dL Urine Urobilinogen 2.0 A mg/dL Ur Leukocyte Esterase Negative (Negative) /uL Urine RBC 20 H (0-3) /hpf Urine WBC 9 H (0-4) /hpf Ur Squamous Epith Cells < 1 (0-4) /hpf Ur Transition Epith Cell < 1 (0-2) /hpf Urine Bacteria Few A (0) /hpf Hyaline Casts 3 H (0-2) /lph Other Casts None (None) /lph Urine Mucus Few A (None) /hpf Ur Culture Indicated? Yes ED POC Tests ED POC Tests: ADOLPH - SARS Antigen Positive Discharge Plan Patient/Caregiver Discharge Instructions Pt seen by EDUCATIONAL ADVISOR/PA only: Yes Clinical Impression: Acute hypernatremia, Acute hypokalemia, Self-care deficit, COVID-19 virus in fection Patient Disposition: Xfer As Inpt ([facility]) Condition: Fair Discharge Date/Time: 07/27/21 17:50
--- NOTE | 2021-07-27 15:17 | XRay Report ---
CLINICAL INFORMATION: Trauma COMPARISON: 07/17/2020 TECHNIQUE: Portable FINDINGS: The heart size, mediastinum and pulmonary vessels are unremarkable. The lungs are clear. There are no effusions. The bones and soft tissues are within normal limits. IMPRESSION: Normal chest. Interpreted and Authenticated by: Durga Woo 07/27/21
[2021-07-27 15:34] LABS: ALT/SGPT 94 U/L (<40); AST/SGOT 100 U/L (<40); Albumin 2.9 gm/dL (3.2-5.2); Albumin/Globulin Ratio 0.7 (1.0-2.3); Alkaline Phosphatase 256 U/L (39-117); Bilirubin,Total 1.3 mg/dL (0.1-1.0); Blood Urea Nitrogen 38 mg/dL (8-23); Calcium 9.5 mg/dL (8.6-10.4); Carbon Dioxide 33 mmol/L (22-30); Chloride 104 mmol/L (96-108); Globulin 3.9 gm/dL (2.2-3.7); Glomerular Filtration Rate 50; Glucose 90 mg/dL (70-105)
[2021-07-27 16:37] LABS: Appearance,Urine HAZY (Clear); Bacteria,Urine FEW /hpf (0); Bilirubin,Urine Negative (Negative); Color,Urine AMBER; Culture Indicated,Urine Yes; Glucose,Urine (UA) Negative (Negative); Ketones,Urine 5 mg/dL (Negative); Leukocyte Esterase,Urine Negative /uL (Negative); Mucus,Urine FEW /hpf; Nitrate,Urine Negative (Negative); Protein,Urine 30 mg/dL (Negative); Specific Gravity,Urine 1.018 (1.000-1.035); Urine Blood 0.03 mg/dL (Negative); Urine Hyaline Cast 3 /lph (0-2); Urine RBC 20 /hpf (0-3); Urine Squamous Epithelial Cell < 1 /hpf (0-4); Urine Transitional Epi Cells < 1 /hpf (0-2); Urine WBC 9 /hpf (0-4)
--- NOTE | 2021-07-27 17:22 | Internal Med History&Physical ---
HPI History of Present Illness Patient information: Note initiated : 07/27/21 at 5:20 pm Service Date, if different from initiated Date: [] Patient: Isaac Conde 86 y/o M admitted on for Fall. Chief Complaint: [falls, can't feed] Chief complaint: falls, can't feed History of present illness: Mr. Conde is a 86 year old M history of dysphagia status post recent PEG tube placement, atrial fibrillation's on anticoagulants, COPD, GERD, CHF, essential hypertensions, chronic kidney disease stage III, presenting with frequent falls and unable to be fed and failure to thrive. He was recently been hospitalized in discharge from [facility] for PEG tube placement by Dr. Cleveland. He was being discharged home with home health nursing. According to patient and stepson at the bedside, he has frequent falls as well as inability to be fed and unable to get up from bed over the past week since he got discharged home. Family sent the patient's back to our ED via ambulance for further evaluations and for placement needs. Patient is unable to tolerate even the tube feeding or else he was induced episodes of diarrhea. Patient and family is willing to go to SNF if this is were indicated. Constitutional Constitutional: Present fatigue and weakness; Absent chills, excessive sweating or fever(s) EENT Eyes: Absent blurry vision, change in vision, loss of vision or other visual disturbances Ears: Absent decreased hearing or tinnitus Nose, mouth and throat: Absent abnormal hearing, dry mouth, headache(s), nasal congestion or sore throat Cardiovascular Cardiovascular: Absent chest pain, chest pain at rest, edema, irregular heart rhythm or palpatations Respiratory Respiratory: Absent cough, dyspnea or wheezing Gastrointestinal Gastrointestinal: Present dysphagia; Absent abdominal pain, constipation, diarrhea, nausea or vomiting Musculoskeletal Musculoskeletal: Absent back pain, deformity, limited range of motion, muscle cramps, muscle weakness or numbness Integumentary Integumentary: Absent lesions, rash or wounds Neurological Neurological: Absent focal weakness, headache(s) or numbness Psychiatric Psychiatric: Absent anxiety, depression or hallucinations PFSH PFSH All Active Problems (Updated 07/27/21 @ 17:37 by Ryan Handy MD) COVID (Acute) Failure to thrive in adult (Acute) Frequent falls (Acute) Chronic kidney disease (CKD) stage G3a/A1, moderately decreased glomerular filtration rate (GFR) between 45-59 mL/min/1.73 square meter and albuminuria creatinine ratio less than 30 mg/g (Acute) Acute dehydration (Acute) Dysphagia as late effect of stroke (Acute) Dysphagia (Acute) Lightheadedness (Acute) Acute confusion (Acute) Parotid gland enlargement (Acute) Dysphagia (Acute) Hip pain, right (Acute) Hypertension (Chronic) Headache (Acute) Acute sinusitis (Acute) GERD (gastroesophageal reflux disease) (Chronic) Skin tear of forearm without complication (Acute) Sore throat (Acute) Chronic use of steroids (Chronic) Gout (Chronic) UTI (urinary tract infection) (Acute) COPD (chronic obstructive pulmonary disease) (Acute) Atrial fibrillation, chronic (Chronic) History of CHF (congestive heart failure) (Chronic) Obesity (BMI 30.0-34.9) (Acute) Daily consumption of alcohol (Acute) Chronic anticoagulation (Acute) Sepsis (Acute) Hypokalemia (Acute) Acute renal failure (ARF) (Acute) Hyponatremia (Acute) Hypermagnesemia (Acute) Elevated brain natriuretic peptide (BNP) level (Acute) Head injury, acute (Acute) Chronic anticoagulation (Acute) Multiple skin tears (Acute) Edema (Acute) Medical History Acute sinusitis Atrial fibrillation, chronic Chronic anticoagulation Apixaban/Eliquis Chronic use of steroids COPD (chronic obstructive pulmonary disease) Daily consumption of alcohol Was six beer per day. Changed to 2 beers and two mixed drinks per day in March 2020. GERD (gastroesophageal reflux disease) Gout Headache Hip pain, right History of CHF (congestive heart failure) Hypertension Obesity (BMI 30.0-34.9) Skin tear of forearm without complication Sore throat Surgical History History of appendectomy History of arthroscopy of right knee History of cataract surgery both, [id number] History of esophagogastroduodenoscopy (EGD) 05/24/2021 History of herniorrhaphy Umbilical History of herniorrhaphy Inguinal History of repair of right rotator cuff History of tonsillectomy Family History Mother Myocardial infarction, Onset Age: 78 High blood pressure Father Dementia Brother Myocardial infarction Schizoaffective disorder Social History household members: alone housing: house lives independently: Yes marital status: occupational status: retired smoking status: Former smoker smoking status stop date: 02/13/79 alcohol intake frequency: 2+ drinks per day substance use type: does not use additional history: Social history: Patient quit smoking in the early s drinks 4-6 drinks of alcohol per night but lately has cut down to 3. Uses a cane to ambulate sometimes a walker in the middle the night. By himself. MEDS/ALLERGIES Home Medications and Allergies Home Medications Medication Instructions Recorded Confirmed Type omeprazole 20 mg capsule,delayed 40 mg PO QDAY cap 02/02/21 07/27/21 History release methylprednisolone 4 mg tablet 4 mg PO QDAY #90 tab 02/16/21 07/27/21 Rx atorvastatin 40 mg tablet 40 mg PO DAILY #60 tab 06/05/21 07/27/21 Rx potassium chloride 10 mEq 10 meq PO QDAY #60 tab 06/05/21 07/27/21 Rx tablet,extended release apixaban 2.5 mg tablet (Eliquis) 2.5 mg PO BID 07/02/21 07/27/21 History febuxostat 80 mg tablet 80 mg PO DAILY 07/27/21 07/27/21 History finasteride 5 mg tablet 5 mg PO QDAY 07/27/21 07/27/21 History metoprolol succinate 50 mg 50 mg PO BID 07/27/21 07/27/21 History tablet,extended release 24 hr Allergies Allergy/AdvReac Type Severity Reaction Status Date / Time No Known Drug Allergies Allergy Verified 07/27/21 12:33 EXAM Constitutional Vitals: Temp Pulse Resp BP Pulse Ox 36.4 C 86 21 105/66 95 07/27/21 12:30 07/27/21 17:13 07/27/21 17:13 07/27/21 17:00 07/27/21 17:13 General appearance: cooperative, disheveled and no acute distress Head Head exam: Present atraumatic and normocephalic Eye Eye exam: Present EOMI and PERRL ENT ENT exam: Present mucous membranes moist, normal exam and normal external ear exam Additional comments: Nasal cannula in place Neck Neck exam: Present normal inspection; Absent lymphadenopathy, tenderness or thyromegaly Respiratory Respiratory exam: Absent accessory muscle use, respiratory distress or wheezes Cardiovascular Cardiovascular exam: Present irregular rhythm; Absent JVD GI/Abdominal GI/Abdominal exam: Present normal bowel sounds and soft; Absent organomegaly or tenderness Additional comments: PEG tube in place Rectal Rectal exam: Present deferred Additional comments: Lo catheter in place Extremities Exam Extremities exam: Present full ROM, normal capillary refill, normal inspection and pedal edema; Absent tenderness Neurological Exam Neurological exam: Present alert, CN II-XII intact and oriented X3; Absent motor sensory deficit Psychiatric Psychiatric exam: Present normal affect and normal mood; Absent anxious or depressed Skin Skin exam: Present dry and intact DATA Data Completed and Pending Labs: Labs from last 24 hours 07/27/21 07/27/21 07/27/21 15:44 12:49 12:49 WBC RBC Hgb Hct MCV MCH MCHC RDW Plt Count MPV Seg Neutrophils % Band Neutrophils % Lymphocytes % Monocytes % (Manual) Eosinophils % (Manual) Platelet Estimate RBC Morphology Sodium 148 H Potassium 3.0 L Chloride 104 Carbon Dioxide 33 H Anion Gap 11.0 BUN 38 H Creatinine 1.3 H GFR Calculation 50 Glucose 90 Calcium 9.5 Total Bilirubin 1.3 H AST 100 H ALT 94 H Alkaline Phosphatase 256 H Total Protein 6.8 Albumin 2.9 L Globulin 3.9 H Albumin/Globulin Ratio 0.7 L Urine Color Jessy Urine Appearance Hazy A Urine pH 5.0 Ur Specific [employer] 1.018 Urine Protein 30 A Urine Glucose (UA) Negative Urine Ketones 5 A Urine Occult Blood 0.03 Urine Nitrate Negative Urine Bilirubin Negative Urine Urobilinogen 2.0 A Ur Leukocyte Esterase Negative Urine RBC 20 H Urine WBC 9 H Ur Squamous Epith Cells < 1 Ur Transition Epith Cell < 1 Urine Bacteria Few A Hyaline Casts 3 H Other Casts None Urine Mucus Few A Ur Culture Indicated? Yes Ethyl Alcohol Pending 07/27/21 12:49 WBC 10.1 RBC 4.19 L Hgb 13.7 Hct 41.8 MCV 99.8 MCH 32.7 MCHC 32.8 RDW 13.4 Plt Count 316 MPV 10.9 H Seg Neutrophils % 79 H Band Neutrophils % 4 Lymphocytes % 10 L Monocytes % (Manual) 6 Eosinophils % (Manual) 1 Platelet Estimate Normal RBC Morphology Normal Sodium Potassium Chloride Carbon Dioxide Anion Gap BUN Creatinine GFR Calculation Glucose Calcium Total Bilirubin AST ALT Alkaline Phosphatase Total Protein Albumin Globulin Albumin/Globulin Ratio Urine Color Urine Appearance Urine pH Ur Specific [employer] Urine Protein Urine Glucose (UA) Urine Ketones Urine Occult Blood Urine Nitrate Urine Bilirubin Urine Urobilinogen Ur Leukocyte Esterase Urine RBC Urine WBC Ur Squamous Epith Cells Ur Transition Epith Cell Urine Bacteria Hyaline Casts Other Casts Urine Mucus Ur Culture Indicated? Ethyl Alcohol A/P Assessment and plan (1) Hypertension: Status: Chronic (2) GERD (gastroesophageal reflux disease): Status: Chronic (3) COPD (chronic obstructive pulmonary disease): Status: Acute (4) Atrial fibrillation, chronic: Status: Chronic (5) History of CHF (congestive heart failure): Status: Chronic (6) Chronic anticoagulation: Status: Acute Comment: Apixaban/Eliquis (7) Hypokalemia: Status: Acute Comment: Replace K po/IV including KPO4 for phosphorous replacement Aldactone started for low K and CHF Alcoholic with poor nutritional intake (8) Hyponatremia: Status: Acute Comment: PO fluid restriction Use hyperosmolar TF (Nephro) in place of H2O to swallow Rx Stay on sodium restricted diet due to edema and probable CHF (9) Dysphagia: Status: Acute (10) Chronic kidney disease (CKD) stage G3a/A1, moderately decreased glomerular filtration rate (GFR) between 45-59 mL/min/1.73 square meter and albuminuria creatinine ratio less than 30 mg/g: Status: Acute (11) Frequent falls: Status: Acute (12) Failure to thrive in adult: Status: Acute (13) COVID: Status: Acute Narrative A/P Narrative: Assessment and Plans: 1. Dysphagia with failure to thrive: Observation med surg Dietitian consult Physical therapy Tube feeding 2. CoVID Positivity: If and when patient becomes symptomatic, will initiate CoVID specific treatment Isolation: airborne and contact 3. Atrial fibrillation: Metoprolol ER for rate control Eliquis for anticoagulation 4. CHF, stable: Metoprolol ER HCTZ 5. COPD, stable: DuoNEB NEB PRN wheezing 6. Chronic kidney disease III: Avoid nephrotoxic agents Saline lock with gentle diuretics CMP in the morning to trend kidney functions 7. Essential HTN: Metoprolol ER HCTZ 8. Hypokalemia: Potassium chloride oral replacement CMP and serum Mg level in the morning to trend 9. h/o GERD: continue oral PPI from home regimen GI ppx: continue oral PPI from home regimen DVT ppx: Eliquis Code status: DNI DNR Prognosis: stable Disposition: observation med surg; PT Time Spent With Patient Time: Total time spent is greater than 50% in coordination of care (as documented) at patient's floor/unit and/or counseling patient: Total time spent with greater than 50% in coordination of care (as documented) at patient's floor/unit and/or counseling patient:: 50 - 70 minutes
[2021-07-27] MEDS ORDERED: traZODone HCL 50 MG TABLET PO PRN (18:02)
[2021-07-27] MEDS ORDERED: ACETAMINOPHEN 325 MG TABLET PO PRN (18:02)
[2021-07-27] MEDS ORDERED: IBUPROFEN 600 MG TABLET PO PRN (18:02)
[2021-07-27] MEDS ORDERED: morphine 4 MG/ML VIAL IV PRN (18:02)
[2021-07-27] MEDS ORDERED: ONDANSETRON 4 MG/2 ML VIAL IV PRN (18:02)
[2021-07-27] MEDS ORDERED: IPRATROPIUM/ALBUTEROL 3 ML AMPUL.NEB NEB PRN (18:02)
[2021-07-27 20:25] LABS: Alcohol, Blood < 10.0 mg/dL; Alcohol,Blood < 0.010 gm/dL (<0.010)
[2021-07-27] MEDS ORDERED: SENNOSIDES 1 TABLET PO SCH (21:00)
[2021-07-27] MEDS: CHLORHEXIDINE GLUCONATE 1 ML ORAL.SOL SWABMOUTH SCH (21:38)
[2021-07-27] MEDS: METOPROLOL SUCCINATE 50 MG TAB.XL.24H PO SCH (21:39)
[2021-07-27] MEDS: DOCUSATE SODIUM 100 MG CAPSULE PO SCH (21:39)
[2021-07-27] MEDS: APIXABAN 5 MG TABLET PO SCH (21:39)
[2021-07-27] MEDS: POTASSIUM CHLORIDE 10 MEQ TABLET PO SCH (22:52)
[2021-07-27] MEDS ORDERED: POTASSIUM CHLORIDE 20 MEQ in DEXTROSE 5% IN WATER 250 ML IV ONE (22:53)
[2021-07-27] MEDS ORDERED: POTASSIUM CHLORIDE 20 MEQ/10 ML VIAL IV ONE (23:10)
[2021-07-27] MEDS: 0.9 % SODIUM CHLORIDE 10 ML SYRINGE IV SCH (23:22)
--- NOTE | 2021-07-28 04:48 | Cat Scan Report ---
CLINICAL INFORMATION: Dysphagia and abdominal pain COMPARISON: Chest CTA three 2016 TECHNIQUE: 0.625 mm helical slices were obtained from the mid heart through the subtrochanteric regions. Following reconstruction, 2.5 mm sagittal, coronal and axial reformatted images were processed and reviewed at bone and soft tissue windows.The exam was performed using radiation dose optimization techniques including, but not limited to, automated exposure control, adjustment of the mA and/or kV according to patient size and use of iterative reconstruction technique. FINDINGS: Lung bases show a moderate of consolidated atelectasis or infiltrate in the periphery of the posterior right lower lobe with small right pleural effusion. Small region of atelectasis posterior left lower lobe also appreciated This was not seen on the previous exam. Underlying emphysema has progressed from 2016. The visualized heart is grossly normal in size. There is moderate calcification in the aortic valve and also minimal calcification in the mitral annulus. Scattered calcific plaque seen in the visualized coronary arteries.. Abdominal images show multiple stones packing the gallbladder. Gallbladder wall is normal thickness: no evidence of cholecystitis. Intrahepatic and common bile ducts are normal caliber. The noncontrasted liver, both kidneys, adrenal glands, spleen, pancreas and aorta are normal in size, configuration and attenuation without focal lesion. There is no free air, free fluid or adenopathy. Pelvic images show a Lo catheter properly positioned in the urinary bladder. Modest air is seen in the nondependent urinary bladder-as expected. The prostate is unremarkable.. A PEG tube enters the anterior wall the gastric antrum with retention balloon in the gastric lumen. Stomach, small bowel and large bowel grossly normal. Appendix is surgically absent. Bone windows show no osseous abnormality. IMPRESSION: 1. Cholelithiasis. No evidence of cholecystitis. Intrahepatic and common bile ducts are normal caliber. 2. Small densely consolidated atelectasis or infiltrate in the posterior peripheral right lower lobe with small right pleural effusion. Subsegmental atelectasis posterior left lower lobe. Underlying emphysema has progressed since 2016. 3. Scattered aortic valve calcification with scattered calcific plaque in the coronary arteries. 4. PEG tube properly positioned in the gastric antrum. Interpreted and Authenticated by: Durga Woo 07/28/21
[2021-07-28 06:31] LABS: Basophils # (Auto) 0.01 K/mcL (0.00-0.30); Basophils % (Auto) 0.1 % (0.0-2.0); Eosinophils # (Auto) 0.08 K/mcL (0.00-0.70); Eosinophils % (Auto) 0.8 % (0.0-7.0); Hematocrit 36.8 % (40.1-51.0); Hemoglobin 11.7 g/dL (13.7-17.5); Lymphocytes # (Auto) 0.88 K/mcL (1.50-4.80); Lymphocytes % (Auto) 9.1 % (15.5-49.0); Mean Cell Volume 102.2 fL (80.0-100.0); Mean Corpuscular HGB Conc 31.8 g/dL (31.0-36.0); Mean Platelet Volume 10.5 fL (7.4-10.4); Monocytes % (Auto) 4.1 % (1.0-12.0); Neutrophils % (Auto) 85.9 % (38.0-78.0); Platelet Count 238 K/mcL (140-440); Red Cell Distribution Width 13.6 % (11.5-14.5); WBC 9.6 K/mcL (4.5-11.0)
[2021-07-28 08:05] LABS: ALT/SGPT 70 U/L (<40); AST/SGOT 77 U/L (<40); Albumin 1.9 gm/dL (3.2-5.2); Albumin/Globulin Ratio 0.5 (1.0-2.3); Alkaline Phosphatase 183 U/L (39-117); Bilirubin,Direct 0.6 mg/dL (<0.3); Blood Urea Nitrogen 27 mg/dL (8-23); Calcium 8.7 mg/dL (8.6-10.4); Carbon Dioxide 27 mmol/L (22-30); Chloride 105 mmol/L (96-108); Globulin 3.6 gm/dL (2.2-3.7); Glomerular Filtration Rate 77; Glucose 74 mg/dL (70-105); Lactate Dehydrogenase 276 U/L (135-225); Phosphorous 2.9 mg/dL (2.5-4.5); Triglycerides 112 mg/dL (<150); Uric Acid 8.5 mg/dL (2.5-8.0)
--- NOTE | 2021-07-28 08:08 | EKG ---
[facility] Test Date: 2021-07-27 Pat Name: Isaac Conde Department: ED Room: Gender: Male Administrative Program Specialist: SB : [id number] Requested By: Jason Sandoval Order Number: [id number] Reading MD: Durga Gimenez M.D. Measurements Intervals [place] Rate: 112 P: [place]: QRS: -20 QRSD: 85 T: 242 QT: 356 QTc: 486 Interpretive Statements Atrial fibrillation Anteroseptal infarct, age indeterminate anterolateral ST depression, possible digoxin effect Electronically Signed On 07-28-2021 8:08:00 PDT by Durga Gimenez M.D. /store/[email or web address]/[id number]
[2021-07-28] MEDS ORDERED: POTASSIUM CHLORIDE 40 MEQ in DEXTROSE 5% IN WATER 500 ML IV ONE (08:56)
[2021-07-28] MEDS ORDERED: OMEPRAZOLE 20 MG CAPSULE PO SCH ×2 (09:00→12:47)
[2021-07-28] MEDS ORDERED: HYDROCHLOROTHIAZIDE 25 MG TABLET PO SCH (09:00)
[2021-07-28] MEDS ORDERED: FINASTERIDE 5 MG TABLET PO SCH (09:00)
[2021-07-28] MEDS ORDERED: ATORVASTATIN 40 MG TABLET PO SCH (09:00)
[2021-07-28] MEDS ORDERED: POTASSIUM CHLORIDE 10 MEQ TABLET PO SCH (09:00)
[2021-07-28] MEDS ORDERED: REMDESIVIR 200 MG in 0.9 % SODIUM CHLORIDE 250 ML IV ONE (09:30)
[2021-07-28] MEDS: DOCUSATE SODIUM 100 MG CAPSULE PO SCH (10:32)
[2021-07-28] MEDS: DEXAMETHASONE 10 MG/ML VIAL IV SCH (10:33)
[2021-07-28] MEDS: APIXABAN 5 MG TABLET PO SCH ×2 (10:33→20:17)
[2021-07-28] MEDS: POTASSIUM CHLORIDE 10 MEQ TABLET PO SCH (10:34)
[2021-07-28] MEDS: CHLORHEXIDINE GLUCONATE 1 ML ORAL.SOL SWABMOUTH SCH ×2 (10:35→20:18)
--- NOTE | 2021-07-28 11:11 | Internal Med Progress Note ---
SUBJECTIVE Subjective Patient information: Note initiated : 07/28/21 at 11:02 am Service Date, if different from initiated Date: [] Patient: Isaac Conde 86 y/o M admitted on 07/28/21 for Fall. Chief Complaint: [] Interval history: Mr. Conde is a 86 year old M history of dysphagia status post recent PEG tube placement, atrial fibrillation's on anticoagulants, COPD, GERD, CHF, essential hypertensions, chronic kidney disease stage III, presenting with frequent falls and unable to be fed and failure to thrive. He was recently been hospitalized in discharge from [facility] for PEG tube placement by Dr. Cleveland. He was being discharged home with home health nursing. According to patient and stepson at the bedside, he has frequent falls as well as inability to be fed and unable to get up from bed over the past week since he got discharged home. Family sent the patient's back to our ED via ambulance for further evaluations and for placement needs. Patient is unable to tolerate even the tube feeding or else he was induced episodes of diarrhea. Patient and family is willing to go to SNF if this is were indicated. 07/28: Patient's was on 5 L of oxygen's overnight and currently on 3 L of oxygen's. He is also complaining of shortness of breath with cough so I decided to start him on COVID-specific treatments including dexamethasone and remdesivir while continuing to wean supplemental oxygen as tolerated. He is afebrile overnight. WBC 9.6 this morning. Potassium 2.9 this morning. Will do COVID-specific treatments with dexamethasone and remdesivir. We will do potassium IV replacement and will repeat serum potassium level afterward. We will continue to work with dietitians for PEG tube feeding recommendations. Pending physical therapy evaluation and treatment for placement pending. Constitutional Vitals: Vital Signs Temp Pulse Resp BP Pulse Ox 35.8 C L 68 20 101/53 95 07/28/21 08:00 07/28/21 08:00 07/28/21 08:00 07/28/21 08:00 07/28/21 08:00 Period Temp Pulse Resp BP Sys/Koo Pulse Ox Last 24 Hr 35.8 C-36.4 C 60-128 16-30 93-121/53-84 85-96 Intake and Output 07/27/21 07/28/21 07/28/21 21:59 05:59 13:59 Intake Total 1000 200 0 Output Total 375 Balance 1000 -175 0 Weight 78.018 kg 78.018 kg Intake & Output: Intake & Output 07/27/21 07/28/21 07/28/21 21:59 05:59 13:59 Intake Total 1000 200 0 Output Total 375 Balance 1000 -175 0 Weight 78.018 kg 78.018 kg Intake: IV 1000 Sodium Chloride 0.9% 1,000 ml @ 1000 Wide Open IV BOLUS ONE Rx#: [id number] Oral 0 Tube Feeding 0 0 GI Tube Flush 200 Output: Urine Catheter Amount 375 Other: Urine Appearance Clear Uretheral (Lo) Clear Urine Color Dark Yellow Light Jessy Uretheral (Lo) Dark Jessy General appearance: average body habitus, cooperative and disheveled Head Head exam: Present atraumatic and normal inspection Eye Eye exam: Present normal appearance ENT ENT exam: Present mucous membranes moist, normal exam and normal external ear exam Additional comments: Nasal cannula in place Neck Neck exam: Present normal inspection Respiratory Respiratory exam: Present rhonchi Cardiovascular Cardiovascular exam: Present irregular rhythm GI/Abdominal GI/Abdominal exam: Present normal bowel sounds Additional comments: PEG tube in place Additional comments: Lo catheter in place Extremities Exam Extremities exam: Present full ROM; Absent normal inspection Additional comments: Erythema and tenderness to palpation left elbow Back Exam Back exam: Present normal inspection Neurological Exam Neurological exam: Present alert and oriented X3 Skin Skin exam: Present intact and warm OBJ DATA Labs CBC & Chem 7: 07/28/21 05:23 07/28/21 05:24 Labs: Abnormal Lab Results 07/28/21 07/28/21 07/27/21 05:24 05:23 15:44 RBC 3.60 L Hgb 11.7 L Hct 36.8 L MCV 102.2 H MPV 10.5 H Neut % (Auto) 85.9 H Lymph % (Auto) 9.1 L Lymph # (Auto) 0.88 L Seg Neutrophils % Lymphocytes % Absolute Neutrophils 8.27 H Sodium Potassium 2.9 L* Carbon Dioxide BUN 27 H Creatinine Uric Acid 8.5 H Total Bilirubin Direct Bilirubin 0.6 H GGT 91 H AST 77 H ALT 70 H Alkaline Phosphatase 183 H Lactate Dehydrogenase 276 H Total Protein 5.5 L Albumin 1.9 L Globulin Albumin/Globulin Ratio 0.5 L Urine Appearance Hazy A Urine Protein 30 A Urine Ketones 5 A Urine Urobilinogen 2.0 A Urine RBC 20 H Urine WBC 9 H Urine Bacteria Few A Hyaline Casts 3 H Urine Mucus Few A 07/27/21 07/27/21 12:49 12:49 RBC 4.19 L Hgb Hct MCV MPV 10.9 H Neut % (Auto) Lymph % (Auto) Lymph # (Auto) Seg Neutrophils % 79 H Lymphocytes % 10 L Absolute Neutrophils Sodium 148 H Potassium 3.0 L Carbon Dioxide 33 H BUN 38 H Creatinine 1.3 H Uric Acid Total Bilirubin 1.3 H Direct Bilirubin GGT AST 100 H ALT 94 H Alkaline Phosphatase 256 H Lactate Dehydrogenase Total Protein Albumin 2.9 L Globulin 3.9 H Albumin/Globulin Ratio 0.7 L Urine Appearance Urine Protein Urine Ketones Urine Urobilinogen Urine RBC Urine WBC Urine Bacteria Hyaline Casts Urine Mucus Meds: Medications Acetaminophen (Acetaminophen 325 Mg Tablet) 650 mg PO Q6HP PRN; Protocol PRN Reason: Per Pain Protocol/Fever > 101 Albuterol/Ipratropium (Ipratropium/Albuterol 3 Ml Ampul.Neb) 3 ml NEB Q4HRT PRN PRN Reason: Wheezing Apixaban (Apixaban 5 Mg Tablet) 2.5 mg PO BID [facility] Last Admin: 07/28/21 10:33 Dose: 2.5 mg Documented by: Atorvastatin Calcium (Atorvastatin 40 Mg Tablet) 40 mg PO DAILY [facility] Last Admin: 07/28/21 10:33 Dose: 40 mg Documented by: Chlorhexidine Gluconate (Chlorhexidine Gluconate 1 Ml Oral.Lesly) 15 ml SWABMOUTH BID [facility] Last Admin: 07/28/21 10:35 Dose: 15 ml Documented by: Dexamethasone (Dexamethasone 10 Mg/Ml Vial) 6 mg IV DAILY [facility] Last Admin: 07/28/21 10:33 Dose: 6 mg Documented by: Docusate Sodium (Docusate Sodium 100 Mg Capsule) 100 mg PO BID [facility] Last Admin: 07/28/21 10:32 Dose: 100 mg Documented by: Finasteride (Finasteride 5 Mg Tablet) 5 mg PO QDAY [facility] Last Admin: 07/28/21 10:33 Dose: 5 mg Documented by: Hydrochlorothiazide (Hydrochlorothiazide 25 Mg Tablet) 25 mg PO DAILY [facility] Last Admin: 07/28/21 10:33 Dose: 25 mg Documented by: Potassium Chloride 40 meq/ (Dextrose) 520 mls @ 130 mls/hr IV ONCE ONE Stop: 07/28/21 12:55 Last Admin: 07/28/21 10:34 Dose: 130 mls/hr Documented by: REMDESIVIR 100 mg/ Sodium (Chloride) 250 mls @ 500 mls/hr IV Q24H [facility] Stop: 08/05/21 08:58 Ibuprofen (Ibuprofen 600 Mg Tablet) 600 mg PO QIDP PRN; Protocol PRN Reason: Per Pain Protocol/Fever > 101 Metoprolol Succinate (Metoprolol Succinate 50 Mg Tab.Xl.24h) 50 mg PO BID [facility] Last Admin: 07/27/21 21:39 Dose: 50 mg Documented by: Morphine Sulfate (Morphine 4 Mg/Ml Vial) 2 mg IV Q4HP PRN; Protocol PRN Reason: Per Pain Protocol [facility] Admin: 07/28/21 10:33 Dose: 4 mg Documented by: Omeprazole (Omeprazole 20 Mg Capsule) 40 mg PO QDAY [facility] Last Admin: 07/28/21 10:31 Dose: 40 mg Documented by: Ondansetron HCl (Ondansetron 4 Mg/2 Ml Vial) 4 mg IV Q6HP PRN PRN Reason: Nausea And Vomiting Febuxostat 80 Mg (Tablet) 0.5 dose PO Q48@0900 [facility] Febuxostat 80 Mg (Tablet) 1 dose PO Q48@0900 [facility] Potassium Chloride (Potassium Chloride 10 Meq Tablet) 20 meq PO BIDCC [facility] Last Admin: 07/28/21 10:34 Dose: Not Given Documented by: Senna (Sennosides 1 Tablet) 2 tab PO HS [facility] Last Admin: 07/27/21 21:39 Dose: 2 tab Documented by: Sodium Chloride (0.9 % Sodium Chloride 10 Ml Syringe) 10 ml IV Q8 [facility] Last Admin: 07/27/21 23:22 Dose: 10 ml Documented by: Trazodone HCl (Trazodone Hcl 50 Mg Tablet) 25 mg PO HSP PRN PRN Reason: Insomnia A/P Assessment and plan (1) Hypertension: Status: Chronic (2) GERD (gastroesophageal reflux disease): Status: Chronic (3) COPD (chronic obstructive pulmonary disease): Status: Acute (4) Atrial fibrillation, chronic: Status: Chronic (5) History of CHF (congestive heart failure): Status: Chronic (6) Chronic anticoagulation: Status: Acute Comment: Apixaban/Eliquis (7) Hypokalemia: Status: Acute Comment: Replace K po/IV including KPO4 for phosphorous replacement Aldactone started for low K and CHF Alcoholic with poor nutritional intake (8) Hyponatremia: Status: Acute Comment: PO fluid restriction Use hyperosmolar TF (Nephro) in place of H2O to swallow Rx Stay on sodium restricted diet due to edema and probable CHF (9) Dysphagia: Status: Acute (10) Chronic kidney disease (CKD) stage G3a/A1, moderately decreased glomerular filtration rate (GFR) between 45-59 mL/min/1.73 square meter and albuminuria creatinine ratio less than 30 mg/g: Status: Acute (11) Frequent falls: Status: Acute (12) Failure to thrive in adult: Status: Acute (13) COVID: Status: Acute Narrative A/P Narrative: Assessment and Plans: 1. Dysphagia with failure to thrive: Inpatient med surg Dietitian consult Physical therapy Tube feeding 2. CoVID pneumonia: Supplemental oxygen therapy, currently on 3 L of oxygen Remdesivir Dexamethasone Isolation: airborne and contact 3. Atrial fibrillation: Metoprolol ER for rate control Eliquis for anticoagulation 4. CHF, stable: Metoprolol ER HCTZ 5. COPD, stable: DuoNEB NEB PRN wheezing 6. Chronic kidney disease III: Avoid nephrotoxic agents Saline lock with gentle diuretics CMP in the morning to trend kidney functions 7. Essential HTN: Metoprolol ER HCTZ 8. Hypokalemia: Potassium chloride IV replacement, repeat serum potassium level at noon CMP and serum Mg level in the morning to trend 9. h/o GERD: continue oral PPI from home regimen GI ppx: continue oral PPI from home regimen DVT ppx: Eliquis Code status: DNI DNR Prognosis: stable Disposition: inpatient med surg; PT Time Spent With Patient Time: Total time spent is greater than 50% in coordination of care (as documented) at patient's floor/unit and/or counseling patient: Total time spent with greater than 50% in coordination of care (as documented) at patient's floor/unit and/or counseling patient:: 35 - 50 minutes QUALITY VTE Deep Vein Thrombosis/Pulmonary Embolism Present on Admission: No
[2021-07-28] MEDS: 0.9 % SODIUM CHLORIDE 10 ML SYRINGE IV SCH ×3 (11:20→20:19)
[2021-07-28] MEDS: METOPROLOL SUCCINATE 50 MG TAB.XL.24H PO SCH (11:28)
[2021-07-28] MEDS ORDERED: METOPROLOL SUCCINATE 50 MG TAB.XL.24H PO SCH (12:47)
[2021-07-28] MEDS ORDERED: traZODone HCL 50 MG TABLET PT PRN (12:47)
[2021-07-28 12:51] LABS: Prealbumin 10.3 mg/dL (20.0-40.0)
[2021-07-28] MEDS ORDERED: IBUPROFEN 100 MG/5 ML ORAL SUSP PT PRN (12:59)
[2021-07-28] MEDS: POTASSIUM CHLORIDE 20 MEQ/15 ML ML PT SCH (17:55)
[2021-07-28] MEDS: METOPROLOL TARTRATE 50 MG TABLET PO SCH (20:18)
[2021-07-28] MEDS: DOCUSATE SODIUM 10 MG/ML ML PT SCH (20:18)
[2021-07-28] MEDS: SENNOSIDES 8.8 MG/5 ML ML PT SCH (20:19)
[2021-07-29] MEDS: 0.9 % SODIUM CHLORIDE 10 ML SYRINGE IV SCH ×3 (05:52→20:55)
[2021-07-29 06:32] LABS: Basophils # (Auto) 0.01 K/mcL (0.00-0.30); Basophils % (Auto) 0.1 % (0.0-2.0); Eosinophils # (Auto) 0 K/mcL (0.00-0.70); Eosinophils % (Auto) 0 % (0.0-7.0); Hematocrit 33.8 % (40.1-51.0); Hemoglobin 10.7 g/dL (13.7-17.5); Lymphocytes # (Auto) 0.47 K/mcL (1.50-4.80); Lymphocytes % (Auto) 4.8 % (15.5-49.0); Mean Cell Volume 102.4 fL (80.0-100.0); Mean Corpuscular HGB Conc 31.7 g/dL (31.0-36.0); Mean Platelet Volume 10.9 fL (7.4-10.4); Monocytes # (Auto) 0.34 K/mcL (0.10-0.90); Monocytes % (Auto) 3.5 % (1.0-12.0); Neutrophils % (Auto) 91.6 % (38.0-78.0); Platelet Count 232 K/mcL (140-440); Red Cell Distribution Width 13.6 % (11.5-14.5); WBC 9.9 K/mcL (4.5-11.0)
[2021-07-29 07:05] LABS: ALT/SGPT 72 U/L (<40); AST/SGOT 109 U/L (<40); Albumin/Globulin Ratio 0.6 (1.0-2.3); Alkaline Phosphatase 170 U/L (39-117); Bilirubin,Direct 0.5 mg/dL (<0.3); Bilirubin,Total 0.8 mg/dL (0.1-1.0); Blood Urea Nitrogen 37 mg/dL (8-23); Calcium 8.3 mg/dL (8.6-10.4); Carbon Dioxide 27 mmol/L (22-30); Chloride 108 mmol/L (96-108); Globulin 3.2 gm/dL (2.2-3.7); Glomerular Filtration Rate 61; Glucose 216 mg/dL (70-105); Lactate Dehydrogenase 256 U/L (135-225); Triglycerides 91 mg/dL (<150); Uric Acid 8.4 mg/dL (2.5-8.0)
[2021-07-29] MEDS ORDERED: METHYLPREDNISOLONE 4 MG PT SCH (08:00)
[2021-07-29] MEDS ORDERED: HYDROCHLOROTHIAZIDE 25 MG TABLET PT SCH (09:00)
[2021-07-29] MEDS: guaiFENesin 600 MG TAB.SR.12H PO SCH ×2 (10:35→20:58)
[2021-07-29] MEDS: FINASTERIDE 5 MG TABLET PO SCH (10:35)
[2021-07-29] MEDS: DOCUSATE SODIUM 10 MG/ML ML PT SCH ×2 (10:35→20:55)
[2021-07-29] MEDS: ATORVASTATIN 40 MG TABLET PT SCH (10:35)
[2021-07-29] MEDS: METOPROLOL TARTRATE 50 MG TABLET PO SCH (10:35)
[2021-07-29] MEDS: APIXABAN 5 MG TABLET PO SCH ×2 (10:35→21:07)
[2021-07-29] MEDS: DEXAMETHASONE 10 MG/ML VIAL IV SCH (10:36)
[2021-07-29] MEDS: REMDESIVIR 100 MG in 0.9 % SODIUM CHLORIDE 250 ML IV SCH (10:38)
[2021-07-29] MEDS: CHLORHEXIDINE GLUCONATE 1 ML ORAL.SOL SWABMOUTH SCH ×2 (10:38→20:55)
--- NOTE | 2021-07-29 11:19 | Internal Med Progress Note ---
SUBJECTIVE Subjective Patient information: Note initiated : 07/29/21 at 11:14 am Service Date, if different from initiated Date: [] Patient: Isaac Conde 86 y/o M admitted on 07/28/21 for Fall. Chief Complaint: [] Interval history: Mr. Conde is a 86 year old M history of dysphagia status post recent PEG tube placement, atrial fibrillation's on anticoagulants, COPD, GERD, CHF, essential hypertensions, chronic kidney disease stage III, presenting with frequent falls and unable to be fed and failure to thrive. He was recently been hospitalized in discharge from [facility] for PEG tube placement by Dr. Cleveland. He was being discharged home with home health nursing. According to patient and stepson at the bedside, he has frequent falls as well as inability to be fed and unable to get up from bed over the past week since he got discharged home. Family sent the patient's back to our ED via ambulance for further evaluations and for placement needs. Patient is unable to tolerate even the tube feeding or else he was induced episodes of diarrhea. Patient and family is willing to go to SNF if this is were indicated. 07/28: Patient's was on 5 L of oxygen's overnight and currently on 3 L of oxygen's. He is also complaining of shortness of breath with cough so I decided to start him on COVID-specific treatments including dexamethasone and remdesivir while continuing to wean supplemental oxygen as tolerated. He is afebrile overnight. WBC 9.6 this morning. Potassium 2.9 this morning. Will do COVID-specific treatments with dexamethasone and remdesivir. We will do potassium IV replacement and will repeat serum potassium level afterward. We will continue to work with dietitians for PEG tube feeding recommendations. Pending physical therapy evaluation and treatment for placement pending. 07/29: Afebrile overnight. Patient is on 4 L/min of supplemental oxygen. Patient is committing of increasing degree of shortness of breath. He is complaining of cough with yellow sputum. He is coming of respiratory wheezings. He denies any fever or chills. He denies any chest pain. Continue remdesivir and dexamethasone as COVID specific treatment together with supplemental oxygen. Continue tube feeding as per dietitian's recommendations. Pending SNF placement once patient is out of the 10-day quarantine period. Constitutional Vitals: Vital Signs Temp Pulse Resp BP Pulse Ox 35.8 C L 77 20 96/62 94 07/29/21 08:00 07/29/21 08:00 07/29/21 08:00 07/29/21 08:00 07/29/21 08:00 Period Temp Pulse Resp BP Sys/Koo Pulse Ox Last 24 Hr 35.8 C-36.3 C 77-110 18-24 92-119/52-75 93-97 Intake and Output 07/28/21 07/29/21 07/29/21 21:59 05:59 13:59 Intake Total 850 672 0 Output Total 0 550 Balance 850 122 0 Weight 78.154 kg Intake & Output: Intake & Output 07/28/21 07/29/21 07/29/21 21:59 05:59 13:59 Intake Total 850 672 0 Output Total 0 550 Balance 850 122 0 Weight 78.154 kg Intake: IV 770 Potassium Chloride 40 Meq In 520 Dextrose 5% in Water 500 ml @ 130 mls/hr IV ONCE ONE Rx#: [id number] Veklury 200 mg In Sodium 250 Chloride 0.9% 250 ml @ 500 mls/ hr IV ONCE ONE Rx#:[id number] Tube Feeding 20 312 0 GI Tube Flush 360 NG Tube Flush 60 PEG 60 Output: Gastric Drainage 0 PEG 0 Urine Catheter Amount 550 Other: Urine Appearance Clear Uretheral (Lo) Clear Urine Color Dark Jessy Uretheral (Lo) Tea Colored Head Head exam: Present atraumatic and normal inspection Eye Eye exam: Present normal appearance ENT ENT exam: Present mucous membranes moist, normal exam and normal external ear exam Additional comments: Nasal cannula in place Neck Neck exam: Present normal inspection Respiratory Respiratory exam: Present rhonchi Cardiovascular Cardiovascular exam: Present irregular rhythm GI/Abdominal GI/Abdominal exam: Present normal bowel sounds Additional comments: PEG tube in place Back Exam Back exam: Present normal inspection Neurological Exam Neurological exam: Present alert and oriented X3 Skin Skin exam: Present intact and warm OBJ DATA Labs CBC & Chem 7: 07/29/21 05:37 07/29/21 05:37 Labs: Abnormal Lab Results 07/29/21 07/29/21 07/28/21 05:37 05:37 12:20 RBC 3.30 L Hgb 10.7 L Hct 33.8 L MCV 102.4 H MPV 10.9 H Neut % (Auto) 91.6 H Lymph % (Auto) 4.8 L Lymph # (Auto) 0.47 L Seg Neutrophils % Lymphocytes % Absolute Neutrophils 9.03 H Sodium Potassium 3.1 L Carbon Dioxide BUN 37 H Creatinine Glucose 216 H Uric Acid 8.4 H Calcium 8.3 L Total Bilirubin Direct Bilirubin 0.5 H GGT 78 H AST 109 H ALT 72 H Alkaline Phosphatase 170 H Lactate Dehydrogenase 256 H Total Protein 5.2 L Albumin 2.0 L Globulin Albumin/Globulin Ratio 0.6 L Prealbumin Urine Appearance Urine Protein Urine Ketones Urine Urobilinogen Urine RBC Urine WBC Urine Bacteria Hyaline Casts Urine Mucus 07/28/21 07/28/21 07/27/21 05:24 05:23 15:44 RBC 3.60 L Hgb 11.7 L Hct 36.8 L MCV 102.2 H MPV 10.5 H Neut % (Auto) 85.9 H Lymph % (Auto) 9.1 L Lymph # (Auto) 0.88 L Seg Neutrophils % Lymphocytes % Absolute Neutrophils 8.27 H Sodium Potassium 2.9 L* Carbon Dioxide BUN 27 H Creatinine Glucose Uric Acid 8.5 H Calcium Total Bilirubin Direct Bilirubin 0.6 H GGT 91 H AST 77 H ALT 70 H Alkaline Phosphatase 183 H Lactate Dehydrogenase 276 H Total Protein 5.5 L Albumin 1.9 L Globulin Albumin/Globulin Ratio 0.5 L Prealbumin Urine Appearance Hazy A Urine Protein 30 A Urine Ketones 5 A Urine Urobilinogen 2.0 A Urine RBC 20 H Urine WBC 9 H Urine Bacteria Few A Hyaline Casts 3 H Urine Mucus Few A 07/27/21 07/27/21 07/27/21 12:49 12:49 12:49 RBC 4.19 L Hgb Hct MCV MPV 10.9 H Neut % (Auto) Lymph % (Auto) Lymph # (Auto) Seg Neutrophils % 79 H Lymphocytes % 10 L Absolute Neutrophils Sodium 148 H Potassium 3.0 L Carbon Dioxide 33 H BUN 38 H Creatinine 1.3 H Glucose Uric Acid Calcium Total Bilirubin 1.3 H Direct Bilirubin GGT AST 100 H ALT 94 H Alkaline Phosphatase 256 H Lactate Dehydrogenase Total Protein Albumin 2.9 L Globulin 3.9 H Albumin/Globulin Ratio 0.7 L Prealbumin 10.3 L Urine Appearance Urine Protein Urine Ketones Urine Urobilinogen Urine RBC Urine WBC Urine Bacteria Hyaline Casts Urine Mucus Meds: Medications Acetaminophen (Acetaminophen 160 Mg/5 Ml Oral.Lesly) 650 mg PT Q6HP PRN; Protocol PRN Reason: Per Pain Protocol/Fever > 101 Albuterol/Ipratropium (Ipratropium/Albuterol 3 Ml Ampul.Neb) 3 ml NEB Q4HRT PRN PRN Reason: Wheezing Apixaban (Apixaban 5 Mg Tablet) 2.5 mg PO BID [facility] Last Admin: 07/29/21 10:35 Dose: 2.5 mg Documented by: Atorvastatin Calcium (Atorvastatin 40 Mg Tablet) 40 mg PT DAILY [facility] Last Admin: 07/29/21 10:35 Dose: 40 mg Documented by: Chlorhexidine Gluconate (Chlorhexidine Gluconate 1 Ml Oral.Lesly) 15 ml SWABMOUTH BID [facility] Last Admin: 07/29/21 10:38 Dose: 15 ml Documented by: Dexamethasone (Dexamethasone 10 Mg/Ml Vial) 6 mg IV DAILY [facility] Last Admin: 07/29/21 10:36 Dose: 6 mg Documented by: Docusate Sodium (Docusate Sodium 10 Mg/Ml Ml) 100 mg PT BID [facility] Last Admin: 07/29/21 10:35 Dose: 100 mg Documented by: Finasteride (Finasteride 5 Mg Tablet) 5 mg PO QDAY [facility] Last Admin: 07/29/21 10:35 Dose: 5 mg Documented by: Guaifenesin (Guaifenesin 600 Mg Tab.Sr.12h) 600 mg PO BID [facility] Last Admin: 07/29/21 10:35 Dose: 600 mg Documented by: Hydrochlorothiazide (Hydrochlorothiazide 25 Mg Tablet) 25 mg PT DAILY [facility] Last Admin: 07/29/21 10:35 Dose: 25 mg Documented by: REMDESIVIR 100 mg/ Sodium (Chloride) 250 mls @ 500 mls/hr IV Q24H [facility] Stop: 08/05/21 08:58 Last Admin: 07/29/21 10:38 Dose: 500 mls/hr Documented by: Ibuprofen (Ibuprofen 100 Mg/5 Ml Oral Susp) 600 mg PT QIDP PRN; Protocol PRN Reason: Per Pain Protocol/Fever > 101 Last Admin: 07/28/21 20:16 Dose: 600 mg Documented by: Metoprolol Tartrate (Metoprolol Tartrate 50 Mg Tablet) 50 mg PO BID [facility] Last Admin: 07/29/21 10:35 Dose: 50 mg Documented by: Morphine Sulfate (Morphine 4 Mg/Ml Vial) 2 mg IV Q4HP PRN; Protocol PRN Reason: Per Pain Protocol Omeprazole (Omeprazole 20 Mg Capsule) 40 mg PO QDAY [facility] Last Admin: 07/29/21 10:38 Dose: Not Given Documented by: Ondansetron HCl (Ondansetron 4 Mg/2 Ml Vial) 4 mg IV Q6HP PRN PRN Reason: Nausea And Vomiting Febuxostat 80 Mg (Tablet) 0.5 dose PO Q48@0900 [facility] Last Admin: 07/28/21 12:02 Dose: Not Given Documented by: Febuxostat 80 Mg (Tablet) 1 dose PO Q48@0900 [facility] Last Admin: 07/29/21 10:38 Dose: Not Given Documented by: Potassium Chloride (Potassium Chloride 20 Meq/15 Ml Ml) 20 meq PT BIDCC [facility] Last Admin: 07/28/21 17:55 Dose: 20 meq Documented by: Senna (Sennosides 8.8 Mg/5 Ml Ml) 17.6 mg PT HS [facility] Last Admin: 07/28/21 20:19 Dose: 17.6 mg Documented by: Sodium Chloride (0.9 % Sodium Chloride 10 Ml Syringe) 10 ml IV Q8 [facility] Last Admin: 07/29/21 05:52 Dose: 10 ml Documented by: Trazodone HCl (Trazodone Hcl 50 Mg Tablet) 25 mg PT HSP PRN PRN Reason: Insomnia A/P Assessment and plan (1) Hypertension: Status: Chronic (2) GERD (gastroesophageal reflux disease): Status: Chronic (3) COPD (chronic obstructive pulmonary disease): Status: Acute (4) Atrial fibrillation, chronic: Status: Chronic (5) History of CHF (congestive heart failure): Status: Chronic (6) Chronic anticoagulation: Status: Acute Comment: Apixaban/Eliquis (7) Hypokalemia: Status: Acute Comment: Replace K po/IV including KPO4 for phosphorous replacement Aldactone started for low K and CHF Alcoholic with poor nutritional intake (8) Hyponatremia: Status: Acute Comment: PO fluid restriction Use hyperosmolar TF (Nephro) in place of H2O to swallow Rx Stay on sodium restricted diet due to edema and probable CHF (9) Dysphagia: Status: Acute (10) Chronic kidney disease (CKD) stage G3a/A1, moderately decreased glomerular filtration rate (GFR) between 45-59 mL/min/1.73 square meter and albuminuria creatinine ratio less than 30 mg/g: Status: Acute (11) Frequent falls: Status: Acute (12) Failure to thrive in adult: Status: Acute (13) COVID: Status: Acute (14) Anemia, macrocytic: Status: Acute Narrative A/P Narrative: Assessment and Plans: 1. Dysphagia with failure to thrive: Inpatient med surg Dietitian consult Physical therapy--->SNF placement Tube feeding 2. CoVID pneumonia: Supplemental oxygen therapy, currently on 4L/min of oxygen Remdesivir Dexamethasone Isolation: airborne and contact 3. Atrial fibrillation: Metoprolol tartrate 50mg PT BID for rate control Eliquis for anticoagulation 4. CHF, stable: Metoprolol tartrate HCTZ 5. COPD, stable: DuoNEB NEB PRN wheezing 6. Chronic kidney disease III: Avoid nephrotoxic agents Saline lock with gentle diuretics CMP in the morning to trend kidney functions 7. Essential HTN: Metoprolol tartrate HCTZ 8. Hypokalemia: RESOLVED Potassium chloride replacement as needed CMP and serum Mg level in the morning to trend 9. h/o GERD: continue oral PPI from home regimen 10. Anemia, macrocytic: cbc w/ auto diff in the morning to trend H/H GI ppx: continue oral PPI from home regimen DVT ppx: Eliquis Code status: DNI DNR Prognosis: stable Disposition: inpatient med surg; SNF placement Time Spent With Patient Time: Total time spent is greater than 50% in coordination of care (as documented) at patient's floor/unit and/or counseling patient: Total time spent with greater than 50% in coordination of care (as documented) at patient's floor/unit and/or counseling patient:: 35 - 50 minutes QUALITY VTE Deep Vein Thrombosis/Pulmonary Embolism Present on Admission: No
[2021-07-29] MEDS: POTASSIUM CHLORIDE 20 MEQ/15 ML ML PT SCH ×2 (12:00→17:45)
[2021-07-29] MEDS: PANTOPRAZOLE 40 MG PACKET PT SCH (12:41)
[2021-07-29] MEDS ORDERED: morphine 2 MG/ML VIAL IV ONE (16:07)
[2021-07-29] MEDS ORDERED: IOPAMIDOL 100 ML BOTTLE IV ONE (16:55)
--- NOTE | 2021-07-29 17:14 | Cat Scan Report ---
CLINICAL INFORMATION: Chest pain history of fall COMPARISON: None. TECHNIQUE: 80ml of Isovue-370 were injected intravenously. Using SmartPrep to maximize pulmonary artery opacification, .625mm helical slices were obtained from the lung apices through the lung bases. Following reconstruction, 2.5 mm sagittal, coronal, and axial reformations were processed. The exam was reviewed at mediastinal, lung, and bone windows. The exam was performed using radiation dose optimization techniques including, but not limited to, automated exposure control, adjustment of the mA and/or kV according to patient size and use of iterative reconstruction technique. FINDINGS: Pulmonary parenchymal windows moderate right pleural effusion with a loculated component and the superior aspect of the major fissure. A moderate bandlike region of consolidated atelectasis or, less likely, infiltrate is seen in the posterior peripheral right lower lobe. Small left pleural effusion is noted with subsegmental atelectasis in the adjacent posterior left lower lobe. Moderate underlying centrilobular emphysema featuring chronic bronchitis with elevated lung volumes wall thickening/dilatation of bronchi. There are scattered bullae predominantly in the upper lobes. Mediastinal windows show the heart heart is mildly enlarged. There is calcification in the aortic valve. Heavy calcific plaque seen in the coronary arteries-particularly the left main. The pulmonary arteries are normal diameter and well-opacified without evidence of embolus. Thoracic aorta is also normal diameter. There is no adenopathy in the mediastinal, hilar or axillary regions. Esophagus is grossly normal. The thyroid is diminutive and shows no focal lesion. Bones and soft tissues the chest wall are normal. Images through the superior abdomen show multiple small stones layering dependently within the gallbladder. The visualized kidneys, adrenal glands, spleen, pancreas and liver are normal. IMPRESSION: 1. No evidence of pulmonary embolus. 2. Moderate right pleural effusion with loculated component and the superior right major fissure. A moderate region of subsegmental consolidated atelectasis or, less likely, infiltrate is seen in the peripheral posterior right lower lobe. 3. Small left pleural effusion with subsegmental atelectasis left lower lobe 4. Moderate centrilobular emphysema. 5. Mild cardiomegaly with heavy calcific plaque in the coronary arteries-particularly the left main. Heavy calcification seen in the aortic valve. 6. Cholelithiasis. 7. PEG tube in satisfactory position entering through anterior wall of the gastric antrum. Interpreted and Authenticated by: Durga Woo 07/29/21
[2021-07-29] MEDS: IPRATROPIUM/ALBUTEROL 3 ML AMPUL.NEB NEB PRN (18:07)
[2021-07-29] MEDS: SENNOSIDES 8.8 MG/5 ML ML PT SCH (20:55)
[2021-07-30] MEDS: IPRATROPIUM/ALBUTEROL 3 ML AMPUL.NEB NEB PRN (01:59)
[2021-07-30] MEDS: 0.9 % SODIUM CHLORIDE 10 ML SYRINGE IV SCH ×3 (05:49→21:00)
[2021-07-30 07:09] LABS: Basophils # (Auto) 0.01 K/mcL (0.00-0.30); Basophils % (Auto) 0.1 % (0.0-2.0); Eosinophils # (Auto) 0 K/mcL (0.00-0.70); Eosinophils % (Auto) 0 % (0.0-7.0); Hematocrit 37.6 % (40.1-51.0); Hemoglobin 11.6 g/dL (13.7-17.5); Lymphocytes # (Auto) 0.27 K/mcL (1.50-4.80); Lymphocytes % (Auto) 2.5 % (15.5-49.0); Mean Cell Volume 104.4 fL (80.0-100.0); Mean Corpuscular HGB Conc 30.9 g/dL (31.0-36.0); Mean Platelet Volume 11.8 fL (7.4-10.4); Monocytes # (Auto) 0.38 K/mcL (0.10-0.90); Monocytes % (Auto) 3.5 % (1.0-12.0); Neutrophils % (Auto) 93.9 % (38.0-78.0); Platelet Count 221 K/mcL (140-440); Red Cell Distribution Width 13.5 % (11.5-14.5); WBC 10.8 K/mcL (4.5-11.0)
[2021-07-30] MEDS ORDERED: POLYETHYLENE GLYCOL 3350 17 GM PACKET PO PRN (07:55)
[2021-07-30] MEDS ORDERED: MAGNESIUM HYDROXIDE 30 ML ORAL.SUSP PO PRN (07:55)
--- NOTE | 2021-07-30 08:01 | Internal Med Progress Note ---
SUBJECTIVE Subjective Patient information: Note initiated : 07/30/21 at 7:56 am Service Date, if different from initiated Date: [] Patient: Isaac Conde 86 y/o M admitted on 07/28/21 for Fall. Chief Complaint: [] Interval history: Mr. Conde is a 86 year old M history of dysphagia status post recent PEG tube placement, atrial fibrillation's on anticoagulants, COPD, GERD, CHF, essential hypertensions, chronic kidney disease stage III, presenting with frequent falls and unable to be fed and failure to thrive. He was recently been hospitalized in discharge from [facility] for PEG tube placement by Dr. Cleveland. He was being discharged home with home health nursing. According to patient and stepson at the bedside, he has frequent falls as well as inability to be fed and unable to get up from bed over the past week since he got discharged home. Family sent the patient's back to our ED via ambulance for further evaluations and for placement needs. Patient is unable to tolerate even the tube feeding or else he was induced episodes of diarrhea. Patient and family is willing to go to SNF if this is were indicated. 07/28: Patient's was on 5 L of oxygen's overnight and currently on 3 L of oxygen's. He is also complaining of shortness of breath with cough so I decided to start him on COVID-specific treatments including dexamethasone and remdesivir while continuing to wean supplemental oxygen as tolerated. He is afebrile overnight. WBC 9.6 this morning. Potassium 2.9 this morning. Will do COVID-specific treatments with dexamethasone and remdesivir. We will do potassium IV replacement and will repeat serum potassium level afterward. We will continue to work with dietitians for PEG tube feeding recommendations. P ending physical therapy evaluation and treatment for placement pending. 07/29: Afebrile overnight. Patient is on 4 L/min of supplemental oxygen. Patient is committing of increasing degree of shortness of breath. He is complaining of cough with yellow sputum. He is coming of respiratory wheezings. He denies any fever or chills. He denies any chest pain. Continue remdesivir and dexamethasone as COVID specific treatment together with supplemental oxygen. Continue tube feeding as per dietitian's recommendations. Pending SNF placement once patient is out of the 10-day quarantine period. 07/30: Transferred from [facility] to [facility] yesterday. Afebrile overnight. He is currently on the 5 L/min of oxygen's. Patient is complaining of improving degree of shortness of breath with cough. He denies respiratory wheezings. He denies fever or chills. He is complaining of nausea and constipation's. He is complain of dry mouth. Biotene mouth wash for dry mouth. Add Miralax and Milk of Magnesia for constipation. Continue remdesivir and dexamethasone as COVID specific treatment together with supplemental oxygen. Continue tube feeding as per dietitian's recommendations. Pending SNF placement once patient is out of the 10-day quarantine period. Constitutional Vitals: Vital Signs Temp Pulse Resp BP Pulse Ox 35.8 C L 94 H 25 H 81/57 96 07/29/21 14:50 07/29/21 18:20 07/29/21 18:20 07/29/21 14:50 07/29/21 20:00 Period Temp Pulse Resp BP Sys/Koo Pulse Ox Last 24 Hr 35.8 C-35.9 C 74-94 18-30 81-128/57-73 94-97 Intake and Output 07/29/21 07/30/21 07/30/21 21:59 05:59 13:59 Intake Total 600 1501 Output Total 400 450 Balance 200 1051 Weight 78.562 kg Intake & Output: Intake & Output 07/29/21 07/30/21 07/30/21 21:59 05:59 13:59 Intake Total 600 1501 Output Total 400 450 Balance 200 1051 Weight 78.562 kg Intake: Tube Feeding 0 1141 GI Tube Flush 600 360 Output: Gastric Drainage 0 PEG 0 Urine Catheter Amount 400 450 Other: Urine Appearance Clear Urine Color Dark Jessy Dark Jessy Uretheral (Lo) Dark Jessy Urine Odor Normal Head Head exam: Present atraumatic and normal inspection Eye Eye exam: Present normal appearance ENT ENT exam: Present mucous membranes moist, normal exam and normal external ear exam Additional comments: Nasal cannula in place Neck Neck exam: Present normal inspection Respiratory Respiratory exam: Present normal respiratory exam Cardiovascular Cardiovascular exam: Present irregular rhythm GI/Abdominal GI/Abdominal exam: Present normal bowel sounds Additional comments: PEG tube in place Additional comments: Lo catheter in place Back Exam Back exam: Present normal inspection Neurological Exam Neurological exam: Present alert and oriented X3 Skin Skin exam: Present intact and warm OBJ DATA Labs CBC & Chem 7: 07/30/21 05:49 07/29/21 05:37 Labs: Abnormal Lab Results 07/30/21 07/29/21 07/29/21 05:49 16:24 05:37 RBC 3.60 L 3.30 L Hgb 11.6 L 10.7 L Hct 37.6 L 33.8 L MCV 104.4 H 102.4 H MCHC 30.9 L MPV 11.8 H 10.9 H Neut % (Auto) 93.9 H 91.6 H Lymph % (Auto) 2.5 L 4.8 L Lymph # (Auto) 0.27 L 0.47 L Seg Neutrophils % Lymphocytes % Absolute Neutrophils 10.10 H 9.03 H POC pO2 78 L POC HCO3 26.3 H Sodium Potassium Carbon Dioxide BUN Creatinine Glucose POC Arterial Lactate 2.5 H Uric Acid Calcium Total Bilirubin Direct Bilirubin GGT AST ALT Alkaline Phosphatase Lactate Dehydrogenase Total Protein Albumin Globulin Albumin/Globulin Ratio Prealbumin Urine Appearance Urine Protein Urine Ketones Urine Urobilinogen Urine RBC Urine WBC Urine Bacteria Hyaline Casts Urine Mucus 07/29/21 07/28/21 07/28/21 05:37 12:20 05:24 RBC Hgb Hct MCV MCHC MPV Neut % (Auto) Lymph % (Auto) Lymph # (Auto) Seg Neutrophils % Lymphocytes % Absolute Neutrophils POC pO2 POC HCO3 Sodium Potassium 3.1 L 2.9 L* Carbon Dioxide BUN 37 H 27 H Creatinine Glucose 216 H POC Arterial Lactate Uric Acid 8.4 H 8.5 H Calcium 8.3 L Total Bilirubin Direct Bilirubin 0.5 H 0.6 H GGT 78 H 91 H AST 109 H 77 H ALT 72 H 70 H Alkaline Phosphatase 170 H 183 H Lactate Dehydrogenase 256 H 276 H Total Protein 5.2 L 5.5 L Albumin 2.0 L 1.9 L Globulin Albumin/Globulin Ratio 0.6 L 0.5 L Prealbumin Urine Appearance Urine Protein Urine Ketones Urine Urobilinogen Urine RBC Urine WBC Urine Bacteria Hyaline Casts Urine Mucus 07/28/21 07/27/21 07/27/21 05:23 15:44 12:49 RBC 3.60 L Hgb 11.7 L Hct 36.8 L MCV 102.2 H MCHC MPV 10.5 H Neut % (Auto) 85.9 H Lymph % (Auto) 9.1 L Lymph # (Auto) 0.88 L Seg Neutrophils % Lymphocytes % Absolute Neutrophils 8.27 H POC pO2 POC HCO3 Sodium Potassium Carbon Dioxide BUN Creatinine Glucose POC Arterial Lactate Uric Acid Calcium Total Bilirubin Direct Bilirubin GGT AST ALT Alkaline Phosphatase Lactate Dehydrogenase Total Protein Albumin Globulin Albumin/Globulin Ratio Prealbumin 10.3 L Urine Appearance Hazy A Urine Protein 30 A Urine Ketones 5 A Urine Urobilinogen 2.0 A Urine RBC 20 H Urine WBC 9 H Urine Bacteria Few A Hyaline Casts 3 H Urine Mucus Few A 07/27/21 07/27/21 12:49 12:49 RBC 4.19 L Hgb Hct MCV MCHC MPV 10.9 H Neut % (Auto) Lymph % (Auto) Lymph # (Auto) Seg Neutrophils % 79 H Lymphocytes % 10 L Absolute Neutrophils POC pO2 POC HCO3 Sodium 148 H Potassium 3.0 L Carbon Dioxide 33 H BUN 38 H Creatinine 1.3 H Glucose POC Arterial Lactate Uric Acid Calcium Total Bilirubin 1.3 H Direct Bilirubin GGT AST 100 H ALT 94 H Alkaline Phosphatase 256 H Lactate Dehydrogenase Total Protein Albumin 2.9 L Globulin 3.9 H Albumin/Globulin Ratio 0.7 L Prealbumin Urine Appearance Urine Protein Urine Ketones Urine Urobilinogen Urine RBC Urine WBC Urine Bacteria Hyaline Casts Urine Mucus Meds: Medications Acetaminophen (Acetaminophen 160 Mg/5 Ml Oral.Lesly) 650 mg PT Q6HP PRN; Protocol PRN Reason: Per Pain Protocol/Fever > 101 Albuterol/Ipratropium (Ipratropium/Albuterol 3 Ml Ampul.Neb) 3 ml NEB Q2HP PRN PRN Reason: Wheezing Last Admin: 07/30/21 01:59 Dose: 3 ml Documented by: Apixaban (Apixaban 5 Mg Tablet) 2.5 mg PO BID [facility] Last Admin: 07/29/21 21:07 Dose: 2.5 mg Documented by: Atorvastatin Calcium (Atorvastatin 40 Mg Tablet) 40 mg PT DAILY [facility] Last Admin: 07/29/21 10:35 Dose: 40 mg Documented by: Chlorhexidine Gluconate (Chlorhexidine Gluconate 1 Ml Oral.Lesly) 15 ml SWABMOUTH BID [facility] Last Admin: 07/29/21 20:55 Dose: 15 ml Documented by: Dexamethasone (Dexamethasone 10 Mg/Ml Vial) 6 mg IV DAILY [facility] Last Admin: 07/29/21 10:36 Dose: 6 mg Documented by: Docusate Sodium (Docusate Sodium 10 Mg/Ml Ml) 100 mg PT BID [facility] Last Admin: 07/29/21 20:55 Dose: 100 mg Documented by: Finasteride (Finasteride 5 Mg Tablet) 5 mg PO QDAY [facility] Last Admin: 07/29/21 10:35 Dose: 5 mg Documented by: Glucose Oxid/Lactoperoxid/Muramidas (Lactoperoxi/Gluc Oxid/Pot Thio 1 Each Gel..Ea.) 1 each TOPICAL PRN PRN PRN Reason: Dry Mouth Guaifenesin (Guaifenesin/Dextromethorphan Oral Lesly) 10 ml PO Q4HP PRN PRN Reason: Cough REMDESIVIR 100 mg/ Sodium (Chloride) 250 mls @ 500 mls/hr IV Q24H [facility] Stop: 08/05/21 08:58 Last Infusion: 07/29/21 11:08 Dose: Infused Documented by: Ibuprofen (Ibuprofen 100 Mg/5 Ml Oral Susp) 600 mg PT QIDP PRN; Protocol PRN Reason: Per Pain Protocol/Fever > 101 Last Admin: 07/28/21 20:16 Dose: 600 mg Documented by: Morphine Sulfate (Morphine 4 Mg/Ml Vial) 2 mg IV Q4HP PRN; Protocol PRN Reason: Per Pain Protocol Ondansetron HCl (Ondansetron 4 Mg/2 Ml Vial) 4 mg IV Q6HP PRN PRN Reason: Nausea And Vomiting Pantoprazole Sodium (Pantoprazole 40 Mg Vial) 40 mg IV [facility] Febuxostat 80 Mg (Tablet) 0.5 dose PO Q48@0900 [facility] Last Admin: 07/28/21 12:02 Dose: Not Given Documented by: Febuxostat 80 Mg (Tablet) 1 dose PO Q48@0900 [facility] Last Admin: 07/29/21 10:38 Dose: Not Given Documented by: Potassium Chloride (Potassium Chloride 20 Meq/15 Ml Ml) 20 meq PT BIDCC [facility] Last Admin: 07/29/21 17:45 Dose: 20 meq Documented by: Senna (Sennosides 8.8 Mg/5 Ml Ml) 17.6 mg PT HS [facility] Last Admin: 07/29/21 20:55 Dose: 17.6 mg Documented by: Sodium Chloride (0.9 % Sodium Chloride 10 Ml Syringe) 10 ml IV Q8 [facility] Last Admin: 07/30/21 05:49 Dose: 10 ml Documented by: Trazodone HCl (Trazodone Hcl 50 Mg Tablet) 25 mg PT HSP PRN PRN Reason: Insomnia A/P Assessment and plan (1) Hypertension: Status: Chronic (2) GERD (gastroesophageal reflux disease): Status: Chronic (3) COPD (chronic obstructive pulmonary disease): Status: Acute (4) Atrial fibrillation, chronic: Status: Chronic (5) History of CHF (congestive heart failure): Status: Chronic (6) Chronic anticoagulation: Status: Acute Comment: Apixaban/Eliquis (7) Hypokalemia: Status: Acute Comment: Replace K po/IV including KPO4 for phosphorous replacement Aldactone started for low K and CHF Alcoholic with poor nutritional intake (8) Hyponatremia: Status: Acute Comment: PO fluid restriction Use hyperosmolar TF (Nephro) in place of H2O to swallow Rx Stay on sodium restricted diet due to edema and probable CHF (9) Dysphagia: Status: Acute (10) Chronic kidney disease (CKD) stage G3a/A1, moderately decreased glomerular filtration rate (GFR) between 45-59 mL/min/1.73 square meter and albuminuria creatinine ratio less than 30 mg/g: Status: Acute (11) Frequent falls: Status: Acute (12) Failure to thrive in adult: Status: Acute (13) COVID: Status: Acute (14) Anemia, macrocytic: Status: Acute Narrative A/P Narrative: Assessment and Plans: 1. Dysphagia with failure to thrive: Inpatient med surg Dietitian consult Physical therapy--->SNF placement Tube feeding 2. CoVID pneumonia: Supplemental oxygen therapy, currently on 4L/min of oxygen Remdesivir Dexamethasone Robitussin DM PT Isolation: airborne and contact 3. Atrial fibrillation: Metoprolol tartrate 50mg PT BID for rate control Eliquis for anticoagulation 4. CHF, stable: Metoprolol tartrate HCTZ 5. COPD, stable: DuoNEB NEB PRN wheezing 6. Chronic kidney disease III: Avoid nephrotoxic agents Saline lock with gentle diuretics CMP in the morning to trend kidney functions 7. Essential HTN: Metoprolol tartrate HCTZ 8. Hypokalemia: RESOLVED Potassium chloride replacement as needed CMP and serum Mg level in the morning to trend 9. h/o GERD: Switch PPI from PT to IV for better tolerance 10. Anemia, macrocytic: cbc w/ auto diff in the morning to trend H/H GI ppx: Switch PPI from PT to IV for better tolerance DVT ppx: Eliquis Code status: DNI DNR Prognosis: stable Disposition: inpatient med surg; SNF placement Time Spent With Patient Time: Total time spent is greater than 50% in coordination of care (as documented) at patient's floor/unit and/or counseling patient: Total time spent with greater than 50% in coordination of care (as documented) at patient's floor/unit and/or counseling patient:: 35 - 50 minutes QUALITY VTE Deep Vein Thrombosis/Pulmonary Embolism Present on Admission: No
[2021-07-30 08:05] LABS: ALT/SGPT 64 U/L (<40); AST/SGOT 57 U/L (<40); Albumin 2.1 gm/dL (3.2-5.2); Albumin/Globulin Ratio 0.6 (1.0-2.3); Alkaline Phosphatase 215 U/L (39-117); Bilirubin,Direct 0.4 mg/dL (<0.3); Bilirubin,Total 0.6 mg/dL (0.1-1.0); Blood Urea Nitrogen 39 mg/dL (8-23); Calcium 8.6 mg/dL (8.6-10.4); Carbon Dioxide 23 mmol/L (22-30); Chloride 103 mmol/L (96-108); Globulin 3.7 gm/dL (2.2-3.7); Glomerular Filtration Rate 61; Glucose 323 mg/dL (70-105); Lactate Dehydrogenase 313 U/L (135-225); Phosphorous 2.3 mg/dL (2.5-4.5); Triglycerides 86 mg/dL (<150); Uric Acid 6.2 mg/dL (2.5-8.0)
[2021-07-30] MEDS: POTASSIUM CHLORIDE 20 MEQ/15 ML ML PT SCH ×2 (08:09→16:31)
[2021-07-30] MEDS: PANTOPRAZOLE 40 MG VIAL IV SCH (08:09)
[2021-07-30] MEDS: guaiFENesin/DEXTROMETHORPHAN ORAL SOL PO PRN ×2 (08:09→20:36)
[2021-07-30 08:11] LABS: ALT/SGPT 67 U/L (<40); AST/SGOT 58 U/L (<40); Albumin/Globulin Ratio 0.5 (1.0-2.3); Alkaline Phosphatase 189 U/L (39-117); Bilirubin,Total 0.6 mg/dL (0.1-1.0); Blood Urea Nitrogen 31 mg/dL (8-23); Calcium 8.7 mg/dL (8.6-10.4); Carbon Dioxide 20 mmol/L (22-30); Chloride 103 mmol/L (96-108); Globulin 3.7 gm/dL (2.2-3.7); Glomerular Filtration Rate 61; Glucose 329 mg/dL (70-105); Phosphorous 2.4 mg/dL (2.5-4.5)
[2021-07-30] MEDS: PANTOPRAZOLE 40 MG PACKET PT SCH (08:53)
[2021-07-30] MEDS: DEXAMETHASONE 10 MG/ML VIAL IV SCH (09:38)
[2021-07-30] MEDS: ATORVASTATIN 40 MG TABLET PT SCH (09:39)
[2021-07-30] MEDS: APIXABAN 5 MG TABLET PO SCH ×2 (09:39→20:35)
[2021-07-30] MEDS: FINASTERIDE 5 MG TABLET PO SCH (09:39)
[2021-07-30] MEDS: ACETAMINOPHEN 160 MG/5 ML ORAL.SOL PT PRN ×2 (09:39→20:36)
[2021-07-30] MEDS: REMDESIVIR 100 MG in 0.9 % SODIUM CHLORIDE 250 ML IV SCH (09:40)
[2021-07-30] MEDS: CHLORHEXIDINE GLUCONATE 1 ML ORAL.SOL SWABMOUTH SCH ×2 (09:40→20:35)
[2021-07-30] MEDS: DOCUSATE SODIUM 10 MG/ML ML PT SCH ×2 (09:41→20:35)
[2021-07-30] MEDS: LACTOPEROXI/GLUC OXID/POT THIO 1 EACH GEL..EA. TOPICAL PRN (09:41)
[2021-07-30] MEDS ORDERED: DEXTROSE 50% 50 ML VIAL IV PRN (11:22)
[2021-07-30] MEDS ORDERED: DEXTROSE 31 GM ORAL.SUSP PO PRN (11:22)
[2021-07-30] MEDS: INSULIN LISPRO 1 UNIT/0.01 ML UNIT SQ SCH ×3 (12:01→21:00)
[2021-07-30] MEDS ORDERED: METOPROLOL TARTRATE 5 MG/5 ML VIAL IV PRN (13:09)
--- NOTE | 2021-07-30 13:11 | Internal Med Progress Note ---
SUBJECTIVE Subjective Patient information: Note initiated : 07/30/21 at 1:03 pm Service Date, if different from initiated Date: [] Patient: Isaac Conde 86 y/o M admitted on 07/28/21 for Fall. Chief Complaint: [] Interval history: Mr. Conde is a 86 year old M history of dysphagia status post recent PEG tube placement, atrial fibrillation's on anticoagulants, COPD, GERD, CHF, essential hypertensions, chronic kidney disease stage III, presenting with frequent falls and unable to be fed and failure to thrive. He was recently been hospitalized in discharge from [facility] for PEG tube placement by Dr. Cleveland. He was being discharged home with home health nursing. According to patient and stepson at the bedside, he has frequent falls as well as inability to be fed and unable to get up from bed over the past week since he got discharged home. Family sent the patient's back to our ED via ambulance for further evaluations and for placement needs. Patient is unable to tolerate even the tube feeding or else he was induced episodes of diarrhea. Patient and family is willing to go to SNF if this is were indicated. 07/28: Patient's was on 5 L of oxygen's overnight and currently on 3 L of oxygen's. He is also complaining of shortness of breath with cough so I decided to start him on COVID-specific treatments including dexamethasone and remdesivir while continuing to wean supplemental oxygen as tolerated. He is afebrile overnight. WBC 9.6 this morning. Potassium 2.9 this morning. Will do COVID-specific treatments with dexamethasone and remdesivir. We will do potassium IV replacement and will repeat serum potassium level afterward. We will continue to work with dietitians for PEG tube feeding recommendations. P ending physical therapy evaluation and treatment for placement pending. 07/29: Afebrile overnight. Patient is on 4 L/min of supplemental oxygen. Patient is committing of increasing degree of shortness of breath. He is complaining of cough with yellow sputum. He is coming of respiratory wheezings. He denies any fever or chills. He denies any chest pain. Continue remdesivir and dexamethasone as COVID specific treatment together with supplemental oxygen. Continue tube feeding as per dietitian's recommendations. Pending SNF placement once patient is out of the 10-day quarantine period. 07/30: [facility]red [facility] yesterday. Afebrile overnight. He is currently on the 5 L/min of oxygen's. Patient is complaining of improving degree of shortness of breath with cough. He denies respiratory wheezings. He denies fever or chills. He is complaining of nausea and constipation's. He is complain of dry mouth. Biotene mouth wash for dry mouth. Add Miralax and Milk of Magnesia for constipation. Continue remdesivir and dexamethasone as COVID specific treatment together with supplemental oxygen. Continue tube feeding as per dietitian's recommendations. Pending SNF placement once patient is out of the 10-day quarantine period. 07/31 Constitutional Vitals: Vital Signs Temp Pulse Resp BP Pulse Ox 96.5 F L 108 H 18 114/68 95 07/30/21 08:00 07/30/21 08:00 07/30/21 08:00 07/30/21 08:00 07/30/21 08:00 Period Temp Pulse Resp BP Sys/Koo Pulse Ox Last 24 Hr 96.5 F-96.5 F 90-108 18-30 81-114/57-68 94-96 Intake and Output 07/29/21 07/30/21 07/30/21 21:59 05:59 13:59 Intake Total 600 1501 430 Output Total 400 450 Balance 200 1051 430 Weight 78.562 kg 78.562 kg Patient Weight 07/31/21 05:59 Weight 78.562 kg Intake & Output: Intake & Output 07/29/21 07/30/21 07/30/21 21:59 05:59 13:59 Intake Total 600 1501 430 Output Total 400 450 Balance 200 1051 430 Weight 78.562 kg 78.562 kg Intake: IV 250 Veklury 100 mg In Sodium 250 Chloride 0.9% 250 ml @ 500 mls/ hr IV Q24H [facility] Rx#:[id number] Tube Feeding 0 1141 0 GI Tube Flush 600 360 180 Output: Gastric Drainage 0 PEG 0 Urine Catheter Amount 400 450 Other: Urine Appearance Clear Urine Color Dark Jessy Dark Jessy Uretheral (Lo) Dark Jessy Urine Odor Normal Exam: General: awake, No acute Distress, Eyes/N/T: EOMI Head/Neck: neck supple, CV: irreg irreg, No murmurs, Pulm: Clear b/l, no wheezing/rhonchi/rales Abd: soft, nontender, +BS x4 Ext: no clubbing/cyanosis, 1+ chronic b/l LE edema Neuro: Alert, no focal deficit, moves all extremities, Skin: warm/dry OBJ DATA Labs CBC & Chem 7: 07/30/21 05:49 07/30/21 05:57 Labs: Abnormal Lab Results 07/30/21 07/30/21 07/30/21 05:57 05:49 05:49 RBC 3.60 L Hgb 11.6 L Hct 37.6 L MCV 104.4 H MCHC 30.9 L MPV 11.8 H Neut % (Auto) 93.9 H Lymph % (Auto) 2.5 L Lymph # (Auto) 0.27 L Seg Neutrophils % Lymphocytes % Absolute Neutrophils 10.10 H POC pO2 POC HCO3 Sodium Potassium Carbon Dioxide 20 L BUN 39 H 31 H Creatinine Glucose 323 H 329 H POC Arterial Lactate Uric Acid Calcium Phosphorus 2.3 L 2.4 L Magnesium 2.8 H 2.6 H Total Bilirubin Direct Bilirubin 0.4 H GGT 72 H AST 57 H 58 H ALT 64 H 67 H Alkaline Phosphatase 215 H 189 H Lactate Dehydrogenase 313 H Total Protein 5.8 L 5.7 L Albumin 2.1 L 2.0 L Globulin Albumin/Globulin Ratio 0.6 L 0.5 L Prealbumin Urine Appearance Urine Protein Urine Ketones Urine Urobilinogen Urine RBC Urine WBC Urine Bacteria Hyaline Casts Urine Mucus 07/29/21 07/29/21 07/29/21 16:24 05:37 05:37 RBC 3.30 L Hgb 10.7 L Hct 33.8 L MCV 102.4 H MCHC MPV 10.9 H Neut % (Auto) 91.6 H Lymph % (Auto) 4.8 L Lymph # (Auto) 0.47 L Seg Neutrophils % Lymphocytes % Absolute Neutrophils 9.03 H POC pO2 78 L POC HCO3 26.3 H Sodium Potassium Carbon Dioxide BUN 37 H Creatinine Glucose 216 H POC Arterial Lactate 2.5 H Uric Acid 8.4 H Calcium 8.3 L Phosphorus Magnesium Total Bilirubin Direct Bilirubin 0.5 H GGT 78 H AST 109 H ALT 72 H Alkaline Phosphatase 170 H Lactate Dehydrogenase 256 H Total Protein 5.2 L Albumin 2.0 L Globulin Albumin/Globulin Ratio 0.6 L Prealbumin Urine Appearance Urine Protein Urine Ketones Urine Urobilinogen Urine RBC Urine WBC Urine Bacteria Hyaline Casts Urine Mucus 07/28/21 07/28/21 07/28/21 12:20 05:24 05:23 RBC 3.60 L Hgb 11.7 L Hct 36.8 L MCV 102.2 H MCHC MPV 10.5 H Neut % (Auto) 85.9 H Lymph % (Auto) 9.1 L Lymph # (Auto) 0.88 L Seg Neutrophils % Lymphocytes % Absolute Neutrophils 8.27 H POC pO2 POC HCO3 Sodium Potassium 3.1 L 2.9 L* Carbon Dioxide BUN 27 H Creatinine Glucose POC Arterial Lactate Uric Acid 8.5 H Calcium Phosphorus Magnesium Total Bilirubin Direct Bilirubin 0.6 H GGT 91 H AST 77 H ALT 70 H Alkaline Phosphatase 183 H Lactate Dehydrogenase 276 H Total Protein 5.5 L Albumin 1.9 L Globulin Albumin/Globulin Ratio 0.5 L Prealbumin Urine Appearance Urine Protein Urine Ketones Urine Urobilinogen Urine RBC Urine WBC Urine Bacteria Hyaline Casts Urine Mucus 07/27/21 07/27/21 07/27/21 15:44 12:49 12:49 RBC Hgb Hct MCV MCHC MPV Neut % (Auto) Lymph % (Auto) Lymph # (Auto) Seg Neutrophils % Lymphocytes % Absolute Neutrophils POC pO2 POC HCO3 Sodium 148 H Potassium 3.0 L Carbon Dioxide 33 H BUN 38 H Creatinine 1.3 H Glucose POC Arterial Lactate Uric Acid Calcium Phosphorus Magnesium Total Bilirubin 1.3 H Direct Bilirubin GGT AST 100 H ALT 94 H Alkaline Phosphatase 256 H Lactate Dehydrogenase Total Protein Albumin 2.9 L Globulin 3.9 H Albumin/Globulin Ratio 0.7 L Prealbumin 10.3 L Urine Appearance Hazy A Urine Protein 30 A Urine Ketones 5 A Urine Urobilinogen 2.0 A Urine RBC 20 H Urine WBC 9 H Urine Bacteria Few A Hyaline Casts 3 H Urine Mucus Few A 07/27/21 12:49 RBC 4.19 L Hgb Hct MCV MCHC MPV 10.9 H Neut % (Auto) Lymph % (Auto) Lymph # (Auto) Seg Neutrophils % 79 H Lymphocytes % 10 L Absolute Neutrophils POC pO2 POC HCO3 Sodium Potassium Carbon Dioxide BUN Creatinine Glucose POC Arterial Lactate Uric Acid Calcium Phosphorus Magnesium Total Bilirubin Direct Bilirubin GGT AST ALT Alkaline Phosphatase Lactate Dehydrogenase Total Protein Albumin Globulin Albumin/Globulin Ratio Prealbumin Urine Appearance Urine Protein Urine Ketones Urine Urobilinogen Urine RBC Urine WBC Urine Bacteria Hyaline Casts Urine Mucus Meds: Medications Acetaminophen (Acetaminophen 160 Mg/5 Ml Oral.Lesly) 650 mg PT Q6HP PRN; Protocol PRN Reason: Per Pain Protocol/Fever > 101 Last Admin: 07/30/21 09:39 Dose: 650 mg Documented by: Albuterol/Ipratropium (Ipratropium/Albuterol 3 Ml Ampul.Neb) 3 ml NEB Q2HP PRN PRN Reason: Wheezing Last Admin: 07/30/21 01:59 Dose: 3 ml Documented by: Apixaban (Apixaban 5 Mg Tablet) 2.5 mg PO BID [facility] Last Admin: 07/30/21 09:39 Dose: 2.5 mg Documented by: Atorvastatin Calcium (Atorvastatin 40 Mg Tablet) 40 mg PT DAILY [facility] Last Admin: 07/30/21 09:39 Dose: 40 mg Documented by: Chlorhexidine Gluconate (Chlorhexidine Gluconate 1 Ml Oral.Lesly) 15 ml SWABMOUTH BID [facility] Last Admin: 07/30/21 09:40 Dose: 15 ml Documented by: Dexamethasone (Dexamethasone 10 Mg/Ml Vial) 6 mg IV DAILY [facility] Last Admin: 07/30/21 09:38 Dose: 6 mg Documented by: Dextrose (Dextrose 50% 50 Ml Vial) 0 ml IV UD PRN PRN Reason: Per Sliding Scale Diagnostic Test (Pha) (Accu-Chek 1 Each Strip) 1 each FS ACHS [facility] Last Admin: 07/30/21 12:10 Dose: Not Given Documented by: Docusate Sodium (Docusate Sodium 10 Mg/Ml Ml) 100 mg PT BID [facility] Last Admin: 07/30/21 09:41 Dose: 100 mg Documented by: Finasteride (Finasteride 5 Mg Tablet) 5 mg PO QDAY [facility] Last Admin: 07/30/21 09:39 Dose: 5 mg Documented by: Glucose (Dextrose 31 Gm Oral.Susp) 15 gm PO PRN PRN PRN Reason: Hypoglycemia Glucose Oxid/Lactoperoxid/Muramidas (Lactoperoxi/Gluc Oxid/Pot Thio 1 Each Gel. .Ea.) 1 each TOPICAL PRN PRN PRN Reason: Dry Mouth Last Admin: 07/30/21 09:41 Dose: 1 each Documented by: Guaifenesin (Guaifenesin/Dextromethorphan Oral Lesly) 10 ml PO Q4HP PRN PRN Reason: Cough Last Admin: 07/30/21 08:09 Dose: 10 ml Documented by: REMDESIVIR 100 mg/ Sodium (Chloride) 250 mls @ 500 mls/hr IV Q24H [facility] Stop: 08/05/21 08:58 Last Infusion: 07/30/21 10:10 Dose: Infused Documented by: Ibuprofen (Ibuprofen 100 Mg/5 Ml Oral Susp) 600 mg PT QIDP PRN; Protocol PRN Reason: Per Pain Protocol/Fever > 101 Last Admin: 07/28/21 20:16 Dose: 600 mg Documented by: Insulin Human Lispro (Insulin Lispro 1 Unit/0.01 Ml Unit) 0 unit SQ [facility]; Protocol Last Admin: 07/30/21 12:01 Dose: 9 units Documented by: Magnesium Hydroxide (Magnesium Hydroxide 30 Ml Oral.Susp) 30 ml PO BIDP PRN PRN Reason: Constipation Morphine Sulfate (Morphine 4 Mg/Ml Vial) 2 mg IV Q4HP PRN; Protocol PRN Reason: Per Pain Protocol Ondansetron HCl (Ondansetron 4 Mg/2 Ml Vial) 4 mg IV Q6HP PRN PRN Reason: Nausea And Vomiting Pantoprazole Sodium (Pantoprazole 40 Mg Vial) [facility] Last Admin: 07/30/21 08:09 Dose: 40 mg Documented by: Febuxostat 80 Mg (Tablet) 0.5 dose PO Q48@0900 [facility] Last Admin: 07/30/21 10:34 Dose: Not Given Documented by: Febuxostat 80 Mg (Tablet) 1 dose PO Q48@0900 [facility] Last Admin: 07/29/21 10:38 Dose: Not Given Documented by: Polyethylene Glycol (Polyethylene Glycol 3350 17 Gm Packet) 17 gm PO DAILYP PRN PRN Reason: Constipation Potassium Chloride (Potassium Chloride 20 Meq/15 Ml Ml) 20 meq PT BIDCC [facility] Last Admin: 07/30/21 08:09 Dose: 20 meq Documented by: Senna (Sennosides 8.8 Mg/5 Ml Ml) 17.6 mg PT HS [facility] Last Admin: 07/29/21 20:55 Dose: 17.6 mg Documented by: Sodium Chloride (0.9 % Sodium Chloride 10 Ml Syringe) 10 ml IV Q8 [facility] Last Admin: 07/30/21 05:49 Dose: 10 ml Documented by: Trazodone HCl (Trazodone Hcl 50 Mg Tablet) 25 mg PT HSP PRN PRN Reason: Insomnia A/P Narrative A/P Narrative: Assessment and Plans: *Dysphagia w/Failure to thrive & Generalized weakness/deconditioning: -Dietitian consult -Physical therapy--->SNF placement -Tube feeding *CoVID pneumonia with acute hypoxic respiratory failure: -Supplemental oxygen therapy, currently on 4L/min of oxygen, wean as able -Remdesivir/Dexamethasone -Isolation: airborne and contact *chronic Atrial fibrillation: Metoprolol tartrate 50mg PT BID for rate control. Eliquis for anticoagulation. *CHF, stable: Metoprolol tartrate, HCTZ. *COPD w/chronic respiratory failure: *CKDIII: *Anemia, macrocytic, chronic: *Essential HTN/HLD: Metoprolol tartrate, HCTZ *Hypokalemia: RESOLVED *h/o GERD: *ppx: Eliquis / PPI Code status: DNI DNR Time Spent With Patient Time: Total time spent is greater than 50% in coordination of care (as documented) at patient's floor/unit and/or counseling patient: QUALITY VTE Deep Vein Thrombosis/Pulmonary Embolism Present on Admission: No
[2021-07-30] MEDS: METOPROLOL TARTRATE 25 MG TABLET PO SCH ×2 (13:46→15:00)
[2021-07-30] MEDS: SENNOSIDES 8.8 MG/5 ML ML PT SCH (20:35)
[2021-07-30] MEDS ORDERED: METOPROLOL TARTRATE 25 MG TABLET PO SCH (21:00)
[2021-07-31] MEDS: 0.9 % SODIUM CHLORIDE 10 ML SYRINGE IV SCH ×3 (06:01→21:58)
[2021-07-31] MEDS: PANTOPRAZOLE 40 MG VIAL IV SCH (07:19)
[2021-07-31] MEDS: INSULIN LISPRO 1 UNIT/0.01 ML UNIT SQ SCH ×4 (07:35→21:08)
--- NOTE | 2021-07-31 07:51 | Internal Med Progress Note ---
SUBJECTIVE Subjective Patient information: Note initiated : 07/31/21 at 7:44 am Service Date, if different from initiated Date: [] Patient: Isaac Conde 86 y/o M admitted on 07/28/21 for Fall. Chief Complaint: [] Interval history: Mr. Conde is a 86 year old M history of dysphagia status post recent PEG tube placement, atrial fibrillation's on anticoagulants, COPD, GERD, CHF, essential hypertensions, chronic kidney disease stage III, presenting with frequent falls and unable to be fed and failure to thrive. He was recently been hospitalized in discharge from [facility] for PEG tube placement by Dr. Cleveland. He was being discharged home with home health nursing. According to patient and stepson at the bedside, he has frequent falls as well as inability to be fed and unable to get up from bed over the past week since he got discharged home. Family sent the patient's back to our ED via ambulance for further evaluations and for placement needs. Patient is unable to tolerate even the tube feeding or else he was induced episodes of diarrhea. Patient and family is willing to go to SNF if this is were indicated. 07/28: Patient's was on 5 L of oxygen's overnight and currently on 3 L of oxygen's. He is also complaining of shortness of breath with cough so I decided to start him on COVID-specific treatments including dexamethasone and remdesivir while continuing to wean supplemental oxygen as tolerated. He is afebrile overnight. WBC 9.6 this morning. Potassium 2.9 this morning. Will do COVID-specific treatments with dexamethasone and remdesivir. We will do potassium IV replacement and will repeat serum potassium level afterward. We will continue to work with dietitians for PEG tube feeding recommendations. P ending physical therapy evaluation and treatment for placement pending. 07/29: Afebrile overnight. Patient is on 4 L/min of supplemental oxygen. Patient is committing of increasing degree of shortness of breath. He is complaining of cough with yellow sputum. He is coming of respiratory wheezings. He denies any fever or chills. He denies any chest pain. Continue remdesivir and dexamethasone as COVID specific treatment together with supplemental oxygen. Continue tube feeding as per dietitian's recommendations. Pending SNF placement once patient is out of the 10-day quarantine period. 07/30: Transferred from [facility] yesterday. Afebrile overnight. He is currently on the 5 L/min of oxygen's. Patient is complaining of improving degree of shortness of breath with cough. He denies respiratory wheezings. He denies fever or chills. He is complaining of nausea and constipation's. He is complain of dry mouth. Biotene mouth wash for dry mouth. Add Miralax and Milk of Magnesia for constipation. Continue remdesivir and dexamethasone as COVID specific treatment together with supplemental oxygen. Continue tube feeding as per dietitian's recommendations. Pending SNF placement once patient is out of the 10-day quarantine period. 07/31 Poor sleep last night. Frequent coughing up thick phlegm. Will discuss with dietary whether bolus dosing for tube feedings would better so that he can be upright position with bolus dosing, otherwise he is getting continuous tube feed s while laying down and concern may be contributing to reflux and less coughing. On 1 to 2 L of oxygen while awake but desats when he sleeps. Review of Systems: denies headache/fever/chills/nausea/vomiting/chest or abdominal pain/diarrhea. Otherwise see above. Constitutional Vitals: Vital Signs Temp Pulse Resp BP Pulse Ox 98.0 F 81 14 101/64 92 07/31/21 04:01 07/31/21 04:01 07/31/21 06:01 07/31/21 06:01 07/31/21 04:01 Period Temp Pulse Resp BP Sys/Koo Pulse Ox Last 24 Hr 96.4 F-98.2 F 81-110 14-31 85-120/48-82 64-99 Intake and Output 07/30/21 07/31/21 07/31/21 21:59 05:59 13:59 Intake Total 976 1145 Output Total 300 500 Balance 676 645 Weight 81.2 kg Intake & Output: Intake & Output 07/30/21 07/31/21 07/31/21 21:59 05:59 13:59 Intake Total 976 1145 Output Total 300 500 Balance 676 645 Weight 81.2 kg Intake: Tube Feeding 736 785 GI Tube Flush 240 360 Output: Urine Catheter Amount 500 Void Amount 300 Other: Urine Appearance Clear Clear Urine Color Dark Jessy Dark Jessy Urine Odor Strong Stool Size Smear Moderate Stool Color Brown Brown Stool Consistency Loose Soft # Bowel Movements 1 Exam: General: awake, No acute Distress, Eyes/N/T: EOMI Head/Neck: neck supple, CV: irreg irreg, No murmurs, Pulm: Clear b/l, no wheezing/rhonchi/rales Abd: soft, nontender, +BS x4 Ext: no clubbing/cyanosis, mild chronic b/l LE edema Neuro: Alert, no focal deficit, moves all extremities, Skin: warm/dry OBJ DATA Labs CBC & Chem 7: 07/30/21 05:49 07/30/21 05:57 Labs: Abnormal Lab Results 07/30/21 07/30/21 07/30/21 05:57 05:49 05:49 RBC 3.60 L Hgb 11.6 L Hct 37.6 L MCV 104.4 H MCHC 30.9 L MPV 11.8 H Neut % (Auto) 93.9 H Lymph % (Auto) 2.5 L Lymph # (Auto) 0.27 L Absolute Neutrophils 10.10 H POC pO2 POC HCO3 Potassium Carbon Dioxide 20 L BUN 39 H 31 H Glucose 323 H 329 H POC Arterial Lactate Uric Acid Calcium Phosphorus 2.3 L 2.4 L Magnesium 2.8 H 2.6 H Direct Bilirubin 0.4 H GGT 72 H AST 57 H 58 H ALT 64 H 67 H Alkaline Phosphatase 215 H 189 H Lactate Dehydrogenase 313 H Total Protein 5.8 L 5.7 L Albumin 2.1 L 2.0 L Albumin/Globulin Ratio 0.6 L 0.5 L Prealbumin 07/29/21 07/29/21 07/29/21 16:24 05:37 05:37 RBC 3.30 L Hgb 10.7 L Hct 33.8 L MCV 102.4 H MCHC MPV 10.9 H Neut % (Auto) 91.6 H Lymph % (Auto) 4.8 L Lymph # (Auto) 0.47 L Absolute Neutrophils 9.03 H POC pO2 78 L POC HCO3 26.3 H Potassium Carbon Dioxide BUN 37 H Glucose 216 H POC Arterial Lactate 2.5 H Uric Acid 8.4 H Calcium 8.3 L Phosphorus Magnesium Direct Bilirubin 0.5 H GGT 78 H AST 109 H ALT 72 H Alkaline Phosphatase 170 H Lactate Dehydrogenase 256 H Total Protein 5.2 L Albumin 2.0 L Albumin/Globulin Ratio 0.6 L Prealbumin 07/28/21 07/28/21 07/27/21 12:20 05:24 12:49 RBC Hgb Hct MCV MCHC MPV Neut % (Auto) Lymph % (Auto) Lymph # (Auto) Absolute Neutrophils POC pO2 POC HCO3 Potassium 3.1 L 2.9 L* Carbon Dioxide BUN 27 H Glucose POC Arterial Lactate Uric Acid 8.5 H Calcium Phosphorus Magnesium Direct Bilirubin 0.6 H GGT 91 H AST 77 H ALT 70 H Alkaline Phosphatase 183 H Lactate Dehydrogenase 276 H Total Protein 5.5 L Albumin 1.9 L Albumin/Globulin Ratio 0.5 L Prealbumin 10.3 L Meds: Medications Acetaminophen (Acetaminophen 160 Mg/5 Ml Oral.Lesly) 650 mg PT Q6HP PRN; Protocol PRN Reason: Per Pain Protocol/Fever > 101 Last Admin: 07/30/21 20:36 Dose: 650 mg Documented by: Albuterol/Ipratropium (Ipratropium/Albuterol 3 Ml Ampul.Neb) 3 ml NEB Q2HP PRN PRN Reason: Wheezing Last Admin: 07/30/21 01:59 Dose: 3 ml Documented by: Apixaban (Apixaban 5 Mg Tablet) 2.5 mg PO BID [facility] Last Admin: 07/30/21 20:35 Dose: 2.5 mg Documented by: Atorvastatin Calcium (Atorvastatin 40 Mg Tablet) 40 mg PT DAILY [facility] Last Admin: 07/30/21 09:39 Dose: 40 mg Documented by: Chlorhexidine Gluconate (Chlorhexidine Gluconate 1 Ml Oral.Lesly) 15 ml SWABMOUTH BID [facility] Last Admin: 07/30/21 20:35 Dose: 15 ml Documented by: Dexamethasone (Dexamethasone 10 Mg/Ml Vial) 6 mg IV DAILY [facility] Last Admin: 07/30/21 09:38 Dose: 6 mg Documented by: Dextrose (Dextrose 50% 50 Ml Vial) 0 ml IV UD PRN PRN Reason: Per Sliding Scale Diagnostic Test (Pha) (Accu-Chek 1 Each Strip) 1 each FS ACHS [facility] Last Admin: 07/31/21 07:35 Dose: 1 each Documented by: Docusate Sodium (Docusate Sodium 10 Mg/Ml Ml) 100 mg PT BID [facility] Last Admin: 07/30/21 20:35 Dose: 100 mg Documented by: Finasteride (Finasteride 5 Mg Tablet) 5 mg PO QDAY [facility] Last Admin: 07/30/21 09:39 Dose: 5 mg Documented by: Glucose (Dextrose 31 Gm Oral.Susp) 15 gm PO PRN PRN PRN Reason: Hypoglycemia Glucose Oxid/Lactoperoxid/Muramidas (Lactoperoxi/Gluc Oxid/Pot Thio 1 Each Gel..Ea.) 1 each TOPICAL PRN PRN PRN Reason: Dry Mouth Last Admin: 07/30/21 09:41 Dose: 1 each Documented by: Guaifenesin (Guaifenesin/Dextromethorphan Oral Lesly) 10 ml PO Q4HP PRN PRN Reason: Cough Last Admin: 07/30/21 20:36 Dose: 10 ml Documented by: REMDESIVIR 100 mg/ Sodium (Chloride) 250 mls @ 500 mls/hr IV Q24H [facility] Stop: 08/05/21 08:58 Last Infusion: 07/30/21 10:10 Dose: Infused Documented by: Ibuprofen (Ibuprofen 100 Mg/5 Ml Oral Susp) 600 mg PT QIDP PRN; Protocol PRN Reason: Per Pain Protocol/Fever > 101 Last Admin: 07/28/21 20:16 Dose: 600 mg Documented by: Insulin Human Lispro (Insulin Lispro 1 Unit/0.01 Ml Unit) 0 unit SQ [facility]; Protocol Last Admin: 07/31/21 07:35 Dose: 3 units Documented by: Magnesium Hydroxide (Magnesium Hydroxide 30 Ml Oral.Susp) 30 ml PO BIDP PRN PRN Reason: Constipation Metoprolol Tartrate (Metoprolol Tartrate 5 Mg/5 Ml Vial) 5 mg IV Q2HP PRN PRN Reason: Tachyarrhythmias HR>110 Metoprolol Tartrate (Metoprolol Tartrate 25 Mg Tablet) 25 mg PO BID [facility] Last Admin: 07/30/21 20:35 Dose: 25 mg Documented by: Morphine Sulfate (Morphine 4 Mg/Ml Vial) 2 mg IV Q4HP PRN; Protocol PRN Reason: Per Pain Protocol Ondansetron HCl (Ondansetron 4 Mg/2 Ml Vial) 4 mg IV Q6HP PRN PRN Reason: Nausea And Vomiting Pantoprazole Sodium (Pantoprazole 40 Mg [facility]ial) [facility] Last Admin: 07/31/21 07:19 Dose: 40 mg Documented by: Febuxostat 80 Mg (Tablet) 0.5 dose PO Q48@0900 [facility] Last Admin: 07/30/21 10:34 Dose: Not Given Documented by: Febuxostat 80 Mg (Tablet) 1 dose PO Q48@0900 [facility] Last Admin: 07/29/21 10:38 Dose: Not Given Documented by: Polyethylene Glycol (Polyethylene Glycol 3350 17 Gm Packet) 17 gm PO DAILYP PRN PRN Reason: Constipation Potassium Chloride (Potassium Chloride 20 Meq/15 Ml Ml) 20 meq PT BIDCC [facility] Last Admin: 07/30/21 16:31 Dose: 20 meq Documented by: Senna (Sennosides 8.8 Mg/5 Ml Ml) 17.6 mg PT HS [facility] Last Admin: 07/30/21 20:35 Dose: 17.6 mg Documented by: Sodium Chloride (0.9 % Sodium Chloride 10 Ml Syringe) 10 ml IV Q8 [facility] Last Admin: 07/31/21 06:01 Dose: 10 ml Documented by: Trazodone HCl (Trazodone Hcl 50 Mg Tablet) 25 mg PT HSP PRN PRN Reason: Insomnia A/P Narrative A/P Narrative: Assessment and Plans: *Dysphagia w/Failure to thrive & Generalized weakness/deconditioning: -Dietitian consult , bolus vs cont TF's? -Physical therapy--->SNF placement -Tube feeding *CoVID pneumonia with acute hypoxic respiratory failure: -Supplemental oxygen therapy, now on 2L/min of oxygen, wean as able -Remdesivir/Dexamethasone -Isolation: airborne and contact *chronic Atrial fibrillation: Metoprolol tartrate BID for rate control. Eliquis for anticoagulation. *CHF, stable: Metoprolol *COPD w/chronic respiratory failure: *CKDIII: *Anemia, macrocytic, chronic: check b12/folate *Essential HTN/HLD: Metoprolol tartrate (reduced for soft BP) *Hypokalemia: RESOLVED *h/o GERD: *ppx: Eliquis / PPI Code status: DNI DNR Time Spent With Patient Time: Total time spent is greater than 50% in coordination of care (as documented) at patient's floor/unit and/or counseling patient: Total time spent with greater than 50% in coordination of care (as documented) at patient's floor/unit and/or counseling patient:: 25 - 35 minutes QUALITY VTE Deep Vein Thrombosis/Pulmonary Embolism Present on Admission: No
[2021-07-31] MEDS ORDERED: diphenhydrAMINE 25 MG CAPSULE PO PRN (09:19)
[2021-07-31] MEDS: FINASTERIDE 5 MG TABLET PO SCH (09:23)
[2021-07-31] MEDS: APIXABAN 5 MG TABLET PO SCH ×2 (09:23→21:16)
[2021-07-31] MEDS: ATORVASTATIN 40 MG TABLET PT SCH (09:25)
[2021-07-31] MEDS: METOPROLOL TARTRATE 25 MG TABLET PO SCH ×2 (09:25→21:16)
[2021-07-31] MEDS: CHLORHEXIDINE GLUCONATE 1 ML ORAL.SOL SWABMOUTH SCH ×2 (09:26→21:17)
[2021-07-31] MEDS: DEXAMETHASONE 10 MG/ML VIAL IV SCH (09:26)
[2021-07-31] MEDS: POTASSIUM CHLORIDE 20 MEQ/15 ML ML PT SCH ×2 (09:26→17:11)
[2021-07-31] MEDS: REMDESIVIR 100 MG in 0.9 % SODIUM CHLORIDE 250 ML IV SCH (09:26)
[2021-07-31] MEDS: LACTOPEROXI/GLUC OXID/POT THIO 1 EACH GEL..EA. TOPICAL PRN (09:27)
[2021-07-31] MEDS: guaiFENesin/DEXTROMETHORPHAN ORAL SOL PO PRN ×2 (09:27→21:21)
[2021-07-31] MEDS: DOCUSATE SODIUM 10 MG/ML ML PT SCH ×2 (09:27→21:08)
[2021-07-31] MEDS: ACETAMINOPHEN 160 MG/5 ML ORAL.SOL PT PRN ×2 (09:27→21:21)
[2021-07-31] MEDS: SENNOSIDES 8.8 MG/5 ML ML PT SCH (21:08)
[2021-07-31] MEDS: MELATONIN 3 MG TABLET PO SCH (21:15)
[2021-08-01] MEDS: 0.9 % SODIUM CHLORIDE 10 ML SYRINGE IV SCH ×3 (05:48→21:47)
[2021-08-01 06:51] LABS: ALT/SGPT 45 U/L (<40); AST/SGOT 35 U/L (<40); Albumin 2.1 gm/dL (3.2-5.2); Albumin/Globulin Ratio 0.6 (1.0-2.3); Alkaline Phosphatase 172 U/L (39-117); Bilirubin,Direct 0.4 mg/dL (<0.3); Bilirubin,Total 0.6 mg/dL (0.1-1.0); Blood Urea Nitrogen 28 mg/dL (8-23); Calcium 8.7 mg/dL (8.6-10.4); Carbon Dioxide 29 mmol/L (22-30); Chloride 106 mmol/L (96-108); Globulin 3.3 gm/dL (2.2-3.7); Glomerular Filtration Rate 86; Glucose 127 mg/dL (70-105); Lactate Dehydrogenase 309 U/L (135-225); Phosphorous 1.6 mg/dL (2.5-4.5); Triglycerides 138 mg/dL (<150); Uric Acid 3.6 mg/dL (2.5-8.0)
--- NOTE | 2021-08-01 07:32 | Internal Med Progress Note ---
SUBJECTIVE Subjective Patient information: Note initiated : 08/01/21 at 7:30 am Service Date, if different from initiated Date: [] Patient: Isaac Conde 86 y/o M admitted on 07/28/21 for Fall. Chief Complaint: [] Interval history: Mr. Conde is a 86 year old M history of dysphagia status post recent PEG tube placement, atrial fibrillation's on anticoagulants, COPD, GERD, CHF, essential hypertensions, chronic kidney disease stage III, presenting with frequent falls and unable to be fed and failure to thrive. He was recently been hospitalized in discharge from [facility] for PEG tube placement by Dr. Cleveland. He was being discharged home with home health nursing. According to patient and stepson at the bedside, he has frequent falls as well as inability to be fed and unable to get up from bed over the past week since he got discharged home. Family sent the patient's back to our ED via ambulance for further evaluations and for placement needs. Patient is unable to tolerate even the tube feeding or else he was induced episodes of diarrhea. Patient and family is willing to go to SNF if this is were indicated. 07/28: Patient's was on 5 L of oxygen's overnight and currently on 3 L of oxygen's. He is also complaining of shortness of breath with cough so I decided to start him on COVID-specific treatments including dexamethasone and remdesivir while continuing to wean supplemental oxygen as tolerated. He is afebrile overnight. WBC 9.6 this morning. Potassium 2.9 this morning. Will do COVID-specific treatments with dexamethasone and remdesivir. We will do potassium IV replacement and will repeat serum potassium level afterward. We will continue to work with dietitians for PEG tube feeding recommendations. P ending physical therapy evaluation and treatment for placement pending. 07/29: Afebrile overnight. Patient is on 4 L/min of supplemental oxygen. Patient is committing of increasing degree of shortness of breath. He is complaining of cough with yellow sputum. He is coming of respiratory wheezings. He denies any fever or chills. He denies any chest pain. Continue remdesivir and dexamethasone as COVID specific treatment together with supplemental oxygen. Continue tube feeding as per dietitian's recommendations. Pending SNF placement once patient is out of the 10-day quarantine period. 07/30: Transferred from [facility] to [facility] yesterday. Afebrile overnight. He is currently on the 5 L/min of oxygen's. Patient is complaining of improving degree of shortness of breath with cough. He denies respiratory wheezings. He denies fever or chills. He is complaining of nausea and constipation's. He is complain of dry mouth. Biotene mouth wash for dry mouth. Add Miralax and Milk of Magnesia for constipation. Continue remdesivir and dexamethasone as COVID specific treatment together with supplemental oxygen. Continue tube feeding as per dietitian's recommendations. Pending SNF placement once patient is out of the 10-day quarantine period. 07/31 Poor sleep last night. Frequent coughing up thick phlegm. Will discuss with dietary whether bolus dosing for tube feedings would better so that he can be upright position with bolus dosing, otherwise he is getting continuous tube feed s while laying down and concern may be contributing to reflux and less coughing. On 1 to 2 L of oxygen while awake but desats when he sleeps. 08/01 Patient feeling a little better. Per nurse patient has less oral secretions and coughing since doing bolus dosing of tube feedings. On room air currently. Phosphorus low. Liver enzymes which were mild have improved. Hypoalbuminemia. Review of Systems: denies headache/fever/chills/nausea/vomiting/chest or abdominal pain/diarrhea. Otherwise see above. Constitutional Vitals: Vital Signs Temp Pulse Resp BP Pulse Ox 98.2 F 72 19 117/73 95 08/01/21 04:01 07/31/21 18:01 08/01/21 06:01 08/01/21 06:01 07/31/21 20:00 Period Temp Pulse Resp BP Sys/Koo Pulse Ox Last 24 Hr 97 F-98.6 F 53-97 14-27 88-124/56-99 94-99 Intake and Output 07/31/21 08/01/21 08/01/21 21:59 05:59 13:59 Intake Total 1038 674 Output Total 400 425 Balance 638 249 Weight 80.83 kg Intake & Output: Intake & Output 07/31/21 08/01/21 08/01/21 21:59 05:59 13:59 Intake Total 1038 674 Output Total 400 425 Balance 638 249 Weight 80.83 kg Intake: Tube Feeding 938 474 GI Tube Flush 100 200 Output: Urine Catheter Amount 400 Void Amount 425 Other: Urine Appearance Clear Clear Urine Color Dark Yellow Dark Jessy Urine Odor Normal Exam: General: awake, No acute Distress, Eyes/N/T: EOMI Head/Neck: neck supple, CV: irreg irreg, No murmurs, Pulm: mild rhonchi b/l, no wheezing Abd: soft, nontender, +BS x4 Ext: no clubbing/cyanosis, mild chronic b/l LE edema Neuro: Alert, no focal deficit, moves all extremities, Skin: warm/dry OBJ DATA Labs CBC & Chem 7: 07/30/21 05:49 08/01/21 05:34 Labs: Abnormal Lab Results 08/01/21 07/30/21 07/30/21 05:34 05:57 05:49 RBC Hgb Hct MCV MCHC MPV Neut % (Auto) Lymph % (Auto) Lymph # (Auto) Absolute Neutrophils POC pO2 POC HCO3 Carbon Dioxide 20 L Anion Gap 5.0 L BUN 28 H 39 H 31 H Glucose 127 H 323 H 329 H POC Arterial Lactate Phosphorus 1.6 L 2.3 L 2.4 L Magnesium 2.8 H 2.6 H Direct Bilirubin 0.4 H 0.4 H GGT 73 H 72 H AST 57 H 58 H ALT 45 H 64 H 67 H Alkaline Phosphatase 172 H 215 H 189 H Lactate Dehydrogenase 309 H 313 H Total Protein 5.4 L 5.8 L 5.7 L Albumin 2.1 L 2.1 L 2.0 L Albumin/Globulin Ratio 0.6 L 0.6 L 0.5 L 07/30/21 07/29/21 05:49 16:24 RBC 3.60 L Hgb 11.6 L Hct 37.6 L MCV 104.4 H MCHC 30.9 L MPV 11.8 H Neut % (Auto) 93.9 H Lymph % (Auto) 2.5 L Lymph # (Auto) 0.27 L Absolute Neutrophils 10.10 H POC pO2 78 L POC HCO3 26.3 H Carbon Dioxide Anion Gap BUN Glucose POC Arterial Lactate 2.5 H Phosphorus Magnesium Direct Bilirubin GGT AST ALT Alkaline Phosphatase Lactate Dehydrogenase Total Protein Albumin Albumin/Globulin Ratio Meds: Medications Acetaminophen (Acetaminophen 160 Mg/5 Ml Oral.Lesly) 650 mg PT Q6HP PRN; Protocol PRN Reason: Per Pain Protocol/Fever > 101 Last Admin: 07/31/21 21:21 Dose: 650 mg Documented by: Albuterol/Ipratropium (Ipratropium/Albuterol 3 Ml Ampul.Neb) 3 ml NEB Q2HP PRN PRN Reason: Wheezing Last Admin: 07/30/21 01:59 Dose: 3 ml Documented by: Apixaban (Apixaban 5 Mg Tablet) 2.5 mg PO BID [facility] Last Admin: 07/31/21 21:16 Dose: 2.5 mg Documented by: Atorvastatin Calcium (Atorvastatin 40 Mg Tablet) 40 mg PT DAILY [facility] Last Admin: 07/31/21 09:25 Dose: 40 mg Documented by: Chlorhexidine Gluconate (Chlorhexidine Gluconate 1 Ml Oral.Lesly) 15 ml SWABMOUTH BID [facility] Last Admin: 07/31/21 21:17 Dose: 15 ml Documented by: Dexamethasone (Dexamethasone 10 Mg/Ml Vial) 6 mg IV DAILY [facility] Last Admin: 07/31/21 09:26 Dose: 6 mg Documented by: Dextrose (Dextrose 50% 50 Ml Vial) 0 ml IV UD PRN PRN Reason: Per Sliding Scale Diagnostic Test (Pha) (Accu-Chek 1 Each Strip) 1 each FS ACHS [facility] Last Admin: 07/31/21 21:58 Dose: 1 each Documented by: Diphenhydramine HCl (Diphenhydramine 25 Mg Capsule) 25 mg PO HSP PRN PRN Reason: Insomnia Docusate Sodium (Docusate Sodium 10 Mg/Ml Ml) 100 mg PT BID [facility] Last Admin: 07/31/21 21:08 Dose: Not Given Documented by: Finasteride (Finasteride 5 Mg Tablet) 5 mg PO QDAY [facility] Last Admin: 07/31/21 09:23 Dose: 5 mg Documented by: Glucose (Dextrose 31 Gm Oral.Susp) 15 gm PO PRN PRN PRN Reason: Hypoglycemia Glucose Oxid/Lactoperoxid/Muramidas (Lactoperoxi/Gluc Oxid/Pot Thio 1 Each Gel..Ea.) 1 each TOPICAL PRN PRN PRN Reason: Dry Mouth Last Admin: 07/31/21 09:27 Dose: 1 each Documented by: Guaifenesin (Guaifenesin/Dextromethorphan Oral Lesly) 10 ml PO Q4HP PRN PRN Reason: Cough Last Admin: 07/31/21 21:21 Dose: 10 ml Documented by: REMDESIVIR 100 mg/ Sodium (Chloride) 250 mls @ 500 mls/hr IV Q24H [facility] Stop: 08/05/21 08:58 Last Infusion: 07/31/21 09:56 Dose: Infused Documented by: Ibuprofen (Ibuprofen 100 Mg/5 Ml Oral Susp) 600 mg PT QIDP PRN; Protocol PRN Reason: Per Pain Protocol/Fever > 101 Last Admin: 07/28/21 20:16 Dose: 600 mg Documented by: Insulin Human Lispro (Insulin Lispro 1 Unit/0.01 Ml Unit) 0 unit SQ ACHS [facility]; Protocol Last Admin: 07/31/21 21:08 Dose: Not Given Documented by: Magnesium Hydroxide (Magnesium Hydroxide 30 Ml Oral.Susp) 30 ml PO BIDP PRN PRN Reason: Constipation Melatonin (Melatonin 3 Mg Tablet) 3 mg PO QHS [facility] Last Admin: 07/31/21 21:15 Dose: 3 mg Documented by: Metoprolol Tartrate (Metoprolol Tartrate 5 Mg/5 Ml Vial) 5 mg IV Q2HP PRN PRN Reason: Tachyarrhythmias HR>110 Metoprolol Tartrate (Metoprolol Tartrate 25 Mg Tablet) 12.5 mg PO BID [facility] Last Admin: 07/31/21 21:16 Dose: 12.5 mg Documented by: Morphine Sulfate (Morphine 4 Mg/Ml Vial) 2 mg IV Q4HP PRN; Protocol PRN Reason: Per Pain Protocol Ondansetron HCl (Ondansetron 4 Mg/2 Ml Vial) 4 mg IV Q6HP PRN PRN Reason: Nausea And Vomiting Pantoprazole Sodium (Pantoprazole 40 Mg Vial) 40 mg IV QAMAC [facility] Last Admin: 07/31/21 07:19 Dose: 40 mg Documented by: Febuxostat 80 Mg (Tablet) 0.5 dose PO Q48@0900 [facility] Last Admin: 07/30/21 10:34 Dose: Not Given Documented by: Febuxostat 80 Mg (Tablet) 1 dose PO Q48@0900 [facility] Last Admin: 07/31/21 12:45 Dose: Not Given Documented by: Polyethylene Glycol (Polyethylene Glycol 3350 17 Gm Packet) 17 gm PO DAILYP PRN PRN Reason: Constipation Potassium Chloride (Potassium Chloride 20 Meq/15 Ml Ml) 20 meq PT BIDCC [facility] Last Admin: 07/31/21 17:11 Dose: 20 meq Documented by: Senna (Sennosides 8.8 Mg/5 Ml Ml) 17.6 mg PT HS [facility] Last Admin: 07/31/21 21:08 Dose: Not Given Documented by: Sodium Chloride (0.9 % Sodium Chloride 10 Ml Syringe) 10 ml IV Q8 [facility] Last Admin: 08/01/21 05:48 Dose: 10 ml Documented by: Trazodone HCl (Trazodone Hcl 50 Mg Tablet) 25 mg PT HSP PRN PRN Reason: Insomnia A/P Narrative A/P Narrative: Assessment and Plans: *Dysphagia w/Failure to thrive & Generalized weakness/deconditioning: -Dietitian consult , bolus TF -Physical therapy--->SNF placement -Tube feeding *CoVID pneumonia with acute hypoxic respiratory failure: -Supplemental oxygen therapy, now on Room Air at least while awake -Remdesivir/Dexamethasone -Isolation: airborne and contact *chronic Atrial fibrillation: Metoprolol tartrate BID for rate control. Eliquis for anticoagulation. *CHF, stable: Metoprolol *COPD w/chronic respiratory failure: *CKDIII: *Anemia, macrocytic, chronic: check b12/folate ok, folate borderline *Essential HTN/HLD: Metoprolol tartrate (reduced for soft BP) *Hypokalemia: resolved *h/o GERD: *ppx: Eliquis / PPI Code status: DNI DNR Time Spent With Patient Time: Total time spent is greater than 50% in coordination of care (as documented) at patient's floor/unit and/or counseling patient: Total time spent with greater than 50% in coordination of care (as documented) at patient's floor/unit and/or counseling patient:: 25 - 35 minutes QUALITY VTE Deep Vein Thrombosis/Pulmonary Embolism Present on Admission: No
[2021-08-01] MEDS: POTASSIUM CHLORIDE 20 MEQ/15 ML ML PT SCH ×2 (07:53→17:59)
[2021-08-01] MEDS: PANTOPRAZOLE 40 MG VIAL IV SCH (07:53)
[2021-08-01] MEDS: INSULIN LISPRO 1 UNIT/0.01 ML UNIT SQ SCH ×4 (08:11→21:47)
[2021-08-01] MEDS: ACETAMINOPHEN 160 MG/5 ML ORAL.SOL PT PRN (08:48)
[2021-08-01] MEDS: LACTOPEROXI/GLUC OXID/POT THIO 1 EACH GEL..EA. TOPICAL PRN (08:48)
[2021-08-01] MEDS: DOCUSATE SODIUM 10 MG/ML ML PT SCH ×2 (08:48→21:47)
[2021-08-01] MEDS: DEXAMETHASONE 10 MG/ML VIAL IV SCH (08:49)
[2021-08-01] MEDS: APIXABAN 5 MG TABLET PO SCH ×2 (08:49→21:29)
[2021-08-01] MEDS: ATORVASTATIN 40 MG TABLET PT SCH (08:50)
[2021-08-01] MEDS: FOLIC ACID 1 MG TABLET PO SCH (08:50)
[2021-08-01] MEDS: METOPROLOL TARTRATE 25 MG TABLET PO SCH ×2 (08:50→21:29)
[2021-08-01] MEDS: REMDESIVIR 100 MG in 0.9 % SODIUM CHLORIDE 250 ML IV SCH (08:58)
[2021-08-01] MEDS: FINASTERIDE 5 MG TABLET PO SCH (09:18)
[2021-08-01] MEDS: PHOSPHORUS 250 MG TABLET PO SCH ×2 (09:18→21:29)
[2021-08-01] MEDS: guaiFENesin/DEXTROMETHORPHAN ORAL SOL PO PRN (09:19)
[2021-08-01] MEDS: CHLORHEXIDINE GLUCONATE 1 ML ORAL.SOL SWABMOUTH SCH ×2 (09:19→21:46)
--- NOTE | 2021-08-01 09:49 | Discharge Summary ---
Discharge Provider Provider IMPORTANT FOLLOW-UP INFORMATION FOR PCP: Patient information: Note initiated : 08/01/21 at 9:48 am Service Date, if different from initiated Date: [] Patient: Isaac Conde 86 y/o M admitted on 07/28/21 for Fall. Chief Complaint: [] Date of admission: 07/28/21 08:56 Discharge date: 08/02/21 Primary care physician: Randall Orozco MD Consults: 07/27/21 Consult to Physician [CONS] Stat Comment: Consulting Provider: Ryan Handy Reason For Exam: Physician to Consult 08/01/21 08:24 Consult to Physician [CONS] Routine Comment: suicide attempt, overdose meds and ETOH. Need ASA Consulting Provider: [facility] Reason For Exam: Physician to Consult COURSE Hospital Course Hospital course: Interval history: Mr. Conde is a 86 year old M history of dysphagia status post recent PEG tube placement, atrial fibrillation's on anticoagulants, COPD, GERD, CHF, essential hypertensions, chronic kidney disease stage III, presenting with frequent falls and unable to be fed and failure to thrive. He was recently been hospitalized in discharge from [facility] for PEG tube placement by Dr. Cleveland. He was being discharged home with home health nursing. According to patient and stepson at the bedside, he has frequent falls as well as inability to be fed and unable to get up from bed over the past week since he got discharged home. Family sent the patient's back to our ED via ambulance for further evaluations and for placement needs. Patient is unable to tolerate even the tube feeding or else he was induced episodes of diarrhea. Patient and family is willing to go to SNF if this is were indicated. 07/28: Patient's was on 5 L of oxygen's overnight and currently on 3 L of oxygen's. He is also complaining of shortness of breath with cough so I decided to start him on COVID-specific treatments including dexamethasone and remdesivir while continuing to wean supplemental oxygen as tolerated. He is afebrile overnight. WBC 9.6 this morning. Potassium 2.9 this morning. Will do COVID-specific treatments with dexamethasone and remdesivir. We will do potassium IV replacement and will repeat serum potassium level afterward. We will continue to work with dietitians for PEG tube feeding recommendations. Pending physical therapy evaluation and treatment for placement pending. 07/29: Afebrile overnight. Patient is on 4 L/min of supplemental oxygen. Patient is committing of increasing degree of shortness of breath. He is complaining of cough with yellow sputum. He is coming of respiratory wheezings. He denies any fever or chills. He denies any chest pain. Continue remdesivir and dexamethasone as COVID specific treatment together with supplemental oxygen. Continue tube feeding as per dietitian's recommendations. Pending SNF placement once patient is out of the 10-day quarantine period. 07/30: Transferred from [facility] to [facility] yesterday. Afebrile overnight. He is currently on the 5 L/min of oxygen's. Patient is complaining of improving degree of shortness of breath with cough. He denies respiratory wheezings. He denies fever or chills. He is complaining of nausea and constipation's. He is complain of dry mouth. Biotene mouth wash for dry mouth. Add Miralax and Milk of Magnesia for constipation. Continue remdesivir and dexamethasone as COVID specific treatment together with supplemental oxygen. Continue tube feeding as per dietitian's recommendations. Pending SNF placement once patient is out of the 10-day quarantine period. 07/31 Poor sleep last night. Frequent coughing up thick phlegm. Will discuss with dietary whether bolus dosing for tube feedings would better so that he can be upright position with bolus dosing, otherwise he is getting continuous tube feeds while laying down and concern may be contributing to reflux and less coughing. On 1 to 2 L of oxygen while awake but desats when he sleeps. 08/01 Patient feeling a little better. Per nurse patient has less oral secretions and coughing since doing bolus dosing of tube feedings. On room air currently. Phosphorus low. Liver enzymes which were mild have improved. Hypoalbuminemia. 08/02 Patient with no overnight event or new complaints. On room air currently. Changing to swing bed status. She is on COVID precautions. Assessment and Plans: *Dysphagia w/Failure to thrive & Generalized weakness/deconditioning: -Dietitian consult , bolus TF -Physical therapy--->SNF placement *CoVID pneumonia with acute hypoxic respiratory failure: -Supplemental oxygen therapy, now on Room Air at least while awake *chronic Atrial fibrillation: Metoprolol tartrate BID for rate control. Eliquis for anticoagulation. *CHF, stable: Metoprolol *COPD w/chronic respiratory failure: *CKDIII: *Anemia, macrocytic, chronic: check b12/folate ok, folate borderline *Essential HTN/HLD: Metoprolol tartrate (reduced for soft BP) *Hypokalemia: resolved *h/o GERD: Discharge diagnosis: Failure to thrive and dysphagia on tube feedings COVID- pneumonia Secondary discharge diagnosis: A. fib CHF COPD chronic kidney disease chronic anemia hypertension hypokalemia Time Spent with Patient Time attestation: Total time spent providing and/or coordinating discharge services: Time spent: Greater than 30 minutes EXAM Constitutional Vitals: Temp Pulse Resp BP Pulse Ox 98.1 F 72 17 110/82 94 08/01/21 08:01 07/31/21 18:01 08/01/21 08:01 08/01/21 08:01 08/01/21 08:01 Discharge Data Data Completed and Pending Labs on day of discharge: Labs from last 24 hours 08/01/21 05:34 Sodium 140 Potassium 4.9 Chloride 106 Carbon Dioxide 29 Anion Gap 5.0 L BUN 28 H Creatinine 0.7 GFR Calculation 86 Glucose 127 H Uric Acid 3.6 Calcium 8.7 Phosphorus 1.6 L Magnesium 2.4 Total Bilirubin 0.6 Direct Bilirubin 0.4 H GGT 73 H AST 35 ALT 45 H Alkaline Phosphatase 172 H Lactate Dehydrogenase 309 H Total Protein 5.4 L Albumin 2.1 L Globulin 3.3 Albumin/Globulin Ratio 0.6 L Triglycerides 138 Discharge Plan Patient/Caregiver Discharge Instructions Additional Instructions: Bolus tube feedings per dietary RT to evaluate for home oxygen need. Prescriptions: Continued methylprednisolone 4 mg tablet 4 mg PO QDAY Qty: 90 1RF omeprazole 20 mg capsule,delayed release(DR/EC) 40 mg PO QDAY 0RF Eliquis 2.5 mg tablet 2.5 mg PO BID 0RF finasteride 5 mg tablet 5 mg PO QDAY 0RF metoprolol succinate 50 mg tablet extended release 24 hr 50 mg PO BID 0RF atorvastatin 40 mg Tablet 40 mg PO DAILY Qty: 60 6RF potassium chloride 10 mEq tablet extended release 10 meq PO QDAY Qty: 60 6RF febuxostat 80 mg tablet 80 mg PO Q48H 0RF Rx Instructions: take one tablet by mouth one day then take one half tablet by mouth on other day *alternating days* febuxostat 80 mg Tablet 40 mg PO Q48H 0RF Rx Instructions: alternate 1 tab with 1/2 tab every other day Follow Up Plan Follow up with: Randall Orozco MD [Primary Care Provider] - Disposition: [facility] Swing Bed Prognosis: Fair Discharge Orders: Discharge Order (Routine); Ordered 08/02/21 Ordered By: Bashir Garcia [facility] VTE Deep Vein Thrombosis/Pulmonary Embolism Present on Admission: No
[2021-08-01] MEDS: MELATONIN 3 MG TABLET PO SCH (21:30)
[2021-08-01] MEDS: SENNOSIDES 8.8 MG/5 ML ML PT SCH (21:47)
[2021-08-02 06:21] LABS: ALT/SGPT 40 U/L (<40); AST/SGOT 33 U/L (<40); Albumin 2.2 gm/dL (3.2-5.2); Albumin/Globulin Ratio 0.8 (1.0-2.3); Alkaline Phosphatase 184 U/L (39-117); Bilirubin,Direct 0.3 mg/dL (<0.3); Bilirubin,Total 0.5 mg/dL (0.1-1.0); Blood Urea Nitrogen 25 mg/dL (8-23); Calcium 8.3 mg/dL (8.6-10.4); Carbon Dioxide 29 mmol/L (22-30); Chloride 104 mmol/L (96-108); Globulin 2.9 gm/dL (2.2-3.7); Glomerular Filtration Rate 86; Glucose 117 mg/dL (70-105); Lactate Dehydrogenase 314 U/L (135-225); Phosphorous 2.2 mg/dL (2.5-4.5); Triglycerides 119 mg/dL (<150); Uric Acid 3.2 mg/dL (2.5-8.0)
[2021-08-02] MEDS: 0.9 % SODIUM CHLORIDE 10 ML SYRINGE IV SCH (06:36)
[2021-08-02] MEDS: PANTOPRAZOLE 40 MG VIAL IV SCH (07:21)
[2021-08-02] MEDS: POTASSIUM CHLORIDE 20 MEQ/15 ML ML PT SCH (07:21)
[2021-08-02] MEDS: INSULIN LISPRO 1 UNIT/0.01 ML UNIT SQ SCH ×2 (07:22→11:34)
[2021-08-02] MEDS: APIXABAN 5 MG TABLET PO SCH (08:51)
[2021-08-02] MEDS: DEXAMETHASONE 10 MG/ML VIAL IV SCH (08:51)
[2021-08-02] MEDS: METOPROLOL TARTRATE 25 MG TABLET PO SCH (08:52)
[2021-08-02] MEDS: FINASTERIDE 5 MG TABLET PO SCH (08:53)
[2021-08-02] MEDS: FOLIC ACID 1 MG TABLET PO SCH (08:53)
[2021-08-02] MEDS: DOCUSATE SODIUM 10 MG/ML ML PT SCH (08:54)
[2021-08-02] MEDS: ATORVASTATIN 40 MG TABLET PT SCH (08:54)
[2021-08-02] MEDS: CHLORHEXIDINE GLUCONATE 1 ML ORAL.SOL SWABMOUTH SCH (08:58)
== END 2021-08-02 12:10 | disposition other institution (70) | DRG 640 ==
LOC: MEDSUR 12:28 → ED 12:28 → MEDSUR 17:50 → ICU 07-29 15:55 → MEDSUR 08-01 12:35
PROVIDERS: ADMIT Internal Medicine; ATTEND Internal Medicine